=== PATIENT | male | born 1970 | race Caucasian/White ===

== ENCOUNTER 2021-01-14 18:51 | Inpatient (IN) | payer BC, SELFPAY ==
[2021-01-14 18:52] VITALS: BP 164/77; PULSE 97; RESP 24; TEMP 37.7; O2SAT 97; BMI 42.8
--- NOTE | 2021-01-14 19:15 | EX.ED.DYSGE1 ---
HPI History of Present Illness Chief Complaint: General Illness Informant: patient and spouse/S.O. Narrative Narrative: 50-year-old male presents the emergency room with fever and cough. Patient states that on evening he began to have rhinorrhea and a cough. He notes is progressed to have sweats chills headache sore throat diarrhea and today is feeling pressure in his chest. He is unvaccinated against Covid and influenza. He states that he went to work yesterday and spent most of the day at a [employer]. [facility] Medical History (Updated 01/14/21 @ 21:[address] Francisco Starks DO) Diabetes type 2, controlled Hypertension Home Medications glimepiride [Amaryl] 4 mg PO DAILY 01/14/21 [History Last Taken Unknown] lansoprazole [Prevacid] 30 mg PO DAILY 01/14/21 [History Last Taken Unknown] lisinopril [Prinivil] 20 mg PO DAILY 01/14/21 [History Last Taken Unknown] metformin [Glucophage] 500 mg PO BID 01/14/21 [History Last Taken Unknown] omega-3 fatty acids [[place] 3 Fish Oil Concentrate] 2,000 mg PO DAILY 01/14/21 [History Last Taken Unknown] simvastatin [Zocor] 40 mg PO DAILY 01/14/21 [History Last Taken Unknown] Allergy/AdvReac Type Severity Reaction Status Date / Time No Known Allergies Allergy Verified 01/14/21 18:55 Social History (Updated 01/14/21 @ 19:[address] Francisco Starks DO) Smoking Status: Never smoker substance use type: does not use ROS ROS ED Constitutional Constitutional ED: Reports chills and sweats; Denies weight loss Eyes Eyes: Denies change in vision or diplopia ENT ENT ED: Reports rhinorrhea and sore throat; Denies ear pain Cardiovascular Cardiovascular: Reports chest pain; Denies orthopnea, palpitations or racing heartbeat Respiratory/Chest Respiratory/Chest: Reports cough; Denies dyspnea or orthopnea Gastrointestinal Gastrointestinal: Reports diarrhea; Denies abdominal pain, nausea or vomiting Genitourinary Genitourinary ED: Denies dysuria, hematuria or urinary frequency Musculoskeletal Musculoskeletal: Reports myalgias; Denies arthralgias Integumentary Denies abscess or rash Neurologic Neurologic: Reports headache(s); Denies weakness Psychiatric Psychiatric: Denies anxiety, depression, suicidal ideation or suicidal thoughts Endocrine Endocrinology: Denies polydipsia, polyphagia or polyuria Allergic/Immunologic Allergic/Immunologic ED: Denies mouth swelling, tongue swelling or urticaria EXAM Physical Exam Const Vital Signs: 01/14/21 18:52 01/14/21 19:05 01/14/21 19:36 Temperature 99.9 F H 101.9 F H Temperature Source Temporal Oral Pulse Rate 97 Respiratory Rate 24 H Respiratory Effort Short of Breath Respiratory Pattern Tachypnea Blood Pressure 164/77 H Blood Pressure Mean 106 Pulse Ox 97 Oxygen Delivery Method Room Air 01/14/21 21:24 Temperature Temperature Source Pulse Rate 95 Respiratory Rate 24 H Respiratory Effort Respiratory Pattern Blood Pressure 129/56 H Blood Pressure Mean 80 Pulse Ox 89 Oxygen Delivery Method Room Air Positive well nourished and well developed General Appearance ED: well developed HEENT Reports normocephalic, head/scalp atraumatic, TM's clear and moist mucous membranes Negative for trauma Tympanic Membrane ED: Yes TM's clear Eyes PERRL and EOMs intact bilaterally Neck no lymphadenopathy, supple and no JVD Resp normal respiratory effort and clear to auscultation bilaterally Cardio regular rate and no murmurs Rate: tachycardic GI normal to inspection, nondistended, normoactive bowel sounds and non-tender Palpation: soft Back/Spine no CVA tenderness and normal ROM Extremity normal to inspection General Extremety ED: Negative for edema General Extremity: Negative for edema Neuro oriented x3 and CN's II-XII intact bilaterally Sensorium / Orientation: alert Motor Exam: strength 5/5 throughout Psych mental status grossly normal Mood & Affect: Negative for depressed or tearful Skin no rashes or lesions noted and no wounds MDM MDM MDM Narrative Medical decision making narrative: White count 4.7 with a platelet count of 177. Troponin level is 11. Chest x-ray reveals multifocal areas of infiltrate. Patient became hypoxic while here in the emergency department. He received albuterol and dexamethasone as well as Tylenol for his fever. CTA of the chest demonstrates multifocal areas of infiltrate but without pulmonary embolism. Patient received supplemental oxygen and will need to be admitted. I expressed my concern that this is the beginning of day 3 for him and he is already requiring oxygen and then he is at significant risk for severe Covid. Lab Data Attestation: I reviewed the patient's lab results. Labs: Laboratory Results - last 24 hr 01/14/21 01/14/21 01/14/21 19:26 19:26 19:26 WBC 4.7 RBC 5.16 Hgb 16.2 Hct 46.9 MCV 90.9 MCH 31.4 MCHC 34.5 RDW Std Deviation 42.2 RDW Coeff of Lucretia 12.7 Plt Count 177 MPV 9.6 Immature Gran % (Auto) 0.200 Neut % (Auto) 81.3 H Lymph % (Auto) 14.0 L Lanier % (Auto) 4.3 Eos % (Auto) 0.0 Baso % (Auto) 0.2 Absolute Neuts (auto) 3.8 Absolute Lymphs (auto) 0.65 L Nucleated RBC % 0 Sodium 131 L Potassium 4.2 Chloride 105 Carbon Dioxide 19.0 L Anion Gap 7 BUN 12 Creatinine 1.00 Estim Creat Clear Calc 92.26 Est GFR (MDRD) Af Amer 102 Est GFR (MDRD) Non-Af 84 BUN/Creatinine Ratio 12.0 Glucose 119 H Lactic Acid Cancelled Calcium 8.2 L Total Bilirubin 0.30 AST 74 H ALT 99 H Alkaline Phosphatase 57 Troponin I High Sens 11 Total Protein 7.8 Albumin 2.9 L Globulin 4.9 H Albumin/Globulin Ratio 0.6 L Radiography Diagnostic Testing: Clinical Impression(s) from Imaging Studies Chest X-Ray 01/14/21 19:40 IMPRESSION: Bilateral multifocal pneumonia, probably Covid. Electronically Signed: Miriam Schneider MD at 20:26 EST Tel , Service support , Chest CTA 01/14/21 20:05 Discharge Plan Dx/Rx/DC Orders Clinical Impression: COVID-19, Acute hypoxemic respiratory failure, Diabetes Disposition Disposition: [facility]
[2021-01-14 19:35] LABS: Absolute Lymphocyte Count 0.65 X10^3/uL (0.83-4.51); Absolute Neutrophil Count 3.8 X10^3/uL (2.0-7.7); Basophil# 0.01 X10^3/uL; Basophil% 0.2 % (0-1); Hematocrit 46.9 % (40-54); Hemoglobin 16.2 g/dL (13.0-16.5); Lymphocyte # 0.65 X10^3/ul (0.83-4.51); Mean Corp Hgb Conc 34.5 g/dL (32-36); Mean Corpuscular Hgb 31.4 pg (27.0-32.0); Mean Corpuscular Volume 90.9 fL (80-94); Mean Platelet Vol. 9.6 fl (6.2-12.0); Monocyte% 4.3 % (0-10); NRBC Flagged by Analyzer 0 % (0-5); Neutrophil # 3.78 X10^3/uL (2.7-7.7); Neutrophil % 81.3 % (47-70); Platelet Count 177 K/mm3 (150-450); RBC Distribution Width CV 12.7 % (11.6-14.6); RBC Distribution Width SD 42.2 fl (35.1-43.9); Red Blood Count 5.16 M/mm3 (4.6-6.2); White Blood Count 4.7 K/mm3 (4.4-11.0)
[2021-01-14 19:36] VITALS: TEMP 38.8
--- NOTE | 2021-01-14 19:40 | RAD_ITS ---
STUDY: X-RAY CHEST REASON FOR EXAM: Male, 50 years old. cough DYSPNEA, CHEST CONGESTION, COUGH, BODY ACHES, WEAKNESS SINCE SATURDAY NIGHT. TECHNIQUE: Frontal portable view of the chest COMPARISON: None. FINDINGS: There is extensive multifocal bilateral pneumonia. There is no pneumothorax, cardiomegaly or effusions. RAD/Chest 1 View (Portable) IMPRESSION: Bilateral multifocal pneumonia, probably Covid. Electronically Signed: Miriam Schneider MD at 20:26 EST Tel , Service support ,
[2021-01-14] MEDS: Acetaminophen 500 MG Tablet 1000 MG PO (19:59)
--- NOTE | 2021-01-14 20:05 | CT_ITS ---
STUDY: CTA CHEST REASON FOR EXAM: Male, 50 years old. Pulmonary embolism covid 19 RADIATION DOSAGE (If Supplied By Facility): CTDIvol = ( 29.89 ) mGy, DLP = ( 822.07 ) mGycm TECHNIQUE: The examination was performed with the intravenous administration of IV 100mL Isovue-370. Post-processing of the angiographic images was performed, with multiplanar reformation and 3D reconstruction. Individualized dose optimization techniques were used for this CT. COMPARISON: None. FINDINGS: CTA: PULMONARY ARTERIES: There is normal configuration and contrast opacification of pulmonary outflow tract, main pulmonary arteries, segmental and intersegmental pulmonary arteries bilaterally without evidence of intraluminal filling defects. AORTIC ARCH: The aortic arch and descending aorta have normal configuration. No evidence of dissection or aneurysmal dilatation. HEART: Cardiac contour is normal. No evidence pericardial effusion. CT CHEST: LUNGS: [Diffuse patchy areas of alveolar and interstitial infiltrate throughout all lobes. No consolidation, no effusion.. No mass. No consolidation. PLEURAL SPACES: Unremarkable, no effusion or pneumothorax.. MEDIASTINUM AND LYMPH NODES: Unremarkable. No significant adenopathy. BONES: Unremarkable ABDOMEN: Within normal limits. Other: None IMPRESSIONS: 1. No CTA evidence of pulmonary embolism. 2. No CTA evidence of aortic aneurysm or dissection 3. Normal CT appearance of the heart and pericardium. 4. Patchy areas of multifocal multi lobar interstitial and groundglass infiltrate. Pattern is consistent with multilobar atypical viral pneumonia/ Covid. No effusion. Electronically Signed: Mathieu Trinh MD at 21:42 EST Tel , Service support , CT/CTA Chest W/WO Contrast
[2021-01-14 20:18] LABS: ALB/GLOB Ratio 0.6 RATIO (0.9-2.4); AST(SGOT) 74 U/L (15-37); Alanine Aminotransfer ALT/SGPT 99 U/L (16-61); Albumin, Serum 2.9 g/dL (3.2-5.0); Alkaline Phosphatase 57 U/L (45-117); Anion Gap 7 (5-15); BUN 12 mg/dL (7-18); Calcium,Total 8.2 mg/dL (8.5-10.1); Chloride 105 mmol/L (98-107); EST Glomerular Filtration Rate 84 mL/min (>60); Est Glom Filt Rate - Afr Amer 102 mL/min (>60); Estimated Creatinine Clearance 92.26 ml/min; Globulin 4.9 g/dL (2.2-4.2); Glucose 119 mg/dL (74-106); Potassium 4.2 mmol/L (3.5-5.1); Protein, Total 7.8 g/dL (6.4-8.2); Sodium Level 131 mmol/L (136-145); Troponin-I HS 11 pg/mL (3.0-78.0)
[2021-01-14 21:24] VITALS: BP 129/56; PULSE 95; RESP 24; O2SAT 89
[2021-01-14] MEDS: INHALER, ASSIST DEVICES 1 EACH SPACER INHALATION (21:24)
[2021-01-14] MEDS: dexAMETHasone 4 MG Tablet 6 MG PO (21:24)
[2021-01-14 22:02] VITALS: TEMP 37.5; O2SAT 87; O2SAT 92
--- NOTE | 2021-01-14 22:37 | PCM.HP.STD ---
[facility] - General General Date of Admission: 01/14/21 Date of Service: 01/14/21 Chief Complaint: Malaise HPI Narrative BERTHA DOWLING, is a 50 M with a significant history of hypertension and diabetes mellitus who presents to the emergency department with a 2-day history of malaise. His symptoms started on . reported that on patient did not eat as much as he used to. Associated with his symptom is chills and diaphoresis. Further patient has body aches; shortness of breath and dry cough. He reports fatigue. He denies dysgeusia or anosmia. He is a COVID-19 unvaccinated. Patient required oxygen by nasal cannula at emergency department and he continue to be hypoxic on oxygen. [facility] Medical History (Updated 01/14/21 @ 23:[address] Soto Ramos MD) Diabetes type 2, controlled Hypertension Home Medications glimepiride [Amaryl] 4 mg PO DAILY 01/14/21 [History Last Taken Unknown] lansoprazole [Prevacid] 30 mg PO DAILY 01/14/21 [History Last Taken Unknown] lisinopril [Prinivil] 20 mg PO DAILY 01/14/21 [History Last Taken Unknown] metformin [Glucophage] 500 mg PO BID 01/14/21 [History Last Taken Unknown] omega-3 fatty acids [[place] 3 Fish Oil Concentrate] 2,000 mg PO DAILY 01/14/21 [History Last Taken Unknown] simvastatin [Zocor] 40 mg PO DAILY 01/14/21 [History Last Taken Unknown] Allergy/AdvReac Type Severity Reaction Status Date / Time No Known Allergies Allergy Verified 01/14/21 18:55 Family History Other Heart disease Surgical History History of appendectomy Social History Smoking Status: Never smoker substance use type: does not use ROS ROS Narrative Constitutional: Reports chills, fatigue and anorexia. Denies change in weight Eyes: Denies blurry vision, change in eye color, change in vision, discharge from eye(s), double vision, erythema, eye pain, loss of vision or other HEENT: Denies abnormal hearing, dysphagia, ear pain, epistaxis, headache(s), hearing loss, nasal congestion, or other Cardiovascular: Denies chest pain or palpitations. Respiratory/Chest: Reports shortness of breath and dry cough. Gastrointestinal: Denies abdominal pain, coffee ground emesis, constipation, diarrhea, dyspepsia, hematemesis, hematochezia, loose stools, melena, nausea, vomiting or other Genitourinary: Denies burning urination, difficulty urinating, dysuria, hematuria, nocturia, urinary frequency, urinary hesitancy, urinary incontinence, urinary urgency or other Musculoskeletal: Reports muscle aches denies arthralgias, back pain, joint pain, joint stiffness, joint swelling, neck pain or other Neurologic: Denies abnormal gait, abnormal speech, confusion, disequilibrium, dizziness, focal weakness, headache(s), numbness, paresthesias, seizure-like activity, seizures, syncope, tingling, tremor(s) or other Psychiatric: Denies anxiety, depression, homicidal ideation, suicidal ideation or other Endocrinology: Denies change in body appearance, cold intolerance, excessive sweating, heat intolerance, polydipsia, polyuria or other Hematologic/Lymphatic: Denies anemia, easy bleeding, easy bruising, lymphadenopathy or other Integumentary: Denies rashes Allergic/Immunologic: Denies rhinitis, hives, eczema, asthma or other Vital Signs Vital Signs Vital Signs: 01/14/21 18:52 01/14/21 19:05 01/14/21 19:36 Temperature 99.9 F H 101.9 F H Temperature Source Temporal Oral Pulse Rate 97 Respiratory Rate 24 H Respiratory Effort Short of Breath Respiratory Pattern Tachypnea Blood Pressure 164/77 H Blood Pressure Mean 106 Pulse Ox 97 Oxygen Delivery Method Room Air Oxygen Flow Rate (L/min) 01/14/21 21:24 01/14/21 22:02 Temperature 99.5 F H Temperature Source Oral Pulse Rate 95 Respiratory Rate 24 H Respiratory Effort Respiratory Pattern Blood Pressure 129/56 H Blood Pressure Mean 80 Pulse Ox 89 92 Oxygen Delivery Method Room Air Nasal Cannula Oxygen Flow Rate (L/min) 4 Weight Weight: 135.4 kg Body Mass Index (BMI) 42.8 Physical Exam Narrative Physical exam: General: Well-nourished, well-developed. Head: Normocephalic, atraumatic, no tenderness Eyes: PERRLA, EOMI ENT, no trauma, moist mucous membranes, no rhinorrhea Neck: Nontender, full range of motion, no spinal tenderness, deformities, step-off CVS: Regular rate and rhythm. S1-S2 present. No murmur, gallop or rub. Respiratory : Tachypnea, Rales. Chest wall nontender, no wheezing Abdomen: Soft, nontender, nondistended, normal bowel sounds, no masses : Deferred Back: Nontender, no CVA tenderness, no midline spinal tenderness, deformities, step-offs Extremities: Nontender full range of motion, no trauma Skin: Normal color, no trauma, abrasions Neuro: Alert, oriented, cranial nerves II through XII grossly intact. Psychiatry: Normal mood. Normal affect. Not depressed. Not anxious. Results Lab / Micro Data Result Diagrams: 01/14/21 19:26 01/14/21 19:26 Labs: Laboratory Results - last 24 hr 01/14/21 19:26: WBC 4.7, RBC 5.16, Hgb 16.2, Hct 46.9, MCV 90.9, MCH 31.4, MCHC 34.5, RDW Std Deviation 42.2, RDW Coeff of Lucretia 12.7, Plt Count 177, MPV 9.6, Immature Gran % (Auto) 0.200, Neut % (Auto) 81.3 H, Lymph % (Auto) 14.0 L, [place]rie % (Auto) 4.3, Eos % (Auto) 0.0, Baso % (Auto) 0.2, Absolute Neuts (auto) 3.8, Absolute Lymphs (auto) 0.65 L, Nucleated RBC % 0 01/14/21 19:26: Sodium 131 L, Potassium 4.2, Chloride 105, Carbon Dioxide 19.0 L, Anion Gap 7, BUN 12, Creatinine 1.00, Estim Creat Clear Calc 92.26, Est GFR (MDRD) Af Amer 102, Est GFR (MDRD) Non-Af 84, BUN/Creatinine Ratio 12.0, Glucose 119 H, Calcium 8.2 L, Total Bilirubin 0.30, AST 74 H, ALT 99 H, Alkaline Phosphatase 57, Troponin I High Sens 11, Total Protein 7.8, Albumin 2.9 L, Globulin 4.9 H, Albumin/Globulin Ratio 0.6 L 11/27/21 19:26: Lactic Acid Cancelled Micro: Microbiology 01/14/21 19:30 Mucosa - Nose Influenza Types A,B Direct FA (MISSAEL) - Final 01/14/21 19:30 Nasal Secretion SARS-CoV-2 Antigen (Rapid) - Final SARS-CoV-2 (COVID 19) Radiology Impression Chest X-Ray 01/14/21 19:40 IMPRESSION: Bilateral multifocal pneumonia, probably Covid. Electronically Signed: Miriam Schneider MD at 20:26 EST Tel , Service support , Chest CTA 01/14/21 20:05 Assessment & Plan Assessment/Plan (1) Acute hypoxemic respiratory failure: (2) COVID-19: (3) Pneumonia due to COVID-19 virus: PLAN: Acute hypoxemic respiratory failure secondary to SARS- COV 2 We will supplemental oxygen patient was 90 to 24% on 4 L. Patient was 87% on room air. Positive coronavirus test on presentation. Chest CTA and chest x-ray independently interpreted showed multifocal pneumonia. I agree radiologist interpretation. She Decadron at the emergency department and continued. Aquatic level is more than 30. AST and ALT are elevated likely secondary to Covid. Will order remdesivir. Review of labs showed normal white count with neutrophilia and lymphopenia. Trend CBC and CMP. Tylenol for fever Mucinex ordered Diabetes mellitus Patient with mild hyperglycemia on presentation Glimepiride continued. Anticipate that with Decadron blood glucose will be more elevated. Accu-Chek QA CHS with correction scale insulin ordered. Morbind Obesity BMI:41.4. Complicates care. Lifestyle modification recommended. Hypertension Blood pressure is not within goal Lisinopril continued. Trend blood pressure and adjust blood pressure medications. DVT prophylaxis Subcutaneous Lovenox ordered. Charges/Coding Visit Charges Inpatient E&M: 66067 Init Hosp L3
[2021-01-14 23:06] VITALS: BP 129/56; PULSE 95; RESP 24; TEMP 37.5; O2SAT 92
[2021-01-14 23:24] VITALS: BMI 41.3
[2021-01-14 23:29] VITALS: BP 147/62; PULSE 86; RESP 18; TEMP 37.7; O2SAT 94
--- NOTE | 2021-01-14 23:43 | PCS.PANDOC ---
PANDEMIC DOCUMENTATION INITIATED: Date: 10/03/2020 Time: 190
[2021-01-15] VITALS (14 sets, daily range): BP systolic 107–151; BP diastolic 49–78; PULSE 75–117; RESP 18–36; TEMP 36.7–38.7; O2SAT 93–98
--- NOTE | 2021-01-15 07:02 | PN.HOSP_ITS ---
Subjective Subjective Patient denies any acute events overnight per self and nursing report. Patient has maintained on 4 L nasal cannula since admission. He does report still feeling significantly fatigued and short of breath, more so when he is getting up and moving to the bathroom. Discussed CODE STATUS and patient is amenable to full code as well as treatments with remdesivir and if necessary air Vo, BiPAP and bar sitting up. Did at length discuss importance for vaccination against COVID-19 preferably with Pfizer or Moderna once out of quarantine and patient seemed amenable to this. Patient denies fevers, chills, nausea, emesis, abdominal pain, chest pain. Patient does admit to diarrhea. Objective Data Objective Data Vital Signs: Vital Signs Temp Pulse Resp BP Pulse Ox 98.7 F 75 18 146/72 H 93 01/15/21 03:16 01/15/21 03:16 01/15/21 03:16 01/15/21 03:16 01/15/21 03:16 Oxygen Flow Rate (L/min) 4 Oxygen Delivery Method Nasal Cannula Weight: 288 lb 9.361 oz Body Mass Index (BMI) 41.3 Intake & Output: Intake and Output for Last 24 Hours 01/13/21 01/14/21 01/15/21 23:59 23:59 23:59 Intake Total 372 / 372 Balance 372 / 372 Lab / Micro Data Result Diagrams: 01/15/21 07:38 01/15/21 07:38 Labs: Laboratory Results - last 24 hr 01/14/21 19:26: WBC 4.7, RBC 5.16, Hgb 16.2, Hct 46.9, MCV 90.9, MCH 31.4, MCHC 34.5, RDW Std Deviation 42.2, RDW Coeff of Lucretia 12.7, Plt Count 177, MPV 9.6, Immature Gran % (Auto) 0.200, Neut % (Auto) 81.3 H, Lymph % (Auto) 14.0 L, Door % (Auto) 4.3, Eos % (Auto) 0.0, Baso % (Auto) 0.2, Absolute Neuts (auto) 3.8, A bsolute Lymphs (auto) 0.65 L, Nucleated RBC % 0 01/14/21 19:26: Sodium 131 L, Potassium 4.2, Chloride 105, Carbon Dioxide 19.0 L , Anion Gap 7, BUN 12, Creatinine 1.00, Estim Creat Clear Calc 92.26, Est GFR (MDRD) Af Amer 102, Est GFR (MDRD) Non-Af 84, BUN/Creatinine Ratio 12.0, Glucose 119 H, Calcium 8.2 L, Total Bilirubin 0.30, AST 74 H, ALT 99 H, Alkaline Phosphatase 57, Troponin I High Sens 11, Total Protein 7.8, Albumin 2.9 L, Globulin 4.9 H, Albumin/Globulin Ratio 0.6 L 01/14/21 19:26: Lactic Acid Cancelled Micro: Microbiology 01/14/21 19:30 Mucosa - Nose Influenza Types A,B Direct FA (MISSAEL) - Final 01/14/21 19:30 Nasal Secretion SARS-CoV-2 Antigen (Rapid) - Final SARS-CoV-2 (COVID 19) Radiography Diagnostic Testing: Radiology Impression Chest X-Ray 01/14/21 19:40 IMPRESSION: Bilateral multifocal pneumonia, probably Covid. Electronically Signed: Miriam Schneider MD at 20:26 EST Tel , Service support , Chest CTA 01/14/21 20:05 Physical Exam Narrative Physical Examination: General: Awake, alert, oriented x 3 and cooperative, seated upright in the PCU bed, fatigued and ill-appearing, mildly increased respiratory rate. Skin: Normal color, normal turgor, no icterus, no cyanosis. HEENT: AT/NC, EOMI, PERRLA, mildly dry MM. Lungs: Significantly diffusely diminished, greater bases, mildly decreased effort, increased respiratory rate, no rales, ronchi or wheezing. Heart: Regular rate and rhythm; no gallop, rub audible. Abdomen: Soft, morbidly obese, NTTP, no obvious distention but habitus makes exam difficult, distant mildly hyperactive bowel sounds. Extremities: No cyanosis, clubbing, or edema. Neurological: Patient awake, alert, oriented as noted, cognitive function intact; pupils equally reactive to light and accommodation, cranial nerves II- XII grossly normal, moving all 4 extremities, no focal deficits, strength m oderately to severely globally decreased secondary to acute presentation. Psychiatric: Affect appears fatigued, ill-appearing, no acute evidence of depressive or anxiety feelings. Assessment & Plan Assessment/Plan (1) Pneumonia due to COVID-19 virus: (2) Acute hypoxemic respiratory failure: PLAN: The patient is a 50 y/o M w/ PMHx: Diabetes mellitus type II, Morbid Obesity, HTN, HLD, GERD who presents to the [facility] ED on 01/14/21 with history of 2-day history of increasing fatigue, malaise with symptoms starting on Thanksgiving with decreased oral intake, onset of chills, body aches, dyspnea, dry cough prompting eventual ED presentation with unvaccinated COVID status. #1. Acute Hypoxia secondary to Acute Bilateral Pneumonia secondary to Acute Viral Syndrome, COVID-19 with unvaccinated COVID status: Admitted to PCU, maintain on COVID precautions, will maintain on oxygen with wean as tolerated to room air, PRN albuterol, HOB, IS parameters w/ pending sputum cultures, respiratory viral panel and urine antigens, will obtain D-dimer, procalcitonin, CRP, CPK, Ferritin, LDH and BNP, continue supportive care including q 2 hour turning including prone given no prone bed availability and judicious hydration, closely monitor for worsening status for ARDS and multiorgan failure, will continue IV decadron x 10 doses, given presentation will also initiate IV remdesivir but defer to discretion of Infectious disease. If respiratory status worsens and patient requires airvo or BIPAP transition will initiate barcitinib regimen additionally with ID involvement. #2. Elevated LFTs: Secondary to likely #1, will continue to treat as noted above and trend CMP. #3. Hypertension: Continue home regimen including lisinopril with adjustments as needed given elevated BPs, PRN hydralazine. #4. Hyperlipidemia: Continue home statin regimen. #5. Morbid Obesity: Weight loss and lifestyle changes encouraged. #6. GERD: We will continue patient on PPI. #7. DVT prophylaxis: SCDs, Lovenox. #8. CODE status: Given significant presentation with hypoxia with Covid pneumonia and unvaccinated status, discussed CODE status at length including difference between FULL code, DNR-CCA and DNR-CC status. Following discussions about the differences in these status, requested Full Code status. Amenable to airvo and BIPAP. Amenable to barcitinib. Advanced Care Planning Face to Face Time: 16 minutes. Charges/Coding Visit Charges Inpatient E&M: 72754 Subs Hosp L2 Procedures Hospitalists Procedures: 16515 Advncd Care Plan 30 Min
[2021-01-15 07:50] LABS: Absolute Lymphocyte Count 0.62 X10^3/uL (0.83-4.51); Absolute Neutrophil Count 4.5 X10^3/uL (2.0-7.7); Basophil# 0.01 X10^3/uL; Basophil% 0.2 % (0-1); Hematocrit 48.3 % (40-54); Hemoglobin 15.9 g/dL (13.0-16.5); Lymphocyte # 0.62 X10^3/ul (0.83-4.51); Lymphocyte % 11.5 % (19-41); Mean Corp Hgb Conc 32.9 g/dL (32-36); Mean Corpuscular Hgb 30.6 pg (27.0-32.0); Mean Corpuscular Volume 92.9 fL (80-94); Mean Platelet Vol. 9.5 fl (6.2-12.0); Monocyte# 0.19 X10^3/uL; Monocyte% 3.5 % (0-10); NRBC Flagged by Analyzer 0 % (0-5); Neutrophil # 4.54 X10^3/uL (2.7-7.7); Neutrophil % 84.2 % (47-70); Platelet Count 175 K/mm3 (150-450); RBC Distribution Width CV 12.7 % (11.6-14.6); RBC Distribution Width SD 43.8 fl (35.1-43.9); White Blood Count 5.4 K/mm3 (4.4-11.0)
[2021-01-15 08:12] LABS: BNP,B-Type NATRIURETIC PEPTIDE 43.6 pg/mL (0-100)
[2021-01-15 08:21] LABS: ALB/GLOB Ratio 0.6 RATIO (0.9-2.4); AST(SGOT) 56 U/L (15-37); Alanine Aminotransfer ALT/SGPT 93 U/L (16-61); Albumin, Serum 2.9 g/dL (3.2-5.0); Alkaline Phosphatase 56 U/L (45-117); Anion Gap 7 (5-15); BUN 10 mg/dL (7-18); BUN/Creat Ratio 9.6 RATIO (10-20); Calcium,Total 8.2 mg/dL (8.5-10.1); Chloride 104 mmol/L (98-107); Creatinine, Serum 1.04 mg/dL (0.70-1.30); EST Glomerular Filtration Rate 80 mL/min (>60); Est Glom Filt Rate - Afr Amer 97 mL/min (>60); Estimated Creatinine Clearance 88.72 ml/min; Globulin 4.6 g/dL (2.2-4.2); Glucose 176 mg/dL (74-106); Potassium 4.4 mmol/L (3.5-5.1); Protein, Total 7.5 g/dL (6.4-8.2); Sodium Level 135 mmol/L (136-145)
[2021-01-15 08:24] LABS: Procalcitonin 0.23 ng/mL (0.00-0.09)
[2021-01-15 08:30] LABS: Ferritin 1079 ng/mL (26-388); LDH 333 U/L (87-241)
[2021-01-15] MEDS: Enoxaparin 40 MG/0.4 ML Syringe SC ×2 (09:59→21:35)
[2021-01-15] MEDS: Omega-3 Acid Ethyl Esters 1 GM Capsule 2 GM PO (09:59)
[2021-01-15] MEDS: Insulin Lispro 100 UNIT/ML INSULN.PEN SC ×2 (09:59→21:34)
[2021-01-15] MEDS: Lisinopril 20 MG Tablet PO (10:00)
[2021-01-15] MEDS: guaiFENesin 1,200 MG Tablet 1200 MG PO ×2 (10:00→21:35)
[2021-01-15] MEDS: Pantoprazole Sodium 40 MG Tablet PO (10:00)
[2021-01-15] MEDS: INHALER, ASSIST DEVICES 1 EACH SPACER INHALATION (10:02)
--- NOTE | 2021-01-15 10:10 | NURSING ---
on continuous pulse ox monitoring at desk
[2021-01-15] MEDS: Acetaminophen 325 MG Tablet 650 MG PO (12:25)
[2021-01-15 12:31] LABS: Bedside Glucose 149 mg/dL (70-110)
--- NOTE | 2021-01-15 14:12 | EKG12_ITS ---
Test Reason : TACHYCARDIA Blood Pressure : / mmHG Vent. Rate : 100 BPM Atrial Rate : 100 BPM P-R Int : 136 ms QRS Dur : 078 ms QT Int : 298 ms P-R-T Axes : 011 034 029 degrees QTc Int : 384 ms Normal sinus rhythm Normal ECG No previous ECGs available Confirmed by BOBBY MIKE, GABINO ([id number]), photograph editor MALI HERNANDEZ ([id number]) on 01/17/2021 9:24:37 AM Referred By: TOO Confirmed By:GABINO ROSALES MD
[2021-01-15] MEDS: Ibuprofen 600 MG Tablet PO (16:52)
[2021-01-15 17:11] LABS: Bedside Glucose 123 mg/dL (70-110)
[2021-01-15] MEDS: 0.9% Saline Lock 10 ML Syringe IV (21:18)
[2021-01-15] MEDS: Atorvastatin Calcium 20 MG Tablet PO (21:35)
[2021-01-15 21:46] LABS: Bedside Glucose 205 mg/dL (70-110)
[2021-01-16] VITALS (16 sets, daily range): BP systolic 109–159; BP diastolic 62–89; PULSE 79–100; RESP 18–28; TEMP 37.3–39.7; O2SAT 92–98
[2021-01-16] MEDS: Ibuprofen 600 MG Tablet PO ×2 (03:10→15:32)
--- NOTE | 2021-01-16 06:35 | PN.HOSP_ITS ---
Subjective Subjective Patient overnight with significant episode of shortness of breath following ambulation as a room with notable hypoxia and administration of aerosol following which she had what appeared on monitor to be SVT which resolved prior to any EKG being obtained. Patient at that time had increased up to 3 L nasal cannula but improved following rest. He denies any episodes of chest discomfort. He does appear significantly fatigued and states that he has had difficulty with incentive spirometry and is able to do less. Patient denies chills, nausea, emesis, abdominal pain, chest pain. Objective Data Objective Data Vital Signs: Vital Signs Temp Pulse Resp BP Pulse Ox 101.5 F H 85 20 H 144/83 H 93 01/16/21 03:09 01/16/21 03:09 01/16/21 03:09 01/16/21 03:09 01/16/21 03:58 Oxygen Flow Rate (L/min) 3 Oxygen Delivery Method Nasal Cannula Weight: 288 lb 9.361 oz Body Mass Index (BMI) 41.3 Intake & Output: Intake and Output for Last 24 Hours 01/14/21 01/15/21 01/16/21 23:59 23:59 23:59 Intake Total 1322 / 1322 300 / 300 Balance 1322 / 1322 300 / 300 Lab / Micro Data Result Diagrams: 01/16/21 06:30 01/16/21 09:57 Labs: Laboratory Results - last 24 hr 01/15/21 07:38: WBC 5.4, RBC 5.20, Hgb 15.9, Hct 48.3, MCV 92.9, MCH 30.6, MCHC 32.9, RDW Std Deviation 43.8, RDW Coeff of Lucretia 12.7, Plt Count 175, MPV 9.5, Immature Gran % (Auto) 0.600, Neut % (Auto) 84.2 H, Lymph % (Auto) 11.5 L, [place] % (Auto) 3.5, Eos % (Auto) 0.0, Baso % (Auto) 0.2, Absolute Neuts (auto) 4.5, Absolute Lymphs (auto) 0.62 L, Nucleated RBC % 0 01/15/21 07:38: Sodium 135 L, Potassium 4.4, Chloride 104, Carbon Dioxide 24.0, Anion Gap 7, BUN 10, Creatinine 1.04, Estim Creat Clear Calc 88.72, Est GFR (MDRD) Af Amer 97, Est GFR (MDRD) Non-Af 80, BUN/Creatinine Ratio 9.6 L, Glucose 176 H, Calcium 8.2 L, Total Bilirubin 0.30, AST 56 H, ALT 93 H, Alkaline Phosphatase 56, Total Protein 7.5, Albumin 2.9 L, Globulin 4.6 H, Albumin/Globulin Ratio 0.6 L 01/15/21 07:38: D-Dimer Quant (PE/DVT) 0.50 H 01/15/21 07:38: Ferritin 1079 H, Lactate Dehydrogenase 333 H, C-React Prot Ext Range 80.40 H 01/15/21 07:38: B-Natriuretic Peptide 43.6 01/15/21 07:38: Procalcitonin 0.23 H 01/15/21 12:13: POC Glucose 149 H 01/15/21 16:50: POC Glucose 123 H 01/15/21 21:32: POC Glucose 205 H Micro: Microbiology 01/15/21 15:55 Interface Orders Streptococcus pneumoniae Antigen (M - Final 01/15/21 15:55 Urine, Clean Catch Legionella Antigen - Final 01/14/21 19:30 Mucosa - Nose Influenza Types A,B Direct FA (MISSAEL) - Final 01/14/21 19:30 Nasal Secretion SARS-CoV-2 Antigen (Rapid) - Final SARS-CoV-2 (COVID 19) Physical Exam Narrative Physical Examination: General: Awake, alert, oriented x 3 and cooperative, seated upright in the PCU bed, more fatigued than day prior, increased work of breathing above day prior. Skin: Normal color, normal turgor, no icterus, no cyanosis. HEENT: AT/NC, EOMI, PERRLA, mildly dry MM. Lungs: Significantly diffusely diminished, greater bases, mildly decreased effort, increased respiratory rate and some accessory muscle usage, worsened appearance than day prior, no rales, ronchi or wheezing. Heart: Regular rate and rhythm; no gallop, rub audible. Abdomen: Soft, morbidly obese, NTTP, no obvious distention but habitus makes exam difficult, distant mildly hyperactive bowel sounds. Extremities: No cyanosis, clubbing, or edema. Neurological: Patient awake, alert, oriented as noted, cognitive function intact; pupils equally reactive to light and accommodation, cranial nerves II- XII grossly normal, moving all 4 extremities, no focal deficits, strength moderately to severely globally decreased secondary to acute presentation. Psychiatric: Affect appears fatigued, worsened respiratory status appearance with increased effort and accessory muscle usage, no acute evidence of depressiv e or anxiety feelings. Assessment & Plan Assessment/Plan (1) Pneumonia due to COVID-19 virus: (2) Acute hypoxemic respiratory failure: PLAN: The patient is a 50 y/o M w/ PMHx: Diabetes mellitus type II, Morbid Obesity, HTN, HLD, GERD who presents to the [facility] ED on 01/14/21 with history of 2-day history of increasing fatigue, malaise with symptoms starting on Thanksgiving with decreased oral intake, onset of chills, body aches, dyspnea, dry cough prompting eventual ED presentation with unvaccinated COVID status. #1. Acute Hypoxic Respiratory Failure secondary to Acute Bilateral Pneumonia secondary to Acute Viral Syndrome, COVID-19 with unvaccinated COVID status: Admitted to PCU, maintained on COVID precautions until 01/31/21, maintain on oxygen with wean as tolerated to room air, given possible SVT following albuterol treatment will discontinue, HOB, IS parameters w/ pending sputum cultures, negative urine antigens, respiratory viral panel still requested, inflammatory Covid panel requested and obtained, continue supportive care including q 2 hour turning including prone given no prone bed availability and judicious hydration, closely monitor for worsening status for ARDS and multiorgan failure, patient initiated and continued on IV decadron x 10 doses, given presentation patient initiated and continued on IV remdesivir but defer to discretion of Infectious disease. If respiratory status worsens and patient requires airvo or BIPAP transition will initiate barcitinib regimen additionally with ID involvement. #2. Elevated LFTs: Admission AST/ALT 56/93, secondary to likely #1, will continue to treat as noted above, 01/16/2021 AST/ALT 59/77, continue to trend. #3. Potential cardiac arrhythmia, SVT: Patient with appearance on monitor SVT following aerosol treatments, discontinue these treatments, continue to closely monitor, no events since. #5. Hypertension: Continue home regimen including lisinopril with adjustments as needed given elevated BPs, PRN hydralazine. #6. Hyperlipidemia: Continue home statin regimen. #7. Morbid Obesity: Weight loss and lifestyle changes encouraged. #8. GERD: We will continue patient on PPI. #9. DVT prophylaxis: SCDs, Lovenox. #10. CODE status: Full Code status, amenable to airvo and BIPAP. Amenable to barcitinib. Charges/Coding Visit Charges Inpatient E&M: 62662 Subs Hosp L2
[2021-01-16 06:36] LABS: Bedside Glucose 170 mg/dL (70-110)
[2021-01-16 06:55] LABS: Absolute Lymphocyte Count 0.96 X10^3/uL (0.83-4.51); Absolute Neutrophil Count 4.2 X10^3/uL (2.0-7.7); Basophil# 0.01 X10^3/uL; Basophil% 0.2 % (0-1); Hematocrit 46.4 % (40-54); Hemoglobin 15.9 g/dL (13.0-16.5); Lymphocyte # 0.96 X10^3/ul (0.83-4.51); Lymphocyte % 17.8 % (19-41); Mean Corp Hgb Conc 34.3 g/dL (32-36); Mean Corpuscular Hgb 31.2 pg (27.0-32.0); Mean Platelet Vol. 9.9 fl (6.2-12.0); Monocyte# 0.21 X10^3/uL; Monocyte% 3.9 % (0-10); NRBC Flagged by Analyzer 0 % (0-5); Neutrophil # 4.18 X10^3/uL (2.7-7.7); Neutrophil % 77.7 % (47-70); POSITIVE MORPHOLOGY YES; Platelet Count 191 K/mm3 (150-450); RBC Distribution Width CV 12.9 % (11.6-14.6); RBC Distribution Width SD 43.2 fl (35.1-43.9); White Blood Count 5.4 K/mm3 (4.4-11.0)
[2021-01-16 07:04] LABS: Differential Indicated SCAN CRITERIA MET
[2021-01-16 08:24] LABS: Reactive Lymphocyte RARE
[2021-01-16] MEDS: Lisinopril 20 MG Tablet PO (09:44)
[2021-01-16] MEDS: Pantoprazole Sodium 40 MG Tablet PO (09:44)
[2021-01-16] MEDS: guaiFENesin 1,200 MG Tablet 1200 MG PO ×2 (09:44→22:35)
[2021-01-16] MEDS: Enoxaparin 40 MG/0.4 ML Syringe SC ×2 (09:44→22:35)
[2021-01-16] MEDS: Omega-3 Acid Ethyl Esters 1 GM Capsule 2 GM PO (09:44)
[2021-01-16 10:48] LABS: ALB/GLOB Ratio 0.6 RATIO (0.9-2.4); AST(SGOT) 59 U/L (15-37); Alanine Aminotransfer ALT/SGPT 77 U/L (16-61); Albumin, Serum 2.7 g/dL (3.2-5.0); Alkaline Phosphatase 53 U/L (45-117); Anion Gap 7 (5-15); BUN 18 mg/dL (7-18); BUN/Creat Ratio 17.5 RATIO (10-20); Calcium,Total 8.1 mg/dL (8.5-10.1); Chloride 102 mmol/L (98-107); Creatinine, Serum 1.03 mg/dL (0.70-1.30); EST Glomerular Filtration Rate 81 mL/min (>60); Est Glom Filt Rate - Afr Amer 98 mL/min (>60); Estimated Creatinine Clearance 89.58 ml/min; Globulin 4.7 g/dL (2.2-4.2); Glucose 178 mg/dL (74-106); Potassium 4.1 mmol/L (3.5-5.1); Protein, Total 7.4 g/dL (6.4-8.2); Sodium Level 133 mmol/L (136-145)
--- NOTE | 2021-01-16 13:08 | CASEMGMT ---
Assessment- SW completed assessment with patient. Living situation- Patient lives with his in a 1 story home with a couple of entry steps PCP: Griselda Specialists: None Pharmacy: Normally [facility] in [place], but that is only when he is working. He would prefer [facility] Pharmacy at discharge. DME: None ADL's/IADL's: Patient is normally independent in all activities. He still works Past SNF/rehab: None Past HH: None LW: None POA: None Plan: Patient at this time plans on returning home. ISAAC and RN CM will follow and assist with d/c planning as needed. Marta Torre [employer] MEL
[2021-01-16] MEDS: Acetaminophen 325 MG Tablet 650 MG PO (14:55)
[2021-01-16] MEDS: Ondansetron 4 MG/2 ML Vial IV (14:56)
[2021-01-16 15:55] LABS: Bedside Glucose 152 mg/dL (70-110)
[2021-01-16] MEDS: Insulin Lispro 100 UNIT/ML INSULN.PEN SC (16:40)
[2021-01-16 17:00] LABS: Bedside Glucose 167 mg/dL (70-110)
[2021-01-16] MEDS: Atorvastatin Calcium 20 MG Tablet PO (22:35)
[2021-01-16 23:05] LABS: Bedside Glucose 139 mg/dL (70-110)
[2021-01-17] VITALS (13 sets, daily range): BP systolic 116–141; BP diastolic 75–88; PULSE 80–88; RESP 17–24; TEMP 37.4–38.6; O2SAT 90–96
[2021-01-17] MEDS: Acetaminophen 325 MG Tablet 650 MG PO ×2 (06:20→22:11)
[2021-01-17] MEDS: Insulin Lispro 100 UNIT/ML INSULN.PEN SC ×2 (06:24→11:35)
--- NOTE | 2021-01-17 06:32 | PN.HOSP_ITS ---
Subjective Subjective Patient overnight with no acute events however did decrease up to 5 L nasal cannula but denied any recurrent issues with any tachycardia following aerosol discontinuation. He does still report being significantly fatigued with any movement or activity. Patient denies fevers, chills, nausea, emesis, abdominal pain, chest pain. Objective Data Objective Data Vital Signs: Vital Signs Temp Pulse Resp BP Pulse Ox 101.5 F H 88 17 140/78 H 92 01/17/21 05:55 01/17/21 05:55 01/17/21 05:55 01/17/21 05:55 01/17/21 05:55 Oxygen Flow Rate (L/min) 5 Oxygen Delivery Method Nasal Cannula Weight: 288 lb 9.361 oz Body Mass Index (BMI) 41.3 Intake & Output: Intake and Output for Last 24 Hours 01/15/21 01/16/21 01/17/21 23:59 23:59 23:59 Intake Total 1322 / 1322 780 / 780 250 / 250 Output Total 2 / 502 750 / 750 Balance 1322 / 1322 778 / 278 -500 / -500 Lab / Micro Data Result Diagrams: 01/17/21 07:18 01/17/21 07:18 Labs: Laboratory Results - last 24 hr 01/16/21 06:29: POC Glucose 170 H 01/16/21 06:30: WBC 5.4, RBC 5.10, Hgb 15.9, Hct 46.4, MCV 91.0, MCH 31.2, MCHC 34.3, RDW Std Deviation 43.2, RDW Coeff of Lucretia 12.9, Plt Count 191, MPV 9.9, Immature Gran % (Auto) 0.400, Neut % (Auto) 77.7 H, Lymph % (Auto) 17.8 L, [place] % (Auto) 3.9, Eos % (Auto) 0.0, Baso % (Auto) 0.2, Absolute Neuts (auto) 4.2, Absolute Lymphs (auto) 0.96, Nucleated RBC % 0, Reactive Lymphocytes RARE 01/16/21 06:30: Sodium Cancelled, Potassium Cancelled, Chloride Cancelled, Carbon Dioxide Cancelled, Anion Gap Cancelled, BUN Cancelled, Creatinine Cancelled, Estim Creat Clear Calc Cancelled, Est GFR (MDRD) Af Amer Cancelled, Est GFR (MDRD) Non-Af Cancelled, BUN/Creatinine Ratio Cancelled, Glucose Cancelled, Calcium Cancelled, Total Bilirubin Cancelled, AST Cancelled, ALT Cancelled, Alkaline Phosphatase Cancelled, Total Protein Cancelled, Albumin Cancelled, Globulin Cancelled, Albumin/Globulin Ratio Cancelled 01/16/21 09:57: Sodium 133 L, Potassium 4.1, Chloride 102, Carbon Dioxide 24.0, Anion Gap 7, BUN 18, Creatinine 1.03, Estim Creat Clear Calc 89.58, Est GFR (MDRD) Af Amer 98, Est GFR (MDRD) Non-Af 81, BUN/Creatinine Ratio 17.5, Glucose 178 H, Calcium 8.1 L, Total Bilirubin 0.30, AST 59 H, ALT 77 H, Alkaline Phosphatase 53, Total Protein 7.4, Albumin 2.7 L, Globulin 4.7 H, Albumin/Globulin Ratio 0.6 L 01/16/21 11:27: POC Glucose 152 H 01/16/21 16:39: POC Glucose 167 H 01/16/21 22:38: POC Glucose 139 H Micro: Microbiology 01/15/21 15:30 Mucosa - Nasopharyngeal Respiratory Panel (PCR) - Final 01/15/21 23:20 Sputum, Expectorated/Coughed Gram Stain - Final 01/15/21 15:55 Interface Orders Streptococcus pneumoniae Antigen (M - Final 01/15/21 15:55 Urine, Clean Catch Legionella Antigen - Final 01/14/21 19:30 Mucosa - Nose Influenza Types A,B Direct FA (MISSAEL) - Final 01/14/21 19:30 Nasal Secretion SARS-CoV-2 Antigen (Rapid) - Final SARS-CoV-2 (COVID 19) Physical Exam Narrative Physical Examination: General: Awake, alert, oriented x 3 and cooperative, seated upright in the PCU bed, remains fatigued and evidence of ongoing dyspnea with increased work of breathing. Skin: Normal color, normal turgor, no icterus, no cyanosis. HEENT: AT/NC, EOMI, PERRLA, mildly dry MM. Lungs: Remains diffusely diminished, greater bases, increased effort, still ongoing increased respiratory rate and some accessory muscle usage, no rales, ronchi or wheezing. Heart: Regular rate and rhythm; no gallop, rub audible. Abdomen: Soft, morbidly obese, NTTP, no obvious distention but habitus makes exam difficult, normalized BS. Extremities: No cyanosis, clubbing, or edema. Neurological: Patient awake, alert, oriented as noted, cognitive function intact; pupils equally reactive to light and accommodation, cranial nerves II- XII grossly normal, moving all 4 extremities, no focal deficits, strength moderately to severely globally decreased secondary to acute presentation. Psychiatric: Affect appears fatigued, ongoing respiratory effort increased, no acute evidence of depressive or anxiety feelings. Assessment & Plan Assessment/Plan (1) Pneumonia due to COVID-19 virus: (2) Acute hypoxemic respiratory failure: PLAN: The patient is a 50 y/o M w/ PMHx: Diabetes mellitus type II, Morbid Obesity, HTN, HLD, GERD who presents to the [facility] ED on 01/14/21 with history of 2-day history of increasing fatigue, malaise with symptoms starting on Thanksgiving with decreased oral intake, onset of chills, body aches, dyspnea, dry cough prompting eventual ED presentation with unvaccinated COVID status. #1. Acute Hypoxic Respiratory Failure secondary to Acute Bilateral Pneumonia se condary to Acute Viral Syndrome, COVID-19 with unvaccinated COVID status: Admitted to PCU, maintained on COVID precautions until 01/31/21, maintain on oxygen with wean as tolerated to room air, given possible SVT following albuterol treatment will discontinue, HOB, IS parameters w/ pending sputum cu ltures, negative urine antigens, respiratory viral panel still requested, inflammatory Covid panel requested and obtained, continue supportive care including q 2 hour turning including prone given no prone bed availability and judicious hydration, closely monitor for worsening status for ARDS and mu ltiorgan failure, patient initiated and continued on IV decadron x 10 doses, given presentation patient initiated and continued on IV remdesivir but defer to discretion of Infectious disease. If respiratory status worsens and patient requires airvo or BIPAP transition will initiate barcitinib regimen additionally with ID involvement. #2. Elevated LFTs: Admission AST/ALT 56/93, secondary to likely #1, will continue to treat as noted above, 01/17/2021 AST/ALT 62/70, continue to trend. #3. Potential cardiac arrhythmia, SVT: Patient with appearance on monitor SVT following aerosol treatments, discontinued these treatments, continue to closely monitor, no events since. #5. Hypertension: Continue home regimen including lisinopril with adjustments as needed given elevated BPs, PRN hydralazine. #6. Hyperlipidemia: Continue home statin regimen. #7. Morbid Obesity: Weight loss and lifestyle changes encouraged. #8. GERD: We will continue patient on PPI. #9. DVT prophylaxis: SCDs, Lovenox. #10. CODE status: Full Code status, amenable to airvo and BIPAP. Amenable to barcitinib. Charges/Coding Visit Charges Inpatient E&M: 66894 Subs Hosp L2
[2021-01-17 06:51] LABS: Bedside Glucose 165 mg/dL (70-110)
[2021-01-17 07:34] LABS: Absolute Lymphocyte Count 0.86 X10^3/uL (0.83-4.51); Absolute Neutrophil Count 3.6 X10^3/uL (2.0-7.7); Basophil# 0.01 X10^3/uL; Basophil% 0.2 % (0-1); Hemoglobin 15.6 g/dL (13.0-16.5); Lymphocyte # 0.86 X10^3/ul (0.83-4.51); Lymphocyte % 17.8 % (19-41); Mean Corp Hgb Conc 33.2 g/dL (32-36); Mean Corpuscular Hgb 30.4 pg (27.0-32.0); Mean Corpuscular Volume 91.4 fL (80-94); Mean Platelet Vol. 9.7 fl (6.2-12.0); Monocyte# 0.35 X10^3/uL; Monocyte% 7.2 % (0-10); NRBC Flagged by Analyzer 0 % (0-5); Neutrophil % 74.4 % (47-70); Platelet Count 214 K/mm3 (150-450); RBC Distribution Width CV 12.9 % (11.6-14.6); RBC Distribution Width SD 43.5 fl (35.1-43.9); Red Blood Count 5.14 M/mm3 (4.6-6.2); White Blood Count 4.8 K/mm3 (4.4-11.0)
[2021-01-17 08:01] LABS: ALB/GLOB Ratio 0.6 RATIO (0.9-2.4); AST(SGOT) 62 U/L (15-37); Alanine Aminotransfer ALT/SGPT 70 U/L (16-61); Albumin, Serum 2.6 g/dL (3.2-5.0); Alkaline Phosphatase 51 U/L (45-117); Anion Gap 10 (5-15); BUN 16 mg/dL (7-18); BUN/Creat Ratio 21.7 RATIO (10-20); Calcium,Total 8.2 mg/dL (8.5-10.1); Chloride 102 mmol/L (98-107); Creatinine, Serum 0.74 mg/dL (0.70-1.30); EST Glomerular Filtration Rate 119 mL/min (>60); Est Glom Filt Rate - Afr Amer 144 mL/min (>60); Estimated Creatinine Clearance 124.68 ml/min; Globulin 4.6 g/dL (2.2-4.2); Glucose 150 mg/dL (74-106); Protein, Total 7.2 g/dL (6.4-8.2); Sodium Level 132 mmol/L (136-145)
[2021-01-17] MEDS: Omega-3 Acid Ethyl Esters 1 GM Capsule 2 GM PO (10:25)
[2021-01-17] MEDS: Pantoprazole Sodium 40 MG Tablet PO (10:25)
[2021-01-17] MEDS: Ibuprofen 600 MG Tablet PO (10:25)
[2021-01-17] MEDS: Lisinopril 20 MG Tablet PO (10:25)
[2021-01-17] MEDS: Enoxaparin 40 MG/0.4 ML Syringe SC ×2 (10:26→22:10)
[2021-01-17] MEDS: guaiFENesin 1,200 MG Tablet 1200 MG PO ×2 (10:26→22:11)
[2021-01-17 11:45] LABS: Bedside Glucose 174 mg/dL (70-110)
[2021-01-17 16:21] LABS: Bedside Glucose 142 mg/dL (70-110)
[2021-01-17] MEDS: Atorvastatin Calcium 20 MG Tablet PO (22:11)
[2021-01-17 22:35] LABS: Bedside Glucose 142 mg/dL (70-110)
[2021-01-18] VITALS (11 sets, daily range): BP systolic 123–142; BP diastolic 56–92; PULSE 77–97; RESP 16–24; TEMP 36.2–38.5; O2SAT 87–94
[2021-01-18] MEDS: Ibuprofen 600 MG Tablet PO ×3 (00:09→22:18)
[2021-01-18] MEDS: Acetaminophen 325 MG Tablet 650 MG PO ×3 (05:14→22:19)
[2021-01-18 05:40] LABS: Bedside Glucose 122 mg/dL (70-110)
--- NOTE | 2021-01-18 07:05 | PN.HOSP_ITS ---
Subjective Subjective Patient overnight with significant oxygen or increase requirements and some difficulty with proning. Patient more fatigued and performing less positional changes as well as less incentive spirometry. Education regarding the importance of these items discussed and strongly encouraged considered attempts for proning. Discussed with patient that if he does transition to a need for air Vo would request infectious disease consultation for consideration Barcitinib. Patient denies fevers, chills, nausea, emesis, abdominal pain, chest pain. Objective Data Objective Data Vital Signs: Vital Signs Temp Pulse Resp BP Pulse Ox 98.6 F 77 19 H 142/92 H 92 01/18/21 03:29 01/18/21 03:29 01/18/21 03:29 01/18/21 03:29 01/18/21 03:29 Oxygen Flow Rate (L/min) 10 Oxygen Delivery Method Nasal Cannula Weight: 288 lb 9.361 oz Body Mass Index (BMI) 41.3 Intake & Output: Intake and Output for Last 24 Hours 01/16/21 01/17/21 01/18/21 23:59 23:59 23:59 Intake Total 780 / 780 1030 / 1030 650 / 650 Output Total 2 / 502 2100 / 2100 400 / 400 Balance 778 / 278 -1070 / -1070 250 / 250 Lab / Micro Data Result Diagrams: 01/18/21 07:00 01/18/21 07:00 Labs: Laboratory Results - last 24 hr 01/17/21 07:18: WBC 4.8, RBC 5.14, Hgb 15.6, Hct 47.0, MCV 91.4, MCH 30.4, MCHC 33.2, RDW Std Deviation 43.5, RDW Coeff of Lucretia 12.9, Plt Count 214, MPV 9.7, Immature Gran % (Auto) 0.400, Neut % (Auto) 74.4 H, Lymph % (Auto) 17.8 L, [place] % (Auto) 7.2, Eos % (Auto) 0.0, Baso % (Auto) 0.2, Absolute Neuts (auto) 3.6, Absolute Lymphs (auto) 0.86, Nucleated RBC % 0 01/17/21 07:18: Sodium 132 L, Potassium 4.0, Chloride 102, Carbon Dioxide 20.0 L , Anion Gap 10, BUN 16, Creatinine 0.74, Estim Creat Clear Calc 124.68, Est GFR (MDRD) Af Amer 144, Est GFR (MDRD) Non-Af 119, BUN/Creatinine Ratio 21.7 H, Glucose 150 H, Calcium 8.2 L, Total Bilirubin 0.40, AST 62 H, ALT 70 H, Alkaline Phosphatase 51, Total Protein 7.2, Albumin 2.6 L, Globulin 4.6 H, Albumin/Globulin Ratio 0.6 L 01/17/21 11:34: POC Glucose 174 H 01/17/21 16:05: POC Glucose 142 H 01/17/21 22:07: POC Glucose 142 H 01/18/21 05:17: POC Glucose 122 H Micro: Microbiology 01/14/21 19:30 Blood Culture (Wb) - Anticubital Right Blood Culture - Preliminary No growth in 48 hours. 01/14/21 19:26 Blood Culture (Wb) - Anticubital Left Blood Culture - Preliminary No growth in 48 hours. 01/15/21 23:20 Sputum, Expectorated/Coughed Gram Stain - Final 01/15/21 23:20 Sputum, Expectorated/Coughed Respiratory Culture - Preliminary Beta hemolytic organism 01/15/21 15:30 Mucosa - Nasopharyngeal Respiratory Panel (PCR) - Final 01/15/21 15:55 Interface Orders Streptococcus pneumoniae Antigen (M - Final 01/15/21 15:55 Urine, Clean Catch Legionella Antigen - Final 01/14/21 19:30 Mucosa - Nose Influenza Types A,B Direct FA (MISSAEL) - Final 01/14/21 19:30 Nasal Secretion SARS-CoV-2 Antigen (Rapid) - Final SARS-CoV-2 (COVID 19) Physical Exam Narrative Physical Examination: General: Awake, alert, oriented x 3 and cooperative, seated upright in the PCU bedside chair, ongoing increased fatigue, increased respiratory rate and accessory muscle usage, currently on higher supplementation at 10 L. Skin: Normal color, normal turgor, no icterus, no cyanosis. HEENT: AT/NC, EOMI, PERRLA, mildly dry MM. Lungs: Remains diffusely diminished, greater bases, increased effort, still ongoing increased respiratory rate and some accessory muscle usage, no rales, ronchi or wheezing. Heart: Regular rate and rhythm; no gallop, rub audible. Abdomen: Soft, morbidly obese, NTTP, no obvious distention but habitus makes exam difficult, normalized BS. Extremities: No cyanosis, clubbing, or edema. Neurological: Patient awake, alert, oriented as noted, cognitive function intact; pupils equally reactive to light and accommodation, cranial nerves II- XII grossly normal, moving all 4 extremities, no focal deficits, strength w orsening, moderately to severely globally decreased secondary to acute presentation. Psychiatric: Affect appears fatigued, ongoing respiratory effort increased, no acute evidence of depressive or anxiety feelings. Assessment & Plan Assessment/Plan (1) Pneumonia due to COVID-19 virus: (2) Acute hypoxemic respiratory failure: PLAN: The patient is a 50 y/o M w/ PMHx: Diabetes mellitus type II, Morbid Obesity, HTN, HLD, GERD who presents to the [facility] ED on 01/14/21 with history of 2-day history of increasing fatigue, malaise with symptoms starting on Thanksgiving with decreased oral intake, onset of chills, body aches, dyspnea, dry cough prompting eventual ED presentation with unvaccinated COVID status. #1. Acute Hypoxic Respiratory Failure secondary to Acute Bilateral Pneumonia secondary to Acute Viral Syndrome, COVID-19 with unvaccinated COVID status: Admitted to PCU, maintained on COVID precautions until 01/31/21, maintained on oxygen with wean as tolerated to room air, given possible SVT following albuterol treatment discontinued, HOB, IS parameters w/ pending sputum cultures, negative urine antigens, respiratory viral panel still requested, inflammatory Covid panel obtained, continued supportive care including q 2 hour turning including prone given no prone bed availability and judicious hydration, closely monitor for worsening status for ARDS and multiorgan failure, patient initiated and continued on IV decadron x 10 doses, given presentation patient initiated and continued on IV remdesivir but defer to discretion of Infectious disease. If respiratory status worsens and patient requires airvo or BIPAP transition will initiate barcitinib regimen additionally with ID involvement. Do suspect potential need for air Vo initiation 01/18/2021 evening. #2. Elevated LFTs: Admission AST/ALT 56/93, secondary to likely #1, will continue to treat as noted above, 01/18/2021 AST/ALT 69/73, continue to trend. #3. Potential cardiac arrhythmia, SVT: Patient with appearance on monitor SVT following aerosol treatments, discontinued these treatments, continue to closely monitor, no events since. #5. Hypertension: Continue home regimen including lisinopril with adjustments as needed given elevated BPs, PRN hydralazine. #6. Hyperlipidemia: Continue home statin regimen. #7. Morbid Obesity: Weight loss and lifestyle changes encouraged. #8. GERD: We will continue patient on PPI. #9. DVT prophylaxis: SCDs, Lovenox. #10. CODE status: Full Code status, amenable to airvo and BIPAP. Amenable to barcitinib. Charges/Coding Visit Charges Inpatient E&M: 22602 Subs Hosp L3
[2021-01-18 07:27] LABS: Absolute Lymphocyte Count 1.05 X10^3/uL (0.83-4.51); Absolute Neutrophil Count 3.9 X10^3/uL (2.0-7.7); Basophil# 0.01 X10^3/uL; Basophil% 0.2 % (0-1); Hematocrit 45.6 % (40-54); Hemoglobin 15.6 g/dL (13.0-16.5); Lymphocyte # 1.05 X10^3/ul (0.83-4.51); Lymphocyte % 19.3 % (19-41); Mean Corp Hgb Conc 34.2 g/dL (32-36); Mean Corpuscular Hgb 31.3 pg (27.0-32.0); Mean Corpuscular Volume 91.4 fL (80-94); Mean Platelet Vol. 9.7 fl (6.2-12.0); Monocyte# 0.43 X10^3/uL; Monocyte% 7.9 % (0-10); NRBC Flagged by Analyzer 0 % (0-5); Neutrophil % 71.9 % (47-70); Platelet Count 234 K/mm3 (150-450); RBC Distribution Width CV 12.9 % (11.6-14.6); RBC Distribution Width SD 43.1 fl (35.1-43.9); Red Blood Count 4.99 M/mm3 (4.6-6.2); White Blood Count 5.4 K/mm3 (4.4-11.0)
[2021-01-18 07:54] LABS: ALB/GLOB Ratio 0.6 RATIO (0.9-2.4); AST(SGOT) 69 U/L (15-37); Alanine Aminotransfer ALT/SGPT 73 U/L (16-61); Albumin, Serum 2.6 g/dL (3.2-5.0); Alkaline Phosphatase 54 U/L (45-117); Anion Gap 8 (5-15); BUN 21 mg/dL (7-18); Calcium,Total 8.1 mg/dL (8.5-10.1); Chloride 100 mmol/L (98-107); Creatinine, Serum 1.05 mg/dL (0.70-1.30); EST Glomerular Filtration Rate 80 mL/min (>60); Est Glom Filt Rate - Afr Amer 96 mL/min (>60); Estimated Creatinine Clearance 87.87 ml/min; Globulin 4.6 g/dL (2.2-4.2); Glucose 131 mg/dL (74-106); Protein, Total 7.2 g/dL (6.4-8.2); Sodium Level 133 mmol/L (136-145)
[2021-01-18] MEDS: Omega-3 Acid Ethyl Esters 1 GM Capsule 2 GM PO (09:40)
[2021-01-18] MEDS: guaiFENesin 1,200 MG Tablet 1200 MG PO ×2 (09:40→22:19)
[2021-01-18] MEDS: Lisinopril 20 MG Tablet PO (09:40)
[2021-01-18] MEDS: Enoxaparin 40 MG/0.4 ML Syringe SC ×2 (09:41→22:18)
[2021-01-18] MEDS: Pantoprazole Sodium 40 MG Tablet PO (09:41)
[2021-01-18] MEDS: Insulin Lispro 100 UNIT/ML INSULN.PEN SC ×3 (11:24→22:29)
[2021-01-18 11:30] LABS: Bedside Glucose 235 mg/dL (70-110)
[2021-01-18 16:20] LABS: Bedside Glucose 172 mg/dL (70-110)
[2021-01-18] MEDS: Atorvastatin Calcium 20 MG Tablet PO (22:19)
[2021-01-18 23:01] LABS: Bedside Glucose 189 mg/dL (70-110)
[2021-01-19] VITALS (13 sets, daily range): BP systolic 119–155; BP diastolic 63–94; PULSE 77–88; RESP 18–32; TEMP 36.8–37.2; O2SAT 92–98
[2021-01-19] MEDS: Insulin Lispro 100 UNIT/ML INSULN.PEN SC ×4 (06:00→22:41)
[2021-01-19 06:21] LABS: Bedside Glucose 163 mg/dL (70-110)
--- NOTE | 2021-01-19 06:31 | PN.HOSP_ITS ---
Subjective Subjective Patient overnight with significantly worsened respiratory status with significant ongoing increased respiratory rate and up to 15 L elevation with planned air Vo transition exam. Patient notes feeling significantly fatigued and weak. Discussed plan of care which included airvo initiation, infectious disease consultation with baricitinib initiation. Discussed that if patient necessitated BiPAP transition would plan transition to the ICU and lead performance support analyst consultation which she is amenable. Patient denies nausea, emesis, abdominal pain, chest pain. Objective Data Objective Data Vital Signs: Vital Signs Temp Pulse Resp BP Pulse Ox 99 F 85 22 H 146/79 H 93 01/19/21 06:08 01/19/21 06:08 01/19/21 06:08 01/19/21 06:08 01/19/21 06:08 Oxygen Flow Rate (L/min) 15 Oxygen Delivery Method Nasal Cannula Weight: 288 lb 9.361 oz Body Mass Index (BMI) 41.3 Intake & Output: Intake and Output for Last 24 Hours 01/17/21 01/18/21 01/19/21 23:59 23:59 23:59 Intake Total 1030 / 1030 1370 / 1370 250 / 250 Output Total 2100 / 2100 675 / 675 400 / 400 Balance -1070 / -1070 695 / 695 -150 / -150 Lab / Micro Data Result Diagrams: 01/19/21 07:10 01/19/21 07:10 Labs: Laboratory Results - last 24 hr 01/18/21 07:00: WBC 5.4, RBC 4.99, Hgb 15.6, Hct 45.6, MCV 91.4, MCH 31.3, MCHC 34.2, RDW Std Deviation 43.1, RDW Coeff of [place] 12.9, Plt Count 234, MPV 9.7, Immature Gran % (Auto) 0.700, Neut % (Auto) 71.9 H, Lymph % (Auto) 19.3, [place] % (Auto) 7.9, Eos % (Auto) 0.0, Baso % (Auto) 0.2, Absolute Neuts (auto) 3.9, Absolute Lymphs (auto) 1.05, Nucleated RBC % 0 01/18/21 07:00: Sodium 133 L, Potassium 4.0, Chloride 100, Carbon Dioxide 25.0, Anion Gap 8, BUN 21 H, Creatinine 1.05, Estim Creat Clear Calc 87.87, Est GFR ( MDRD) Af Amer 96, Est GFR (MDRD) Non-Af 80, BUN/Creatinine Ratio 20.0, Glucose 131 H, Calcium 8.1 L, Total Bilirubin 0.50, AST 69 H, ALT 73 H, Alkaline Phosphatase 54, Total Protein 7.2, Albumin 2.6 L, Globulin 4.6 H, Albumin/Globulin Ratio 0.6 L 01/18/21 11:23: POC Glucose 235 H 01/18/21 16:04: POC Glucose 172 H 01/18/21 22:28: POC Glucose 189 H 01/19/21 05:59: POC Glucose 163 H Micro: Microbiology 01/15/21 23:20 Sputum, Expectorated/Coughed Gram Stain - Final 01/15/21 23:20 Sputum, Expectorated/Coughed Respiratory Culture - Preliminary Staphylococcus aureus 01/14/21 19:30 Blood Culture (Wb) - Anticubital Right Blood Culture - Preliminary No growth in 48 hours. 01/14/21 19:26 Blood Culture (Wb) - Anticubital Left Blood Culture - Preliminary No growth in 48 hours. 01/15/21 15:30 Mucosa - Nasopharyngeal Respiratory Panel (PCR) - Final 01/15/21 15:55 Interface Orders Streptococcus pneumoniae Antigen (M - Final 01/15/21 15:55 Urine, Clean Catch Legionella Antigen - Final 01/14/21 19:30 Mucosa - Nose Influenza Types A,B Direct FA (MISSAEL) - Final 01/14/21 19:30 Nasal Secretion SARS-CoV-2 Antigen (Rapid) - Final SARS-CoV-2 (COVID 19) Physical Exam Narrative Physical Examination: General: Awake, alert, oriented x 3 and cooperative, laying in the PCU bed, more ill-appearing, fatigued, increased work of breathing and accessory muscle usage increase and stay prior, currently maxed on nasal cannula with air Vo transition currently being arranged. Skin: Normal color, normal turgor, no icterus, no cyanosis. HEENT: AT/NC, EOMI, PERRLA, dry MM. Lungs: Diffusely diminished, greater bases, worsening status with increased respiratory rate and accessory muscle usage, evidence of respiratory distress, no obvious rales, rhonchi or wheezing. Heart: Regular rate and rhythm; no gallop, rub audible. Abdomen: Soft, morbidly obese, NTTP, no obvious distention but habitus makes exam difficult, normalized BS. Extremities: No cyanosis, clubbing, or edema. Neurological: Patient awake, alert, oriented as noted, cognitive function intact; pupils equally reactive to light and accommodation, cranial nerves II- XII grossly normal, moving all 4 extremities, no focal deficits, strength worsening, severely globally decreased secondary to acute presentation. Psychiatric: Affect appears more fatigued, ill-appearing, respiratory distress evident, no acute evidence of depressive or anxiety feelings. Assessment & Plan Assessment/Plan (1) Pneumonia due to COVID-19 virus: (2) Acute hypoxemic respiratory failure: PLAN: The patient is a 50 y/o M w/ PMHx: Diabetes mellitus type II, Morbid Obesity, HTN, HLD, GERD who presents to the [facility] ED on 01/14/21 with history of 2-day history of increasing fatigue, malaise with symptoms starting on Thanksgiving with decreased oral intake, onset of chills, body aches, dyspnea, dry cough prompting eventual ED presentation with unvaccinated COVID status. #1. Acute Hypoxic Respiratory Failure secondary to Acute Bilateral Pneumonia secondary to Acute Viral Syndrome, COVID-19 with unvaccinated COVID status: Admitted to PCU, maintained on COVID precautions until 01/31/21, maintained on oxygen with wean as tolerated to room air, given possible SVT following albuterol treatment discontinued, HOB, IS parameters w/ pending sputum cultures, negative urine antigens, respiratory viral panel still requested, inflammatory Covid panel obtained, continued supportive care including q 2 hour turning including prone given no prone bed availability and judicious hydration, closely monitor for worsening status for ARDS and multiorgan failure, patient initiated and continued on IV decadron x 10 doses, given presentation patient initiated and continued on IV remdesivir but defer to discretion of Infectious disease. 01/19/2021 evaluation with significantly worsened appearance, will transition to air Vo now and request ID consultation for initiation of baricitinib. Patient is high risk for necessity transition likely to the ICU with BiPAP and was discussed with lead performance support analyst with expected likely consultation required in the next 24 to 48 hours. #2. Elevated LFTs: Admission AST/ALT 56/93, secondary to likely #1, will continue to treat as noted above, 01/19/2021 AST/ALT 87/89, mildly increased, continue to trend. #3. Potential cardiac arrhythmia, SVT: Patient with appearance on monitor SVT following aerosol treatments, discontinued these treatments, continue to closely monitor, no events since. #5. Hypertension: Continue home regimen including lisinopril with adjustments as needed given elevated BPs, PRN hydralazine. #6. Hyperlipidemia: Continue home statin regimen. #7. Morbid Obesity: Weight loss and lifestyle changes encouraged. #8. GERD: We will continue patient on PPI. #9. DVT prophylaxis: SCDs, Lovenox. #10. CODE status: Full Code status. Patient as noted above being transitioned to air Vo, amenable still to BiPAP and intubation. Baricitinib being initiated to which patient already gave agreement. Charges/Coding Visit Charges Inpatient E&M: 30526 [facility] Hosp L3
[2021-01-19 07:36] LABS: Absolute Lymphocyte Count 0.93 X10^3/uL (0.83-4.51); Absolute Neutrophil Count 6.2 X10^3/uL (2.0-7.7); Basophil# 0.02 X10^3/uL; Basophil% 0.3 % (0-1); Hematocrit 45.5 % (40-54); Hemoglobin 15.6 g/dL (13.0-16.5); Lymphocyte # 0.93 X10^3/ul (0.83-4.51); Lymphocyte % 12.2 % (19-41); Mean Corp Hgb Conc 34.3 g/dL (32-36); Mean Corpuscular Hgb 30.6 pg (27.0-32.0); Mean Corpuscular Volume 89.4 fL (80-94); Mean Platelet Vol. 9.3 fl (6.2-12.0); Monocyte# 0.48 X10^3/uL; Monocyte% 6.3 % (0-10); NRBC Flagged by Analyzer 0 % (0-5); Neutrophil # 6.18 X10^3/uL (2.7-7.7); Neutrophil % 80.7 % (47-70); Platelet Count 312 K/mm3 (150-450); RBC Distribution Width CV 12.7 % (11.6-14.6); Red Blood Count 5.09 M/mm3 (4.6-6.2); White Blood Count 7.7 K/mm3 (4.4-11.0)
[2021-01-19 08:05] LABS: ALB/GLOB Ratio 0.5 RATIO (0.9-2.4); AST(SGOT) 87 U/L (15-37); Alanine Aminotransfer ALT/SGPT 89 U/L (16-61); Albumin, Serum 2.5 g/dL (3.2-5.0); Alkaline Phosphatase 69 U/L (45-117); Anion Gap 7 (5-15); BUN 17 mg/dL (7-18); BUN/Creat Ratio 24.4 RATIO (10-20); Calcium,Total 8.2 mg/dL (8.5-10.1); Chloride 102 mmol/L (98-107); EST Glomerular Filtration Rate 128 mL/min (>60); Est Glom Filt Rate - Afr Amer 155 mL/min (>60); Estimated Creatinine Clearance 131.81 ml/min; Globulin 4.8 g/dL (2.2-4.2); Glucose 147 mg/dL (74-106); Protein, Total 7.3 g/dL (6.4-8.2); Sodium Level 132 mmol/L (136-145)
[2021-01-19] MEDS: Lisinopril 20 MG Tablet PO (08:11)
[2021-01-19] MEDS: Pantoprazole Sodium 40 MG Tablet PO (08:11)
[2021-01-19] MEDS: Enoxaparin 40 MG/0.4 ML Syringe SC ×2 (08:11→22:18)
[2021-01-19] MEDS: guaiFENesin 1,200 MG Tablet 1200 MG PO ×2 (08:11→22:17)
[2021-01-19] MEDS: Ibuprofen 600 MG Tablet PO (08:12)
[2021-01-19] MEDS: Omega-3 Acid Ethyl Esters 1 GM Capsule 2 GM PO (08:12)
--- NOTE | 2021-01-19 11:03 | CON.PCM.ID_ITS ---
HPI Consult Data Date of Consult: 01/19/21 HPI Narrative HPI Narrative: BERTHA DOWLING, is a 50 M who presents increasing shortness of breath since morning. Patient was diagnosed with Covid 19 on presentation in this hospital on January 14. Patient states that he developed cough and chest congestion on . Patient does have a history of diabetes mellitus and underlying obesity. Chest x-ray from admission on 14 January shows bilateral infiltrates. Patient currently on high flow nasal cannula. Patient is unvaccinated against COVID-19. Patient is also positive for COVID-19 at home. [facility] Medical History (Updated 01/14/21 @ 23:[address] Soto Ramos MD) Diabetes type 2, controlled Hypertension Home Medications glimepiride [Amaryl] 4 mg PO DAILY 01/14/21 [History Last Taken Unknown] lansoprazole [Prevacid] 30 mg PO DAILY 01/14/21 [History Last Taken Unknown] lisinopril [Prinivil] 20 mg PO DAILY 01/14/21 [History Last Taken Unknown] metformin [Glucophage] 500 mg PO BID 01/14/21 [History Last Taken Unknown] omega-3 fatty acids [[place] 3 Fish Oil Concentrate] 2,000 mg PO DAILY 01/14/21 [History Last Taken Unknown] simvastatin [Zocor] 40 mg PO DAILY 01/14/21 [History Last Taken Unknown] Allergy/AdvReac Type Severity Reaction Status Date / Time No Known Allergies Allergy Verified 01/14/21 18:55 Family History Other Heart disease Surgical History History of appendectomy Social History Smoking Status: Never smoker substance use type: does not use Lab / Micro Data Result Diagrams: 01/19/21 07:10 01/19/21 07:10 Labs: Laboratory Results - last 24 hr 01/18/21 11:23: POC Glucose 235 H 01/18/21 16:04: POC Glucose 172 H 01/18/21 22:28: POC Glucose 189 H 01/19/21 05:59: POC Glucose 163 H 01/19/21 07:10: WBC 7.7, RBC 5.09, Hgb 15.6, Hct 45.5, MCV 89.4, MCH 30.6, MCHC 34.3, RDW Std Deviation 42.0, RDW Coeff of Lucretia 12.7, Plt Count 312, MPV 9.3, I mmature Gran % (Auto) 0.500, Neut % (Auto) 80.7 H, Lymph % (Auto) 12.2 L, [place] % (Auto) 6.3, Eos % (Auto) 0.0, Baso % (Auto) 0.3, Absolute Neuts (auto) 6.2, Absolute Lymphs (auto) 0.93, Nucleated RBC % 0 01/19/21 07:10: Sodium 132 L, Potassium 4.0, Chloride 102, Carbon Dioxide 23.0, Anion Gap 7, BUN 17, Creatinine 0.70, Estim Creat Clear Calc 131.81, Est GFR (MDRD) Af Amer 155, Est GFR (MDRD) Non-Af 128, BUN/Creatinine Ratio 24.4 H, Glucose 147 H, Calcium 8.2 L, Total Bilirubin 0.60, AST 87 H, ALT 89 H, Alkaline Phosphatase 69, Total Protein 7.3, Albumin 2.5 L, Globulin 4.8 H, Albumin/Globulin Ratio 0.5 L Micro: Microbiology 01/15/21 23:20 Sputum, Expectorated/Coughed Gram Stain - Final 01/15/21 23:20 Sputum, Expectorated/Coughed Respiratory Culture - Final Staphylococcus aureus Procedure Criteria Elective Risks - COVID COVID Risk Discussion: COVID-19 pneumonia with significant hypoxemia. Will initiate dexamethasone 6 mg IV daily with the 1st dose STAT; we will also initiate barcitnib 4 mg daily. Patient is agreeable to the use of barcitinib. Continue DVT prophylaxis.
[2021-01-19] MEDS: dexAMETHasone 10 MG/ML Vial 6 MG IV (12:01)
[2021-01-19] MEDS: 0.9% Saline Lock 10 ML Syringe IV (12:02)
[2021-01-19 12:10] LABS: Bedside Glucose 154 mg/dL (70-110)
[2021-01-19] MEDS: Acetaminophen 325 MG Tablet 650 MG PO ×2 (16:04→22:18)
[2021-01-19 16:40] LABS: Bedside Glucose 203 mg/dL (70-110)
[2021-01-19] MEDS: MELATONIN 3 MG TABLET PO (22:17)
[2021-01-19] MEDS: Atorvastatin Calcium 20 MG Tablet PO (22:18)
[2021-01-19 22:55] LABS: Bedside Glucose 226 mg/dL (70-110)
[2021-01-20] VITALS (21 sets, daily range): BP systolic 115–135; BP diastolic 49–80; PULSE 70–85; RESP 12–30; TEMP 36.6–37.2; O2SAT 91–96
--- NOTE | 2021-01-20 06:28 | PN.HOSP_ITS ---
Subjective Subjective Patient overnight with worsening respiratory status with an transition to BiPAP, currently tolerating transition back to air Vo this morning. Patient appears more fatigued and weak. Did discuss case with pulmonary b2b sales consultant Dr. Guzman this morning in case patient does worsen and require continuous BiPAP with ICU transition. Patient denies fevers, chills, nausea, emesis, abdominal pain, chest pain. Objective Data Objective Data Vital Signs: Vital Signs Temp Pulse Resp BP Pulse Ox 98.8 F 85 28 H 155/94 H 91 01/19/21 22:00 01/20/21 04:53 01/20/21 04:53 01/19/21 22:00 01/20/21 04:53 Oxygen Flow Rate (L/min) 50 Oxygen Delivery Method Airvo Weight: 288 lb 9.361 oz Body Mass Index (BMI) 41.3 Intake & Output: Intake and Output for Last 24 Hours 01/18/21 01/19/21 01/20/21 23:59 23:59 23:59 Intake Total 1370 / 1370 970 / 970 Output Total 675 / 675 725 / 725 Balance 695 / 695 245 / 245 Lab / Micro Data Result Diagrams: 01/20/21 07:00 01/20/21 07:00 Labs: Laboratory Results - last 24 hr 01/19/21 07:10: WBC 7.7, RBC 5.09, Hgb 15.6, Hct 45.5, MCV 89.4, MCH 30.6, MCHC 34.3, RDW Std Deviation 42.0, RDW Coeff of Lucretia 12.7, Plt Count 312, MPV 9.3, Immature Gran % (Auto) 0.500, Neut % (Auto) 80.7 H, Lymph % (Auto) 12.2 L, [place] % (Auto) 6.3, Eos % (Auto) 0.0, Baso % (Auto) 0.3, Absolute Neuts (auto) 6.2, Absolute Lymphs (auto) 0.93, Nucleated RBC % 0 01/19/21 07:10: Sodium 132 L, Potassium 4.0, Chloride 102, Carbon Dioxide 23.0, Anion Gap 7, BUN 17, Creatinine 0.70, Estim Creat Clear Calc 131.81, Est GFR (MDRD) Af Amer 155, Est GFR (MDRD) Non-Af 128, BUN/Creatinine Ratio 24.4 H, Glucose 147 H, Calcium 8.2 L, Total Bilirubin 0.60, AST 87 H, ALT 89 H, Alkaline Phosphatase 69, Total Protein 7.3, Albumin 2.5 L, Globulin 4.8 H, Albumin/Globulin Ratio 0.5 L 01/19/21 12:00: POC Glucose 154 H 01/19/21 16:04: POC Glucose 203 H 01/19/21 21:54: POC Glucose 226 H Micro: Microbiology 01/15/21 23:20 Sputum, Expectorated/Coughed Gram Stain - Final 01/15/21 23:20 Sputum, Expectorated/Coughed Respiratory Culture - Final Staphylococcus aureus 01/14/21 19:30 Blood Culture (Wb) - Anticubital Right Blood Culture - Preliminary No growth in 48 hours. 01/14/21 19:26 Blood Culture (Wb) - Anticubital Left Blood Culture - Preliminary No growth in 48 hours. 01/15/21 15:30 Mucosa - Nasopharyngeal Respiratory Panel (PCR) - Final 01/15/21 15:55 Interface Orders Streptococcus pneumoniae Antigen (M - Final 01/15/21 15:55 Urine, Clean Catch Legionella Antigen - Final 01/14/21 19:30 Mucosa - Nose Influenza Types A,B Direct FA (MISSAEL) - Final 01/14/21 19:30 Nasal Secretion SARS-CoV-2 Antigen (Rapid) - Final SARS-CoV-2 (COVID 19) Physical Exam Narrative Physical Examination: General: Awake, alert, oriented x 3 and cooperative, seated upright in the PCU bed, fatigued and ill-appearing, currently transitioned back to air Vo, work of breathing is mildly lessened and very prior but has recently just come off of BiPAP. Skin: Normal color, normal turgor, no icterus, no cyanosis. HEENT: AT/NC, EOMI, PERRLA, dry MM, air Vo back on. Lungs: Diffusely diminished, greater bases, recent transition off BiPAP to air Vo, currently respiratory rate and accessory muscle usage is lessened, no obvious rales, rhonchi or wheezing. Heart: Regular rate and rhythm; no gallop, rub audible. Abdomen: Soft, morbidly obese, NTTP, no obvious distention but habitus makes exam difficult, normalized BS. Extremities: No cyanosis, clubbing, or edema. Neurological: Patient awake, alert, oriented as noted, cognitive function intact; pupils equally reactive to light and accommodation, cranial nerves II- XII grossly normal, moving all 4 extremities, no focal deficits, strength worsening, severely globally decreased secondary to acute presentation. Psychiatric: Affect appears more fatigued, ill-appearing, no acute evidence of depressive or anxiety feelings. Assessment & Plan Assessment/Plan (1) Pneumonia due to COVID-19 virus: (2) Acute hypoxemic respiratory failure: PLAN: The patient is a 50 y/o M w/ PMHx: Diabetes mellitus type II, Morbid Obesity, HTN, HLD, GERD who presents to the [facility] ED on 01/14/21 with history of 2-day history of increasing fatigue, malaise with symptoms starting on Thanksgiving with decreased oral intake, onset of chills, body aches, dyspnea, dry cough prompting eventual ED presentation with unvaccinated COVID status. #1. Acute Hypoxic Respiratory Failure secondary to Acute Bilateral Pneumonia secondary to Acute Viral Syndrome, COVID-19 with unvaccinated COVID status: Admitted to PCU, maintained on COVID precautions until 01/31/21, maintained on oxygen with wean as tolerated to room air, given possible SVT following albuterol treatment discontinued, HOB, IS parameters w/ pending sputum cultures, negative urine antigens, respiratory viral panel still requested, inflammatory Covid panel obtained, continued supportive care including q 2 hour turning including prone given no prone bed availability and judicious hydration, closely monitor for worsening status for ARDS and multiorgan failure, patient initiated and continued on IV decadron x 10 doses, given presentation patient initiated and continued on IV remdesivir but defer to discretion of Infectious disease. 01/19/2021 evaluation with significantly worsened appearance, transitioned to air Vo w/ infectious disease consultation, following with baricitinib ongoing. 01/20/2021 given overnight BiPAP needs pulmonary/b2b sales consultant consulted and patient continues to decline further with ICU transition necessity. #2. Elevated LFTs: Admission AST/ALT 56/93, secondary to likely #1, will continue to treat as noted above, 01/19/2021 AST/ALT 87/89--> 01/20/2021 AST/ALT 91/101, continues to mildly increased. We will continue to trend CMP. #3. Potential cardiac arrhythmia, SVT: Patient with appearance on monitor SVT f ollowing aerosol treatments, discontinued these treatments, continue to closely monitor, no events since. #5. Hypertension: Continue home regimen including lisinopril, transient elevated BPs, improved now 01/20/21, PRN hydralazine. #6. Hyperlipidemia: Continue home statin regimen. #7. Morbid Obesity: Weight loss and lifestyle changes encouraged. #8. GERD: We will continue patient on PPI. #9. DVT prophylaxis: SCDs, Lovenox. #10. CODE status: Full Code status. Amenable to airvo and BIPAP as well as intubation. Charges/Coding Visit Charges Inpatient E&M: 07496 Subs Hosp L2
[2021-01-20] MEDS: Acetaminophen 325 MG Tablet 650 MG PO ×2 (06:47→13:06)
[2021-01-20 07:06] LABS: Bedside Glucose 138 mg/dL (70-110)
--- NOTE | 2021-01-20 07:18 | EX.PCM.CONCC ---
Assessment & Plan Assessment/Plan (1) Pneumonia due to COVID-19 virus: (2) Acute hypoxemic respiratory failure: PLAN: RECOMMENDATIONS: 1. Continue heated high flow oxygen and wean FiO2 for saturations greater than 90%. 2. Continue Decadron and baricitinib to complete treatment courses. 3. Continue Lovenox twice daily as ordered. 4. Awake prone positioning was encouraged. 5. Continue empiric BiPAP therapy nightly. 6. Start antimicrobials to address MSSA isolated from sputum. 7. Encourage incentive spirometer use and mobilize patient as tolerated. IMPRESSIONS: 1. Acute hypoxemic respiratory failure secondary to COVID-19 pneumonia The patient presented to the hospital with progressive respiratory symptoms in the setting of COVID-19 pneumonia. He was initially treated with remdesivir, which he completed. In addition, the patient has been maintained on Decadron and baricitinib, following evaluation by infectious diseases. His respiratory status remains quite tenuous. The patient will be continued on heated high flow oxygen as tolerated to maintain saturations at or above 90%. Awake prone positioning was encouraged. IV diuretic therapy can be utilized as needed to maintain euvolemic state. In addition to the aforementioned, the patient's sputum culture is currently growing MSSA. Therefore, I will initiate him on appropriate antimicrobials as well. Continue Lovenox twice daily as ordered. 2. Morbid obesity/hypertension/hyperlipidemia/GERD Complicates care, management, recovery and prognosis. Continue home medications as indicated. This note was generated with [employer] dictation software. It may contain incorrect words, spelling, and punctuation that were not noted in checking the note before signing. HPI Consult Data Date of Consult: 01/20/21 HPI Narrative Reason for Consultation: Acute hypoxemic respiratory failure secondary to COVID-19 pneumonia HPI Narrative: The patient is a 50-year-old male, with a history as outlined below, who presented to the emergency department on January 14 with shortness of breath, fatigue, malaise, body aches and cough. The patient is unvaccinated against coronavirus. He does report that his has been ill with Covid as well. However, she is vaccinated. On presentation to the emergency department, the patient was noted to be febrile and tachypneic. D-dimer was only noted to be 0.50. Chemistry profile was notable for a sodium of 131, bicarbonate of 19 and creatinine of 1.0. AST and ALT were mildly elevated. CRP was elevated to 80.4. CTA chest showed no evidence for PE. However, diffuse bilateral groundglass changes were noted. The patient was initially treated with remdesivir and Decadron. Following evaluation by infectious diseases, the patient was also started on baricitinib. His oxygenation status remains quite tenuous. He is currently on heated high flow with an FiO2 requirement of 75%. The patient is currently documented to be overall net +2.3 L for the hospitalization. He is currently growing MSSA on sputum culture. [facility] Medical History (Updated 01/14/21 @ 23:[address] Soto Ramos MD) Diabetes type 2, controlled Hypertension Home Medications glimepiride [Amaryl] 4 mg PO DAILY 01/14/21 [History Last Taken Unknown] lansoprazole [Prevacid] 30 mg PO DAILY 01/14/21 [History Last Taken Unknown] lisinopril [Prinivil] 20 mg PO DAILY 01/14/21 [History Last Taken Unknown] metformin [Glucophage] 500 mg PO BID 01/14/21 [History Last Taken Unknown] omega-3 fatty acids [[place] 3 Fish Oil Concentrate] 2,000 mg PO DAILY 01/14/21 [History Last Taken Unknown] simvastatin [Zocor] 40 mg PO DAILY 01/14/21 [History Last Taken Unknown] Allergy/AdvReac Type Severity Reaction Status Date / Time No Known Allergies Allergy Verified 01/14/21 18:55 Family History Other Heart disease Surgical History History of appendectomy Social History Smoking Status: Never smoker substance use type: does not use ROS Constitutional Constitutional: Reports body ache(s), chills, fatigue, fever(s) and malaise Eyes Eyes: Denies blurry vision or change in vision ENT HEENT: Reports headache(s); Denies dysphagia or epistaxis Cardiovascular Cardiovascular: Reports dyspnea; Denies chest pain or dizziness Respiratory/Chest Respiratory/Chest: Reports cough and dyspnea Gastrointestinal Gastrointestinal: Denies abdominal pain, diarrhea, nausea or vomiting Genitourinary Genitourinary: Denies difficulty urinating Musculoskeletal Musculoskeletal: Denies arthralgias, back pain or joint pain Integumentary Integumentary: Denies lesions, rash or skin ulcer Neurologic Neurologic: Denies abnormal gait or abnormal speech Psychiatric Psychiatric: Denies anxiety or depression Endocrine Endocrinology: Reports fatigue Hematologic/Lymphatic Hematologic/Lymphatic: Denies easy bleeding or easy bruising Physical Exam Const alert Constitutional Narrative: Sitting in bedside recliner. General Appearance: cooperative and ill appearing Nutritional Appearance: morbidly obese HEENT normocephalic, head/scalp atraumatic and moist oral mucous membranes Eyes PERRL, EOMs intact bilaterally and conjunctivae normal Neck supple General: trachea midline Chest inspection of chest normal Resp Effort and Inspection: able to speak in complete sentences and tachypneic Auscultation: diminished lung sounds Cardio regular rate and regular rhythm GI normal to inspection, nondistended, normoactive bowel sounds Extremity no clubbing, cyanosis or edema Skin no rashes or lesions noted Neuro CN's II-XII intact bilaterally, moves all extremities and no focal motor deficits Psych cooperative and affect normal Lab / Micro Data Result Diagrams: 01/20/21 07:00 01/20/21 07:00 Labs: Laboratory Results - last 24 hr 01/19/21 07:10: WBC 7.7, RBC 5.09, Hgb 15.6, Hct 45.5, MCV 89.4, MCH 30.6, MCHC 34.3, RDW Std Deviation 42.0, RDW Coeff of Lucretia 12.7, Plt Count 312, MPV 9.3, Immature Gran % (Auto) 0.500, Neut % (Auto) 80.7 H, Lymph % (Auto) 12.2 L, [place] % (Auto) 6.3, Eos % (Auto) 0.0, Baso % (Auto) 0.3, Absolute Neuts (auto) 6.2, Absolute Lymphs (auto) 0.93, Nucleated RBC % 0 01/19/21 07:10: Sodium 132 L, Potassium 4.0, Chloride 102, Carbon Dioxide 23.0, Anion Gap 7, BUN 17, Creatinine 0.70, Estim Creat Clear Calc 131.81, Est GFR (MDRD) Af Amer 155, Est GFR (MDRD) Non-Af 128, BUN/Creatinine Ratio 24.4 H, Glucose 147 H, Calcium 8.2 L, Total Bilirubin 0.60, AST 87 H, ALT 89 H, Alkaline Phosphatase 69, Total Protein 7.3, Albumin 2.5 L, Globulin 4.8 H, Albumin/Globulin Ratio 0.5 L 01/19/21 12:00: POC Glucose 154 H 01/19/21 16:04: POC Glucose 203 H 01/19/21 21:54: POC Glucose 226 H 01/20/21 06:42: POC Glucose 138 H Micro: Microbiology 01/15/21 23:20 Sputum, Expectorated/Coughed Gram Stain - Final 01/15/21 23:20 Sputum, Expectorated/Coughed Respiratory Culture - Final Staphylococcus aureus Charges/Coding Visit Charges Inpatient E&M: 70462 Init Hosp L3
[2021-01-20 07:28] LABS: Absolute Lymphocyte Count 1.04 X10^3/uL (0.83-4.51); Absolute Neutrophil Count 7.1 X10^3/uL (2.0-7.7); Basophil# 0.02 X10^3/uL; Basophil% 0.2 % (0-1); Hemoglobin 15.4 g/dL (13.0-16.5); Lymphocyte # 1.04 X10^3/ul (0.83-4.51); Lymphocyte % 11.8 % (19-41); Mean Corp Hgb Conc 34.2 g/dL (32-36); Mean Corpuscular Hgb 30.9 pg (27.0-32.0); Mean Corpuscular Volume 90.2 fL (80-94); Mean Platelet Vol. 9.4 fl (6.2-12.0); Monocyte# 0.55 X10^3/uL; Monocyte% 6.2 % (0-10); NRBC Flagged by Analyzer 0 % (0-5); Neutrophil # 7.05 X10^3/uL (2.7-7.7); Neutrophil % 80.1 % (47-70); Platelet Count 413 K/mm3 (150-450); RBC Distribution Width CV 12.5 % (11.6-14.6); RBC Distribution Width SD 41.4 fl (35.1-43.9); Red Blood Count 4.99 M/mm3 (4.6-6.2); White Blood Count 8.8 K/mm3 (4.4-11.0)
[2021-01-20 08:12] LABS: ALB/GLOB Ratio 0.5 RATIO (0.9-2.4); AST(SGOT) 91 U/L (15-37); Alanine Aminotransfer ALT/SGPT 101 U/L (16-61); Albumin, Serum 2.4 g/dL (3.2-5.0); Alkaline Phosphatase 74 U/L (45-117); Anion Gap 7 (5-15); BUN 14 mg/dL (7-18); BUN/Creat Ratio 16.6 RATIO (10-20); Calcium,Total 8.4 mg/dL (8.5-10.1); Chloride 102 mmol/L (98-107); Creatinine, Serum 0.84 mg/dL (0.70-1.30); EST Glomerular Filtration Rate 102 mL/min (>60); Est Glom Filt Rate - Afr Amer 124 mL/min (>60); Estimated Creatinine Clearance 109.84 ml/min; Glucose 140 mg/dL (74-106); Potassium 4.4 mmol/L (3.5-5.1); Protein, Total 7.4 g/dL (6.4-8.2); Sodium Level 135 mmol/L (136-145)
[2021-01-20] MEDS: Omega-3 Acid Ethyl Esters 1 GM Capsule 2 GM PO (09:22)
[2021-01-20] MEDS: Lisinopril 20 MG Tablet PO (09:23)
[2021-01-20] MEDS: Enoxaparin 40 MG/0.4 ML Syringe SC ×2 (09:23→22:03)
[2021-01-20] MEDS: 0.9% Saline Lock 10 ML Syringe IV ×3 (09:23→16:51)
[2021-01-20] MEDS: dexAMETHasone 10 MG/ML Vial 6 MG IV (09:23)
[2021-01-20] MEDS: Pantoprazole Sodium 40 MG Tablet PO (09:23)
[2021-01-20] MEDS: guaiFENesin 1,200 MG Tablet 1200 MG PO ×2 (09:23→22:03)
[2021-01-20] MEDS: Insulin Lispro 100 UNIT/ML INSULN.PEN SC ×3 (11:08→22:08)
[2021-01-20 11:21] LABS: Bedside Glucose 187 mg/dL (70-110)
[2021-01-20] MEDS: Furosemide 40 MG/4 ML Vial IV (14:54)
[2021-01-20] MEDS: levoFLOXacin IV 750 MG/150 ML BAG 100 MG IV (14:54)
[2021-01-20 16:56] LABS: Bedside Glucose 238 mg/dL (70-110)
[2021-01-20] MEDS: Ibuprofen 600 MG Tablet PO (18:47)
[2021-01-20] MEDS: Atorvastatin Calcium 20 MG Tablet PO (22:03)
[2021-01-20 22:20] LABS: Bedside Glucose 169 mg/dL (70-110)
[2021-01-21] VITALS (15 sets, daily range): BP systolic 104–137; BP diastolic 58–75; PULSE 67–92; RESP 12–31; TEMP 36.6–37.1; O2SAT 92–98
[2021-01-21] MEDS: Acetaminophen 325 MG Tablet 650 MG PO ×3 (06:45→21:39)
[2021-01-21 07:00] LABS: Bedside Glucose 137 mg/dL (70-110)
[2021-01-21 07:20] LABS: Absolute Lymphocyte Count 1.37 X10^3/uL (0.83-4.51); Absolute Neutrophil Count 10.9 X10^3/uL (2.0-7.7); Basophil# 0.04 X10^3/uL; Basophil% 0.3 % (0-1); Hematocrit 45.7 % (40-54); Hemoglobin 15.4 g/dL (13.0-16.5); Lymphocyte # 1.37 X10^3/ul (0.83-4.51); Lymphocyte % 10.3 % (19-41); Mean Corp Hgb Conc 33.7 g/dL (32-36); Mean Corpuscular Hgb 30.4 pg (27.0-32.0); Mean Corpuscular Volume 90.3 fL (80-94); Mean Platelet Vol. 9.4 fl (6.2-12.0); Monocyte# 0.69 X10^3/uL; Monocyte% 5.2 % (0-10); NRBC Flagged by Analyzer 0 % (0-5); Neutrophil # 10.93 X10^3/uL (2.7-7.7); Neutrophil % 82.4 % (47-70); Platelet Count 510 K/mm3 (150-450); RBC Distribution Width CV 12.3 % (11.6-14.6); Red Blood Count 5.06 M/mm3 (4.6-6.2); White Blood Count 13.3 K/mm3 (4.4-11.0)
--- NOTE | 2021-01-21 07:23 | PCM.PN.INT ---
Assessment & Plan Assessment/Plan (1) Pneumonia due to COVID-19 virus: (2) Acute hypoxemic respiratory failure: PLAN: RECOMMENDATIONS: 1. Continue to wean FiO2 for saturations greater than 90%. 2. Continue Decadron and baricitinib to complete treatment courses. 3. Continue Lovenox twice daily as ordered. 4. Awake prone positioning was encouraged. 5. Continue empiric BiPAP therapy nightly. 6. Continue antimicrobials to address MSSA isolated from sputum. 7. Encourage incentive spirometer use and mobilize patient as tolerated. IMPRESSIONS: 1. Acute hypoxemic respiratory failure secondary to COVID-19 pneumonia The patient presented to the hospital with progressive respiratory symptoms in the setting of COVID-19 pneumonia. He was initially treated with remdesivir, which he completed. In addition, the patient has been maintained on Decadron and baricitinib, following evaluation by infectious diseases. His respiratory status remains quite tenuous. The patient will be continued on heated high flow oxygen as tolerated to maintain saturations at or above 90%. Awake prone positioning was encouraged. IV diuretic therapy can be utilized as needed to maintain euvolemic state. In addition to the aforementioned, the patient's sputum culture is growing MSSA. Therefore, he was placed on appropriate antimicrobials as well. Continue Lovenox twice daily as ordered. 2. Morbid obesity/hypertension/hyperlipidemia/GERD Complicates care, management, recovery and prognosis. Continue home medications as indicated. This note was generated with [employer] dictation software. It may contain incorrect words, spelling, and punctuation that were not noted in checking the note before signing. Subjective Subjective The patient was seen and examined at the bedside this morning. Events from the last 24 hours have been reviewed. The patient is currently afebrile, hemodynamically stable and maintaining appropriate oxygen saturations on oxygen. The patient is currently documented to be overall net +800 mL for the hospitalization. He remains on antimicrobials, twice daily Lovenox, Decadron and baricitinib. Objective Data Objective Data The patient's most recent lab work, culture data and imaging studies have all been personally reviewed. Sputum culture dated January 15 was positive for MSSA. Rapid coronavirus antigen testing was positive on January 14. Vital Signs: Vital Signs Temp Pulse Resp BP Pulse Ox 98.8 F 77 28 H 126/62 H 98 01/21/21 04:10 01/21/21 05:02 01/21/21 05:02 01/21/21 04:10 01/21/21 05:02 Oxygen Flow Rate (L/min) 60 Oxygen Delivery Method Bi-pap Weight: 130.9 kg Body Mass Index (BMI) 41.3 Intake & Output: Intake and Output for Last 24 Hours 01/19/21 01/20/21 01/21/21 23:59 23:59 23:59 Intake Total 970 / 970 850 / 850 350 / 350 Output Total 725 / 725 1500 / 2100 800 / 800 Balance 245 / 245 -650 / -1250 -450 / -450 Lab / Micro Data Attestation: I reviewed the patient's lab results. Result Diagrams: 01/21/21 06:52 01/20/21 07:00 Labs: Laboratory Results - last 24 hr 01/20/21 07:00: WBC 8.8, RBC 4.99, Hgb 15.4, Hct 45.0, MCV 90.2, MCH 30.9, MCHC 34.2, RDW Std Deviation 41.4, RDW Coeff of Lucretia 12.5, Plt Count 413, MPV 9.4, Immature Gran % (Auto) 1.700 H, Neut % (Auto) 80.1 H, Lymph % (Auto) 11.8 L, [place] % (Auto) 6.2, Eos % (Auto) 0.0, Baso % (Auto) 0.2, Absolute Neuts (auto) 7.1, Absolute Lymphs (auto) 1.04, Nucleated RBC % 0 01/20/21 07:00: Sodium 135 L, Potassium 4.4, Chloride 102, Carbon Dioxide 26.0, Anion Gap 7, BUN 14, Creatinine 0.84, Estim Creat Clear Calc 109.84, Est GFR (MDRD) Af Amer 124, Est GFR (MDRD) Non-Af 102, BUN/Creatinine Ratio 16.6, Glucose 140 H, Calcium 8.4 L, Total Bilirubin 0.60, AST 91 H, ALT 101 H, Alkaline Phosphatase 74, Total Protein 7.4, Albumin 2.4 L, Globulin 5.0 H, Albumin/Globulin Ratio 0.5 L 01/20/21 11:06: POC Glucose 187 H 01/20/21 16:42: POC Glucose 238 H 01/20/21 22:07: POC Glucose 169 H 01/21/21 06:52: WBC 13.3 H, RBC 5.06, Hgb 15.4, Hct 45.7, MCV 90.3, MCH 30.4, MCHC 33.7, RDW Std Deviation 41.0, RDW Coeff of Lucretia 12.3, Plt Count 510 H, MPV 9.4, Immature Gran % (Auto) 1.800 H, Neut % (Auto) 82.4 H, Lymph % (Auto) 10.3 L, [place] % (Auto) 5.2, Eos % (Auto) 0.0, Baso % (Auto) 0.3, Absolute Neuts (auto) 10.9 H, Absolute Lymphs (auto) 1.37, Nucleated RBC % 0 01/21/21 06:54: POC Glucose 137 H Micro: Microbiology 01/14/21 19:26 Blood Culture (Wb) - Anticubital Left Blood Culture - Final No growth in 5 days. 01/14/21 19:30 Blood Culture (Wb) - Anticubital Right Blood Culture - Final No growth in 5 days. 01/15/21 23:20 Sputum, Expectorated/Coughed Gram Stain - Final 01/15/21 23:20 Sputum, Expectorated/Coughed Respiratory Culture - Final Staphylococcus aureus 01/15/21 15:30 Mucosa - Nasopharyngeal Respiratory Panel (PCR) - Final 01/15/21 15:55 Interface Orders Streptococcus pneumoniae Antigen (M - Final 01/15/21 15:55 Urine, Clean Catch Legionella Antigen - Final 01/14/21 19:30 Mucosa - Nose Influenza Types A,B Direct FA (MISSAEL) - Final 01/14/21 19:30 Nasal Secretion SARS-CoV-2 Antigen (Rapid) - Final SARS-CoV-2 (COVID 19) Physical Exam Const alert General Appearance: cooperative and ill appearing Nutritional Appearance: morbidly obese HEENT normocephalic, head/scalp atraumatic and moist oral mucous membranes Eyes PERRL, EOMs intact bilaterally and conjunctivae normal Neck supple General: trachea midline Chest inspection of chest normal Resp Effort and Inspection: able to speak in complete sentences and tachypneic Auscultation: diminished lung sounds Cardio regular rate and regular rhythm GI normal to inspection, nondistended, normoactive bowel sounds Extremity no clubbing, cyanosis or edema Skin no rashes or lesions noted Neuro CN's II-XII intact bilaterally, moves all extremities and no focal motor deficits Psych cooperative and affect normal Charges/Coding Visit Charges Inpatient E&M: 93674 Subs Hosp L3
[2021-01-21] MEDS: levoFLOXacin IV 750 MG/150 ML BAG 100 MG IV (09:44)
[2021-01-21] MEDS: dexAMETHasone 10 MG/ML Vial 6 MG IV (09:44)
[2021-01-21] MEDS: guaiFENesin 1,200 MG Tablet 1200 MG PO ×2 (09:45→21:38)
[2021-01-21] MEDS: Omega-3 Acid Ethyl Esters 1 GM Capsule 2 GM PO (09:45)
[2021-01-21] MEDS: Pantoprazole Sodium 40 MG Tablet PO (09:45)
[2021-01-21] MEDS: Lisinopril 20 MG Tablet PO (09:45)
[2021-01-21] MEDS: Enoxaparin 40 MG/0.4 ML Syringe SC ×2 (09:46→21:38)
[2021-01-21] MEDS: Insulin Lispro 100 UNIT/ML INSULN.PEN SC ×3 (11:47→21:38)
[2021-01-21 12:10] LABS: Bedside Glucose 192 mg/dL (70-110)
[2021-01-21] MEDS: Ibuprofen 600 MG Tablet PO (16:43)
[2021-01-21 17:06] LABS: Bedside Glucose 239 mg/dL (70-110)
--- NOTE | 2021-01-21 17:34 | PN.HOSP_ITS ---
Subjective Subjective Coughing fits and his oxygen will drop. RG. Objective Data Objective Data Vital Signs: Vital Signs Temp Pulse Resp BP Pulse Ox 36.9 C 81 20 H 123/75 H 96 01/21/21 15:45 01/21/21 15:45 01/21/21 15:45 01/21/21 15:45 01/21/21 16:20 Oxygen Flow Rate (L/min) 60 Oxygen Delivery Method Airvo Weight: 130.9 kg Body Mass Index (BMI) 41.3 Intake & Output: Intake and Output for Last 24 Hours 01/19/21 01/20/21 01/21/21 23:59 23:59 23:59 Intake Total 970 / 970 850 / 850 500 / 500 Output Total 725 / 725 1500 / 2100 800 / 800 Balance 245 / 245 -650 / -1250 -300 / -300 Lab / Micro Data Result Diagrams: 01/21/21 06:52 01/20/21 07:00 Labs: Laboratory Results - last 24 hr 01/20/21 22:07: POC Glucose 169 H 01/21/21 06:52: WBC 13.3 H, RBC 5.06, Hgb 15.4, Hct 45.7, MCV 90.3, MCH 30.4, MCHC 33.7, RDW Std Deviation 41.0, RDW Coeff of [place] 12.3, Plt Count 510 H, MPV 9.4, Immature Gran % (Auto) 1.800 H, Neut % (Auto) 82.4 H, Lymph % (Auto) 10.3 L , [place] % (Auto) 5.2, Eos % (Auto) 0.0, Baso % (Auto) 0.3, Absolute Neuts (auto) 10.9 H, Absolute Lymphs (auto) 1.37, Nucleated RBC % 0 01/21/21 06:54: POC Glucose 137 H 01/21/21 11:41: POC Glucose 192 H 01/21/21 16:36: POC Glucose 239 H Micro: Microbiology 01/14/21 19:26 Blood Culture (Wb) - Anticubital Left Blood Culture - Final No growth in 5 days. 01/14/21 19:30 Blood Culture (Wb) - Anticubital Right Blood Culture - Final No growth in 5 days. 01/15/21 23:20 Sputum, Expectorated/Coughed Gram Stain - Final 01/15/21 23:20 Sputum, Expectorated/Coughed Respiratory Culture - Final Staphylococcus aureus 01/15/21 15:30 Mucosa - Nasopharyngeal Respiratory Panel (PCR) - Final 01/15/21 15:55 Interface Orders Streptococcus pneumoniae Antigen (M - Final 01/15/21 15:55 Urine, Clean Catch Legionella Antigen - Final 01/14/21 19:30 Mucosa - Nose Influenza Types A,B Direct FA (MISSAEL) - Final 01/14/21 19:30 Nasal Secretion SARS-CoV-2 Antigen (Rapid) - Final SARS-CoV-2 (COVID 19) Physical Exam Const alert and no apparent distress HEENT Head and Scalp: normocephalic Resp normal respiratory effort and no retractions Resp Narrative: coarse breath sounds bilaterally. Cardio regular rate, regular rhythm, S1 normal heart sound and S2 normal heart sound GI normal to inspection, nondistended, normoactive bowel sounds, soft to palpation, non-tender and non-distended Extremity normal to inspection Assessment & Plan Assessment/Plan (1) Pneumonia due to COVID-19 virus: (2) Acute hypoxemic respiratory failure: (3) Diabetes: QUALIFIERS: Diabetes mellitus type: type 2 Diabetes mellitus assisted insulin use: without buttermaker use Diabetes mellitus complication status: without complication Qualified Code(s): E11.9 - Type 2 diabetes mellitus without complications (4) Staphylococcal pneumonia: PLAN: 1. acute hypoxic respiratory failure * 2/2 COVID 19 and MSSA pneumonia * currently on Airvo * wean oxygen as tolerated * encouraged IS * add robitussin AC 2. acute COVID 19 pneumonia * unvaccinated * on dexa, baricitinib * onset 01/12, quarantine through 02/02 3. DM2 * uncontrolled * on SSI * add glargine * check a1c 4. VTE prophylaxis: LMWH Charges/Coding Visit Charges Inpatient E&M: 14877 Subs Hosp L2
[2021-01-21] MEDS: Atorvastatin Calcium 20 MG Tablet PO (21:38)
[2021-01-21 22:01] LABS: Bedside Glucose 268 mg/dL (70-110)
[2021-01-22] VITALS (15 sets, daily range): BP systolic 114–154; BP diastolic 66–73; PULSE 70–93; RESP 12–26; TEMP 36.5–37.1; O2SAT 91–96
[2021-01-22 06:46] LABS: Absolute Lymphocyte Count 1.33 X10^3/uL (0.83-4.51); Absolute Neutrophil Count 11.9 X10^3/uL (2.0-7.7); Basophil# 0.03 X10^3/uL; Basophil% 0.2 % (0-1); Eosinophil# 0.02 X10^3/uL; Eosinophils% 0.1 % (0-5); Hematocrit 44.8 % (40-54); Hemoglobin 15.2 g/dL (13.0-16.5); Lymphocyte # 1.33 X10^3/ul (0.83-4.51); Lymphocyte % 9.3 % (19-41); Mean Corp Hgb Conc 33.9 g/dL (32-36); Mean Corpuscular Hgb 30.6 pg (27.0-32.0); Mean Corpuscular Volume 90.1 fL (80-94); Mean Platelet Vol. 9.3 fl (6.2-12.0); Monocyte# 0.61 X10^3/uL; Monocyte% 4.3 % (0-10); NRBC Flagged by Analyzer 0 % (0-5); Neutrophil # 11.91 X10^3/uL (2.7-7.7); Neutrophil % 83.7 % (47-70); Platelet Count 535 K/mm3 (150-450); RBC Distribution Width CV 12.3 % (11.6-14.6); RBC Distribution Width SD 40.7 fl (35.1-43.9); Red Blood Count 4.97 M/mm3 (4.6-6.2); White Blood Count 14.2 K/mm3 (4.4-11.0)
[2021-01-22 06:51] LABS: Bedside Glucose 105 mg/dL (70-110)
[2021-01-22 07:22] LABS: ALB/GLOB Ratio 0.6 RATIO (0.9-2.4); AST(SGOT) 67 U/L (15-37); Alanine Aminotransfer ALT/SGPT 123 U/L (16-61); Albumin, Serum 2.6 g/dL (3.2-5.0); Alkaline Phosphatase 72 U/L (45-117); Anion Gap 8 (5-15); BUN 18 mg/dL (7-18); BUN/Creat Ratio 23.4 RATIO (10-20); Calcium,Total 8.5 mg/dL (8.5-10.1); Chloride 100 mmol/L (98-107); Creatinine, Serum 0.77 mg/dL (0.70-1.30); EST Glomerular Filtration Rate 114 mL/min (>60); Est Glom Filt Rate - Afr Amer 138 mL/min (>60); Estimated Creatinine Clearance 119.82 ml/min; Globulin 4.6 g/dL (2.2-4.2); Glucose 101 mg/dL (74-106); Potassium 4.3 mmol/L (3.5-5.1); Protein, Total 7.2 g/dL (6.4-8.2); Sodium Level 132 mmol/L (136-145)
[2021-01-22 07:29] LABS: Hemoglobin A1c 6.5 % (3.8-5.6)
--- NOTE | 2021-01-22 08:29 | PCM.PN.INT ---
Assessment & Plan Assessment/Plan (1) Pneumonia due to COVID-19 virus: (2) Acute hypoxemic respiratory failure: PLAN: RECOMMENDATIONS: 1. Continue to wean FiO2 for saturations greater than 90%. 2. Continue Decadron and baricitinib to complete treatment courses. 3. Continue Lovenox twice daily as ordered. 4. Awake prone positioning was encouraged. 5. Continue empiric BiPAP therapy nightly. 6. Continue antimicrobials to address MSSA isolated from sputum. 7. Encourage incentive spirometer use and mobilize patient as tolerated. IMPRESSIONS: 1. Acute hypoxemic respiratory failure secondary to COVID-19 pneumonia The patient presented to the hospital with progressive respiratory symptoms in the setting of COVID-19 pneumonia. He was initially treated with remdesivir, which he completed. In addition, the patient has been maintained on Decadron and baricitinib, following evaluation by infectious diseases. His respiratory status remains quite tenuous. The patient will be continued on heated high flow oxygen as tolerated to maintain saturations at or above 90%. Awake prone positioning was encouraged. IV diuretic therapy can be utilized as needed to maintain euvolemic state. In addition to the aforementioned, the patient's sputum culture is growing MSSA. Therefore, he was placed on appropriate antimicrobials as well. Continue Lovenox twice daily as ordered. 2. Morbid obesity/hypertension/hyperlipidemia/GERD Complicates care, management, recovery and prognosis. Continue home medications as indicated. This note was generated with [employer] dictation software. It may contain incorrect words, spelling, and punctuation that were not noted in checking the note before signing. Subjective Subjective The patient was seen and examined at the bedside this morning. Events from the last 24 hours have been reviewed. The patient is currently afebrile, hemodynamically stable and maintaining appropriate oxygen saturations on Airvo heated high flow. The patient is currently documented to be overall net +500 mL for the hospitalization. He remains on antimicrobials, twice daily Lovenox, Decadron and baricitinib. The patient believes that his cough has worsened overnight. He does report chest discomfort with coughing. Objective Data Objective Data The patient's most recent lab work, culture data and imaging studies have all been personally reviewed. Sputum culture dated January 15 was positive for MSSA. Rapid coronavirus antigen testing was positive on January 14. Vital Signs: Vital Signs Temp Pulse Resp BP Pulse Ox 98.8 F 84 20 H 124/67 H 94 01/22/21 05:15 01/22/21 07:35 01/22/21 05:15 01/22/21 05:15 01/22/21 05:15 Oxygen Flow Rate (L/min) 60 Oxygen Delivery Method Airvo Weight: 130.9 kg Body Mass Index (BMI) 41.3 Intake & Output: Intake and Output for Last 24 Hours 01/20/21 01/21/21 01/22/21 23:59 23:59 23:59 Intake Total 850 / 850 700 / 700 300 / 300 Output Total 1500 / 2100 1200 / 1200 550 / 550 Balance -650 / -1250 -500 / -500 -250 / -250 Lab / Micro Data Attestation: I reviewed the patient's lab results. Result Diagrams: 01/22/21 05:57 01/22/21 05:57 Labs: Laboratory Results - last 24 hr 01/21/21 11:41: POC Glucose 192 H 01/21/21 16:36: POC Glucose 239 H 01/21/21 21:30: POC Glucose 268 H 01/22/21 05:57: WBC 14.2 H, RBC 4.97, Hgb 15.2, Hct 44.8, MCV 90.1, MCH 30.6, MCHC 33.9, RDW Std Deviation 40.7, RDW Coeff of Lucretia 12.3, Plt Count 535 H, MPV 9.3, Immature Gran % (Auto) 2.400 H, Neut % (Auto) 83.7 H, Lymph % (Auto) 9.3 L, [place] % (Auto) 4.3, Eos % (Auto) 0.1, Baso % (Auto) 0.2, Absolute Neuts (auto) 11.9 H, Absolute Lymphs (auto) 1.33, Nucleated RBC % 0 01/22/21 05:57: Sodium 132 L, Potassium 4.3, Chloride 100, Carbon Dioxide 24.0, Anion Gap 8, BUN 18, Creatinine 0.77, Estim Creat Clear Calc 119.82, Est GFR (MDRD) Af Amer 138, Est GFR (MDRD) Non-Af 114, BUN/Creatinine Ratio 23.4 H, Glucose 101, Calcium 8.5, Total Bilirubin 0.60, AST 67 H, ALT 123 H, Alkaline Phosphatase 72, Total Protein 7.2, Albumin 2.6 L, Globulin 4.6 H, Albumin/Globulin Ratio 0.6 L 01/22/21 05:57: Hemoglobin A1c 6.5 H 01/22/21 06:33: POC Glucose 105 Micro: Microbiology 01/14/21 19:26 Blood Culture (Wb) - Anticubital Left Blood Culture - Final No growth in 5 days. 01/14/21 19:30 Blood Culture (Wb) - Anticubital Right Blood Culture - Final No growth in 5 days. 01/15/21 23:20 Sputum, Expectorated/Coughed Gram Stain - Final 01/15/21 23:20 Sputum, Expectorated/Coughed Respiratory Culture - Final Staphylococcus aureus 01/15/21 15:30 Mucosa - Nasopharyngeal Respiratory Panel (PCR) - Final 01/15/21 15:55 Interface Orders Streptococcus pneumoniae Antigen (M - Final 01/15/21 15:55 Urine, Clean Catch Legionella Antigen - Final 01/14/21 19:30 Mucosa - Nose Influenza Types A,B Direct FA (MISSAEL) - Final 01/14/21 19:30 Nasal Secretion SARS-CoV-2 Antigen (Rapid) - Final SARS-CoV-2 (COVID 19) Physical Exam Const alert Constitutional Narrative: Sitting in bedside recliner with Airvo in place. General Appearance: cooperative and ill appearing Nutritional Appearance: morbidly obese HEENT normocephalic, head/scalp atraumatic and moist oral mucous membranes Eyes PERRL, EOMs intact bilaterally and conjunctivae normal Neck supple General: trachea midline Chest inspection of chest normal Resp Effort and Inspection: able to speak in complete sentences and actively coughing Auscultation: diminished lung sounds Cardio regular rate and regular rhythm GI normal to inspection, nondistended, normoactive bowel sounds Extremity no clubbing, cyanosis or edema Skin no rashes or lesions noted Neuro CN's II-XII intact bilaterally, moves all extremities and no focal motor deficits Psych cooperative and affect normal Charges/Coding Visit Charges Inpatient E&M: 69423 Subs Hosp L3
[2021-01-22] MEDS: dexAMETHasone 10 MG/ML Vial 6 MG IV (09:41)
[2021-01-22] MEDS: levoFLOXacin IV 750 MG/150 ML BAG 100 MG IV (09:41)
[2021-01-22] MEDS: Omega-3 Acid Ethyl Esters 1 GM Capsule 2 GM PO (09:42)
[2021-01-22] MEDS: Pantoprazole Sodium 40 MG Tablet PO (09:42)
[2021-01-22] MEDS: Acetaminophen 325 MG Tablet 650 MG PO ×2 (09:42→16:59)
[2021-01-22] MEDS: 0.9% Saline Lock 10 ML Syringe IV (09:42)
[2021-01-22] MEDS: guaiFENesin 1,200 MG Tablet 1200 MG PO ×2 (09:43→20:55)
[2021-01-22] MEDS: Lisinopril 20 MG Tablet PO (09:43)
[2021-01-22] MEDS: Enoxaparin 40 MG/0.4 ML Syringe SC ×2 (09:44→20:54)
[2021-01-22] MEDS: Furosemide 40 MG/4 ML Vial IV (09:44)
[2021-01-22] MEDS: guaiFENesin/Codeine 5 ML UDC 10 ML PO (09:53)
[2021-01-22] MEDS: Ibuprofen 600 MG Tablet PO ×2 (11:43→20:53)
[2021-01-22] MEDS: Insulin Lispro 100 UNIT/ML INSULN.PEN SC ×3 (11:43→20:55)
[2021-01-22 12:01] LABS: Bedside Glucose 261 mg/dL (70-110)
--- NOTE | 2021-01-22 13:41 | PN.HOSP_ITS ---
Subjective Subjective Feel fine at present. Objective Data Objective Data Vital Signs: Vital Signs Temp Pulse Resp BP Pulse Ox 36.8 C 93 18 154/73 H 96 01/22/21 09:39 01/22/21 13:22 01/22/21 09:39 01/22/21 09:39 01/22/21 11:47 Oxygen Flow Rate (L/min) 60 Oxygen Delivery Method Airvo Weight: 130.9 kg Body Mass Index (BMI) 41.3 Intake & Output: Intake and Output for Last 24 Hours 01/20/21 01/21/21 01/22/21 23:59 23:59 23:59 Intake Total 850 / 850 700 / 700 450 / 450 Output Total 1500 / 2100 1200 / 1200 1350 / 1350 Balance -650 / -1250 -500 / -500 -900 / -900 Lab / Micro Data Result Diagrams: 01/22/21 05:57 01/22/21 05:57 Labs: Laboratory Results - last 24 hr 01/21/21 16:36: POC Glucose 239 H 01/21/21 21:30: POC Glucose 268 H 01/22/21 05:57: WBC 14.2 H, RBC 4.97, Hgb 15.2, Hct 44.8, MCV 90.1, MCH 30.6, MCHC 33.9, RDW Std Deviation 40.7, RDW Coeff of Lucretia 12.3, Plt Count 535 H, MPV 9.3, Immature Gran % (Auto) 2.400 H, Neut % (Auto) 83.7 H, Lymph % (Auto) 9.3 L, [place] % (Auto) 4.3, Eos % (Auto) 0.1, Baso % (Auto) 0.2, Absolute Neuts (auto) 11.9 H, Absolute Lymphs (auto) 1.33, Nucleated RBC % 0 01/22/21 05:57: Sodium 132 L, Potassium 4.3, Chloride 100, Carbon Dioxide 24.0, Anion Gap 8, BUN 18, Creatinine 0.77, Estim Creat Clear Calc 119.82, Est GFR (MDRD) Af Amer 138, Est GFR (MDRD) Non-Af 114, BUN/Creatinine Ratio 23.4 H, Glucose 101, Calcium 8.5, Total Bilirubin 0.60, AST 67 H, ALT 123 H, Alkaline Phosphatase 72, Total Protein 7.2, Albumin 2.6 L, Globulin 4.6 H, Albumin/Globulin Ratio 0.6 L 01/22/21 05:57: Hemoglobin A1c 6.5 H 01/22/21 06:33: POC Glucose 105 01/22/21 11:41: POC Glucose 261 H Micro: Microbiology 01/14/21 19:26 Blood Culture (Wb) - Anticubital Left Blood Culture - Final No growth in 5 days. 01/14/21 19:30 Blood Culture (Wb) - Anticubital Right Blood Culture - Final No growth in 5 days. 01/15/21 23:20 Sputum, Expectorated/Coughed Gram Stain - Final 01/15/21 23:20 Sputum, Expectorated/Coughed Respiratory Culture - Final Staphylococcus aureus 01/15/21 15:30 Mucosa - Nasopharyngeal Respiratory Panel (PCR) - Final 01/15/21 15:55 Interface Orders Streptococcus pneumoniae Antigen (M - Final 01/15/21 15:55 Urine, Clean Catch Legionella Antigen - Final 01/14/21 19:30 Mucosa - Nose Influenza Types A,B Direct FA (MISSAEL) - Final 01/14/21 19:30 Nasal Secretion SARS-CoV-2 Antigen (Rapid) - Final SARS-CoV-2 (COVID 19) Physical Exam Const Constitutional Narrative: up in chair on Airvo. No eye contact. Flat affect. Resp normal respiratory effort, no retractions, no use of accessory muscles and clear to auscultation bilaterally Cardio regular rate, regular rhythm, S1 normal heart sound and S2 normal heart sound GI normal to inspection, nondistended, normoactive bowel sounds, soft to palpation, non-tender and non-distended Extremity normal to inspection and full ROM Assessment & Plan Assessment/Plan (1) Pneumonia due to COVID-19 virus: (2) Acute hypoxemic respiratory failure: (3) Diabetes: QUALIFIERS: Diabetes mellitus type: type 2 Diabetes mellitus jail insulin use: without equipment operator intermodal yard use Diabetes mellitus complication status: without complication Qualified Code(s): E11.9 - Type 2 diabetes mellitus withou t complications (4) Staphylococcal pneumonia: PLAN: 1. acute hypoxic respiratory failure * 2/2 COVID 19 and MSSA pneumonia * currently on Airvo * wean oxygen as tolerated * encouraged IS * add robitussin AC 2. acute COVID 19 pneumonia * unvaccinated * on dexa, baricitinib * onset 01/12, quarantine through 02/02 3. MSSA pneumonia * on levofloxacin * continue abx through 01/26 4. DM2 * uncontrolled * exacerbated by steroids * on SSI * increase glargine to 20 (up from 10) * a1c 6.5 5. Depression * appears very withdrawn today * unable to determine if solely situational v chronic * reassess. 6. VTE prophylaxis: LMWH Charges/Coding Visit Charges Inpatient E&M: 78155 Subs Hosp L2
[2021-01-22 17:35] LABS: Bedside Glucose 278 mg/dL (70-110)
[2021-01-22] MEDS: Atorvastatin Calcium 20 MG Tablet PO (20:54)
[2021-01-22 21:11] LABS: Bedside Glucose 298 mg/dL (70-110)
[2021-01-23] VITALS (17 sets, daily range): BP systolic 118–147; BP diastolic 69–76; PULSE 64–91; RESP 12–22; TEMP 36.6–36.7; O2SAT 91–96
[2021-01-23] MEDS: Acetaminophen 325 MG Tablet 650 MG PO ×2 (05:57→21:36)
[2021-01-23 07:00] LABS: Bedside Glucose 97 mg/dL (70-110)
[2021-01-23 07:11] LABS: Absolute Lymphocyte Count 1.24 X10^3/uL (0.83-4.51); Absolute Neutrophil Count 9.3 X10^3/uL (2.0-7.7); Basophil# 0.04 X10^3/uL; Basophil% 0.3 % (0-1); Eosinophil# 0.14 X10^3/uL; Eosinophils% 1.2 % (0-5); Hematocrit 44.7 % (40-54); Hemoglobin 14.7 g/dL (13.0-16.5); Lymphocyte # 1.24 X10^3/ul (0.83-4.51); Lymphocyte % 10.5 % (19-41); Mean Corp Hgb Conc 32.9 g/dL (32-36); Mean Corpuscular Hgb 29.9 pg (27.0-32.0); Monocyte# 0.47 X10^3/uL; NRBC Flagged by Analyzer 0 % (0-5); Neutrophil # 9.33 X10^3/uL (2.7-7.7); Neutrophil % 79.1 % (47-70); Platelet Count 610 K/mm3 (150-450); RBC Distribution Width CV 12.1 % (11.6-14.6); RBC Distribution Width SD 40.6 fl (35.1-43.9); Red Blood Count 4.91 M/mm3 (4.6-6.2); White Blood Count 11.8 K/mm3 (4.4-11.0)
[2021-01-23 07:41] LABS: ALB/GLOB Ratio 0.5 RATIO (0.9-2.4); AST(SGOT) 44 U/L (15-37); Alanine Aminotransfer ALT/SGPT 114 U/L (16-61); Albumin, Serum 2.5 g/dL (3.2-5.0); Alkaline Phosphatase 73 U/L (45-117); Anion Gap 9 (5-15); BUN 19 mg/dL (7-18); BUN/Creat Ratio 21.5 RATIO (10-20); Calcium,Total 8.4 mg/dL (8.5-10.1); Chloride 101 mmol/L (98-107); Creatinine, Serum 0.88 mg/dL (0.70-1.30); EST Glomerular Filtration Rate 97 mL/min (>60); Est Glom Filt Rate - Afr Amer 118 mL/min (>60); Estimated Creatinine Clearance 104.85 ml/min; Globulin 4.7 g/dL (2.2-4.2); Glucose 102 mg/dL (74-106); Potassium 4.1 mmol/L (3.5-5.1); Protein, Total 7.2 g/dL (6.4-8.2); Sodium Level 135 mmol/L (136-145)
[2021-01-23] MEDS: Enoxaparin 40 MG/0.4 ML Syringe SC ×2 (09:18→21:36)
[2021-01-23] MEDS: guaiFENesin 1,200 MG Tablet 1200 MG PO ×2 (09:18→21:36)
[2021-01-23] MEDS: Omega-3 Acid Ethyl Esters 1 GM Capsule 2 GM PO (09:18)
[2021-01-23] MEDS: Pantoprazole Sodium 40 MG Tablet PO (09:19)
[2021-01-23] MEDS: levoFLOXacin IV 750 MG/150 ML BAG 100 MG IV (09:19)
[2021-01-23] MEDS: dexAMETHasone 10 MG/ML Vial 6 MG IV (09:19)
[2021-01-23] MEDS: Lisinopril 20 MG Tablet PO (09:19)
[2021-01-23] MEDS: Insulin Lispro 100 UNIT/ML INSULN.PEN SC ×3 (11:21→21:43)
[2021-01-23] MEDS: Ibuprofen 600 MG Tablet PO (11:21)
[2021-01-23 11:32] LABS: Bedside Glucose 237 mg/dL (70-110)
--- NOTE | 2021-01-23 14:47 | PCM.PN.ID ---
Physical Exam Narrative Feeling a little better, some yellow sputum Const alert General Appearance: cooperative Resp Auscultation: diminished lung sounds Cardio regular rate and regular rhythm GI normal to inspection, nondistended, normoactive bowel sounds Skin no rashes or lesions noted ID ID: Route of nutrition/ use of supplements: [] Nutritional Intake: [] IV Site: [] [place] Catheter: [] Assessment & Plan Assessment/Plan (1) Pneumonia due to COVID-19 virus: PLAN: Isolate for 20 days. On baricitinib, dex. Sputum with mssa. Will narrow levaquin to cefazolin. Will follow (2) Staphylococcal pneumonia: (3) Acute hypoxemic respiratory failure:
--- NOTE | 2021-01-23 15:03 | PN.CC_ITS ---
Assessment & Plan Assessment/Plan (1) Pneumonia due to COVID-19 virus: (2) Acute hypoxemic respiratory failure: PLAN: RECOMMENDATIONS: 1. Continue to wean FiO2 for saturations greater than 90%. 2. Continue Decadron (01/29/2021) and baricitinib (02/01/2021) to complete treatment courses. 3. Continue Lovenox twice daily as ordered. 4. Awake prone positioning was encouraged. 5. Continue empiric BiPAP therapy nightly. 6. Continue antimicrobials to address MSSA isolated from sputum per infectious disease. 7. Encourage incentive spirometer use and mobilize patient as tolerated. IMPRESSIONS: 1. Acute hypoxemic respiratory failure secondary to COVID-19 pneumonia The patient presented to the hospital with progressive respiratory symptoms in the setting of COVID-19 pneumonia. He was initially treated with remdesivir, which he completed. In addition, the patient has been maintained on Decadron and baricitinib, following evaluation by infectious diseases. Respiratory status appears to be improving somewhat. We will continue to use diuretic therapy to maintain a euvolemic state. Stressed to the patient the im portance of using Acapella and prone positioning, but patient appears to be precontemplative. Continue BiPAP with sleep to limit nocturnal atelectasis 2. Morbid obesity/hypertension/hyperlipidemia/GERD/nonvaccinated status Complicates care, management, recovery and prognosis. Continue home medications as indicated. Subjective Subjective Patient did okay overnight. No acute issues were reported. Patient is reporting a productive cough, but no hemoptysis is been reported. Patient lucero ble to use prone positioning per the patient. Patient has been able to use BiPAP for the 6 hours of sleep. Objective Data Objective Data Vital Signs: Vital Signs Temp Pulse Resp BP Pulse Ox 36.6 C 90 21 H 147/72 H 91 01/23/21 09:30 01/23/21 11:00 01/23/21 10:00 01/23/21 09:30 01/23/21 10:00 Oxygen Flow Rate (L/min) 60 Oxygen Delivery Method Airvo Weight: 130.9 kg Body Mass Index (BMI) 41.3 Intake & Output: Intake and Output for Last 24 Hours 01/21/21 01/22/21 01/23/21 23:59 23:59 23:59 Intake Total 700 / 700 450 / 450 270 / 270 Output Total 1200 / 1200 1350 / 1750 650 / 650 Balance -500 / -500 -900 / -1300 -380 / -380 Lab / Micro Data Result Diagrams: 01/23/21 05:20 01/23/21 05:20 Labs: Laboratory Results - last 24 hr 01/22/21 16:57: POC Glucose 278 H 01/22/21 20:52: POC Glucose 298 H 01/23/21 05:20: WBC 11.8 H, RBC 4.91, Hgb 14.7, Hct 44.7, MCV 91.0, MCH 29.9, MCHC 32.9, RDW Std Deviation 40.6, RDW Coeff of Lucretia 12.1, Plt Count 610 H, MPV 9.0, Immature Gran % (Auto) 4.900 H, Neut % (Auto) 79.1 H, Lymph % (Auto) 10.5 L , Schleicher % (Auto) 4.0, Eos % (Auto) 1.2, Baso % (Auto) 0.3, Absolute Neuts (auto) 9.3 H, Absolute Lymphs (auto) 1.24, Nucleated RBC % 0 01/23/21 05:20: Sodium 135 L, Potassium 4.1, Chloride 101, Carbon Dioxide 25.0, Anion Gap 9, BUN 19 H, Creatinine 0.88, Estim Creat Clear Calc 104.85, Est GFR (MDRD) Af Amer 118, Est GFR (MDRD) Non-Af 97, BUN/Creatinine Ratio 21.5 H, Glucose 102, Calcium 8.4 L, Total Bilirubin 0.60, AST 44 H, ALT 114 H, Alkaline Phosphatase 73, Total Protein 7.2, Albumin 2.5 L, Globulin 4.7 H, Albumin/Globulin Ratio 0.5 L 01/23/21 06:43: POC Glucose 97 01/23/21 11:20: POC Glucose 237 H Micro: Microbiology 01/14/21 19:26 Blood Culture (Wb) - Anticubital Left Blood Culture - Final No growth in 5 days. 01/14/21 19:30 Blood Culture (Wb) - Anticubital Right Blood Culture - Final No growth in 5 days. 01/15/21 23:20 Sputum, Expectorated/Coughed Gram Stain - Final 01/15/21 23:20 Sputum, Expectorated/Coughed Respiratory Culture - Final Staphylococcus aureus 01/15/21 15:30 Mucosa - Nasopharyngeal Respiratory Panel (PCR) - Final 01/15/21 15:55 Interface Orders Streptococcus pneumoniae Antigen (M - Final 01/15/21 15:55 Urine, Clean Catch Legionella Antigen - Final 01/14/21 19:30 Mucosa - Nose Influenza Types A,B Direct FA (MISSAEL) - Final 01/14/21 19:30 Nasal Secretion SARS-CoV-2 Antigen (Rapid) - Final SARS-CoV-2 (COVID 19) Physical Exam Const alert and oriented x3 Constitutional Narrative: Sitting in bedside recliner with Airvo in place. Mild conversational dyspnea General Appearance: cooperative Nutritional Appearance: morbidly obese HEENT normocephalic, head/scalp atraumatic and moist oral mucous membranes Eyes PERRL, EOMs intact bilaterally and conjunctivae normal Neck supple General: trachea midline Chest inspection of chest normal Chest: symmetrical chest wall rise; Negative for crepitus Resp Effort and Inspection: able to speak in complete sentences and actively coughing Auscultation: diminished lung sounds Cardio regular rate and regular rhythm GI normal to inspection, nondistended, normoactive bowel sounds Extremity no clubbing, cyanosis or edema Skin no rashes or lesions noted Neuro CN's II-XII intact bilaterally, moves all extremities and no focal motor deficits Psych cooperative and affect normal Charges/Coding Visit Charges Inpatient E&M: 85490 Subs Hosp L3
[2021-01-23] MEDS: Cefazolin 2 GM in 0.9% Normal Saline 100 ML IV ×2 (15:41→21:33)
--- NOTE | 2021-01-23 15:50 | PN.HOSP_ITS ---
Subjective Subjective Tolerating airvo. Upset about hearing things are ok and expressed concern that we are not telling him anything about his condition. Objective Data Objective Data Vital Signs: Vital Signs Temp Pulse Resp BP Pulse Ox 36.6 C 88 18 133/69 H 96 01/23/21 15:30 01/23/21 15:30 01/23/21 15:30 01/23/21 15:30 01/23/21 15:30 Oxygen Flow Rate (L/min) 60 Oxygen Delivery Method Airvo Weight: 130.9 kg Body Mass Index (BMI) 41.3 Intake & Output: Intake and Output for Last 24 Hours 01/21/21 01/22/21 01/23/21 23:59 23:59 23:59 Intake Total 700 / 700 450 / 450 270 / 270 Output Total 1200 / 1200 1350 / 1750 650 / 650 Balance -500 / -500 -900 / -1300 -380 / -380 Lab / Micro Data Result Diagrams: 01/23/21 05:20 01/23/21 05:20 Labs: Laboratory Results - last 24 hr 01/22/21 16:57: POC Glucose 278 H 01/22/21 20:52: POC Glucose 298 H 01/23/21 05:20: WBC 11.8 H, RBC 4.91, Hgb 14.7, Hct 44.7, MCV 91.0, MCH 29.9, MCHC 32.9, RDW Std Deviation 40.6, RDW Coeff of Lucretia 12.1, Plt Count 610 H, MPV 9.0, Immature Gran % (Auto) 4.900 H, Neut % (Auto) 79.1 H, Lymph % (Auto) 10.5 L , [place] % (Auto) 4.0, Eos % (Auto) 1.2, Baso % (Auto) 0.3, Absolute Neuts (auto) 9.3 H, Absolute Lymphs (auto) 1.24, Nucleated RBC % 0 01/23/21 05:20: Sodium 135 L, Potassium 4.1, Chloride 101, Carbon Dioxide 25.0, Anion Gap 9, BUN 19 H, Creatinine 0.88, Estim Creat Clear Calc 104.85, Est GFR (MDRD) Af Amer 118, Est GFR (MDRD) Non-Af 97, BUN/Creatinine Ratio 21.5 H, Glucose 102, Calcium 8.4 L, Total Bilirubin 0.60, AST 44 H, ALT 114 H, Alkaline Phosphatase 73, Total Protein 7.2, Albumin 2.5 L, Globulin 4.7 H, Albumin/Globulin Ratio 0.5 L 01/23/21 06:43: POC Glucose 97 01/23/21 11:20: POC Glucose 237 H Micro: Microbiology 01/14/21 19:26 Blood Culture (Wb) - Anticubital Left Blood Culture - Final No growth in 5 days. 01/14/21 19:30 Blood Culture (Wb) - Anticubital Right Blood Culture - Final No growth in 5 days. 01/15/21 23:20 Sputum, Expectorated/Coughed Gram Stain - Final 01/15/21 23:20 Sputum, Expectorated/Coughed Respiratory Culture - Final Staphylococcus aureus 01/15/21 15:30 Mucosa - Nasopharyngeal Respiratory Panel (PCR) - Final 01/15/21 15:55 Interface Orders Streptococcus pneumoniae Antigen (M - Final 01/15/21 15:55 Urine, Clean Catch Legionella Antigen - Final 01/14/21 19:30 Mucosa - Nose Influenza Types A,B Direct FA (MISSAEL) - Final 01/14/21 19:30 Nasal Secretion SARS-CoV-2 Antigen (Rapid) - Final SARS-CoV-2 (COVID 19) Physical Exam Const alert and no apparent distress HEENT head/scalp atraumatic Head and Scalp: normocephalic Resp normal respiratory effort and no retractions Resp Narrative: coarse breath sounds Cardio regular rate, regular rhythm, S1 normal heart sound and S2 normal heart sound GI normal to inspection, nondistended, normoactive bowel sounds, soft to palpation, non-tender and non-distended Extremity Extremity Narrative: edema Skin no rashes or lesions noted Neuro Neuro Narrative: up in chair Sensorium / Orientation: awake and alert Assessment & Plan Assessment/Plan (1) Pneumonia due to COVID-19 virus: (2) Acute hypoxemic respiratory failure: (3) Diabetes: QUALIFIERS: Diabetes mellitus type: type 2 Diabetes mellitus remote computer terminal operator insulin use: without remote computer terminal operator use Diabetes mellitus complication status: without complication Qualified Code(s): E11.9 - Type 2 diabetes mellitus without complications (4) Staphylococcal pneumonia: PLAN: 1. acute hypoxic respiratory failure * 2/2 COVID 19 and MSSA pneumonia * currently on Airvo * wean oxygen as tolerated * encouraged IS * add robitussin AC 2. acute COVID 19 pneumonia * unvaccinated * on dexa, baricitinib * onset 01/12, quarantine through 02/02 3. MSSA pneumonia * on cefazolin * continue abx through 01/26 4. DM2 * uncontrolled * exacerbated by steroids * on SSI * increase glargine to 30 (up from 20) * a1c 6.5 5. Depression * unable to determine if solely situational v chronic 6. VTE prophylaxis: LMWH Greater than 35 minutes of which greater than for present time was discussing with the patient about the MSSA pneumonia as well as COVID-19 pneumonia. Explained to him that bacterial pneumonia tends to be very responsive to ant ibiotics but his main issue is the inflammatory changes associated with his COVID-19 infection. Explained that the inflammation with his Covid is help mitigated by the steroids as well as viral production is mitigated by the remdesivir but once that has been in place it takes time for that to improve to a point where he could be discharged. Explained to him that it is still going to be several days for him to be improved enough to be able to go home though I did tell him I feel overall that he is stable over the past few days and take that as a positive. He seemed content with the answer and he was made aware that he can ask questions whenever he feels the need. I reassured him that were not keeping anything from him. Charges/Coding Visit Charges Inpatient E&M: 30577 [facility] Hosp L3
[2021-01-23] MEDS: Furosemide 40 MG/4 ML Vial IV (16:52)
[2021-01-23] MEDS: 0.9% Saline Lock 10 ML Syringe IV ×2 (16:55→21:33)
[2021-01-23 17:06] LABS: Bedside Glucose 255 mg/dL (70-110)
[2021-01-23] MEDS: Atorvastatin Calcium 20 MG Tablet PO (21:36)
[2021-01-23 22:00] LABS: Bedside Glucose 256 mg/dL (70-110)
[2021-01-24] VITALS (15 sets, daily range): BP systolic 112–128; BP diastolic 60–77; PULSE 69–95; RESP 12–22; TEMP 36.5–37.1; O2SAT 93–96
[2021-01-24] MEDS: Cefazolin 2 GM in 0.9% Normal Saline 100 ML IV ×2 (06:39→14:10)
[2021-01-24 07:05] LABS: Bedside Glucose 102 mg/dL (70-110)
[2021-01-24 07:32] LABS: Hematocrit 47.6 % (40-54); Hemoglobin 15.8 g/dL (13.0-16.5); Mean Corp Hgb Conc 33.2 g/dL (32-36); Mean Corpuscular Hgb 30.4 pg (27.0-32.0); Mean Corpuscular Volume 91.5 fL (80-94); Mean Platelet Vol. 8.9 fl (6.2-12.0); POSITIVE COUNT YES; POSITIVE MORPHOLOGY YES; Platelet Count 721 K/mm3 (150-450); RBC Distribution Width CV 12.1 % (11.6-14.6); RBC Distribution Width SD 40.8 fl (35.1-43.9); White Blood Count 15.2 K/mm3 (4.4-11.0)
[2021-01-24 07:34] LABS: Differential Indicated MANUAL DIFF
[2021-01-24 07:36] LABS: ALB/GLOB Ratio 0.5 RATIO (0.9-2.4); AST(SGOT) 60 U/L (15-37); Alanine Aminotransfer ALT/SGPT 158 U/L (16-61); Albumin, Serum 2.7 g/dL (3.2-5.0); Alkaline Phosphatase 81 U/L (45-117); Anion Gap 7 (5-15); BUN 19 mg/dL (7-18); BUN/Creat Ratio 19.6 RATIO (10-20); Chloride 101 mmol/L (98-107); Creatinine, Serum 0.97 mg/dL (0.70-1.30); EST Glomerular Filtration Rate 87 mL/min (>60); Est Glom Filt Rate - Afr Amer 106 mL/min (>60); Estimated Creatinine Clearance 95.12 ml/min; Globulin 5.3 g/dL (2.2-4.2); Glucose 93 mg/dL (74-106); Potassium 4.2 mmol/L (3.5-5.1); Sodium Level 134 mmol/L (136-145)
[2021-01-24] MEDS: Omega-3 Acid Ethyl Esters 1 GM Capsule 2 GM PO (08:29)
[2021-01-24] MEDS: Lisinopril 20 MG Tablet PO (08:29)
[2021-01-24] MEDS: Pantoprazole Sodium 40 MG Tablet PO (08:30)
[2021-01-24] MEDS: guaiFENesin 1,200 MG Tablet 1200 MG PO ×2 (08:30→21:24)
[2021-01-24] MEDS: dexAMETHasone 10 MG/ML Vial 6 MG IV (08:30)
[2021-01-24] MEDS: Furosemide 40 MG/4 ML Vial IV ×2 (08:30→17:09)
[2021-01-24] MEDS: Enoxaparin 40 MG/0.4 ML Syringe SC ×2 (08:30→21:26)
[2021-01-24] MEDS: Ibuprofen 600 MG Tablet PO ×2 (08:34→21:24)
[2021-01-24 09:37] LABS: Eosinophil 1 % (0-5); Lymphocyte 8 % (19-41); Monocyte 6 % (0-10); Myelocyte 2 % (0-0); Neutrophil-Segmented 83 % (47-70); Total Cells Counted 100 (MANUAL DIFF)
[2021-01-24 09:38] LABS: Absolute Lymphocyte Count 1.22 X10^3/uL (0.83-4.51); Absolute Neutrophil Count 12.6 X10^3/uL (2.0-7.7); Lymphocyte # 1.22 X10^3/ul (0.83-4.51); Platelet Estimate MKD INC (ADEQ); Red Cell Morphology NORM C+C NORMAL (NORM C&C)
--- NOTE | 2021-01-24 10:05 | PN.CC_ITS ---
Assessment & Plan Assessment/Plan (1) Pneumonia due to COVID-19 virus: (2) Acute hypoxemic respiratory failure: PLAN: RECOMMENDATIONS: 1. Continue to wean FiO2 for saturations greater than 90%. Possible attempt at low flow nasal cannula later today 2. Continue Decadron (01/29/2021) and baricitinib (02/01/2021) to complete treatment courses. 3. Continue Lovenox twice daily as ordered. 4. Awake prone positioning was encouraged. 5. Continue empiric BiPAP therapy nightly. 6. Continue antimicrobials to address MSSA isolated from sputum per infectious disease. 7. Encourage incentive spirometer use and mobilize patient as tolerated. IMPRESSIONS: 1. Acute hypoxemic respiratory failure secondary to COVID-19 pneumonia The patient presented to the hospital with progressive respiratory symptoms in the setting of COVID-19 pneumonia. He was initially treated with remdesivir, which he completed. In addition, the patient has been maintained on Decadron and baricitinib, following evaluation by infectious diseases. R espiratory status appears to be improving somewhat. We will continue to use diuretic therapy to maintain a euvolemic state. Patient appears to be tolerating this well. Stressed to the patient the importance of using Acapella and prone positioning, but patient appears to be precontemplative. Continue BiPAP with sleep to limit nocturnal atelectasis. Potentially attempt high flow nasal cannula if able to wean less than 50% on Airvo 2. Morbid obesity/hypertension/hyperlipidemia/GERD/nonvaccinated status Complicates care, management, recovery and prognosis. Continue home medications as indicated. Subjective Subjective Patient did well overnight. Patient did report using BiPAP while sleeping, but this was not documented that I can tell. Patient reports the best sleep I have had since being here. Patient is having a productive cough. Objective Data Objective Data Vital Signs: Vital Signs Temp Pulse Resp BP Pulse Ox 36.9 C 84 20 H 121/76 H 95 01/24/21 08:35 01/24/21 08:35 01/24/21 08:35 01/24/21 08:35 01/24/21 08:35 Oxygen Flow Rate (L/min) 55 Oxygen Delivery Method Airvo Weight: 130.9 kg Body Mass Index (BMI) 41.3 Intake & Output: Intake and Output for Last 24 Hours 01/22/21 01/23/21 01/24/21 23:59 23:59 23:59 Intake Total 450 / 450 610 / 610 127.5 / 127.5 Output Total 1350 / 1750 1100 / 2200 1450 / 1450 Balance -900 / -1300 -490 / -1590 -1322.5 / -1322.5 Lab / Micro Data Result Diagrams: 01/24/21 06:46 01/24/21 06:46 Labs: Laboratory Results - last 24 hr 01/23/21 11:20: POC Glucose 237 H 01/23/21 16:48: POC Glucose 255 H 01/23/21 21:42: POC Glucose 256 H 01/24/21 06:37: POC Glucose 102 01/24/21 06:46: Sodium 134 L, Potassium 4.2, Chloride 101, Carbon Dioxide 26.0, Anion Gap 7, BUN 19 H, Creatinine 0.97, Estim Creat Clear Calc 95.12, Est GFR (MDRD) Af Amer 106, Est GFR (MDRD) Non-Af 87, BUN/Creatinine Ratio 19.6, Glucose 93, Calcium 9.0, Total Bilirubin 0.60, AST 60 H, ALT 158 H, Alkaline Phosphatase 81, Total Protein 8.0, Albumin 2.7 L, Globulin 5.3 H, Albumin/Globulin Ratio 0.5 L 01/24/21 06:46: WBC 15.2 H, RBC 5.20, Hgb 15.8, Hct 47.6, MCV 91.5, MCH 30.4, MCHC 33.2, RDW Std Deviation 40.8, RDW Coeff of Lucretia 12.1, Plt Count 721 H, MPV 8.9, Neut % (Auto) Not Reportable, Absolute Neuts (auto) 12.6 H, Absolute Lymphs (auto) 1.22, Total Counted 100, Neutrophils % (Manual) 83 H, Lymphocytes % (Manual) 8 L, Monocytes % (Manual) 6, Eosinophils % (Manual) 1, Myelocytes % 2 H , Diff Path Review May , Platelet Estimate MKD INC, RBC Morphology NORM C+C Micro: Microbiology 01/14/21 19:26 Blood Culture (Wb) - Anticubital Left Blood Culture - Final No growth in 5 days. 01/14/21 19:30 Blood Culture (Wb) - Anticubital Right Blood Culture - Final No growth in 5 days. 01/15/21 23:20 Sputum, Expectorated/Coughed Gram Stain - Final 01/15/21 23:20 Sputum, Expectorated/Coughed Respiratory Culture - Final Staphylococcus aureus 01/15/21 15:30 Mucosa - Nasopharyngeal Respiratory Panel (PCR) - Final 01/15/21 15:55 Interface Orders Streptococcus pneumoniae Antigen (M - Final 01/15/21 15:55 Urine, Clean Catch Legionella Antigen - Final 01/14/21 19:30 Mucosa - Nose Influenza Types A,B Direct FA (MISSAEL) - Final 01/14/21 19:30 Nasal Secretion SARS-CoV-2 Antigen (Rapid) - Final SARS-CoV-2 (COVID 19) Physical Exam Const alert and oriented x3 Constitutional Narrative: Sitting in bedside recliner with Airvo in place. Mild conversational dyspnea General Appearance: cooperative Nutritional Appearance: morbidly obese HEENT normocephalic, head/scalp atraumatic and moist oral mucous membranes Eyes PERRL, EOMs intact bilaterally and conjunctivae normal Neck supple General: trachea midline Chest inspection of chest normal Chest: symmetrical chest wall rise; Negative for crepitus Resp Effort and Inspection: able to speak in complete sentences and actively coughing Auscultation: diminished lung sounds Cardio regular rate and regular rhythm GI normal to inspection, nondistended, normoactive bowel sounds Extremity no clubbing, cyanosis or edema Skin no rashes or lesions noted Neuro CN's II-XII intact bilaterally, moves all extremities and no focal motor deficits Psych cooperative and affect normal Charges/Coding Visit Charges Inpatient E&M: 07239 Subs Hosp L3
[2021-01-24] MEDS: Insulin Lispro 100 UNIT/ML INSULN.PEN SC ×3 (11:49→21:27)
[2021-01-24] MEDS: Acetaminophen 325 MG Tablet 650 MG PO (11:54)
[2021-01-24 12:00] LABS: Bedside Glucose 293 mg/dL (70-110)
[2021-01-24 12:48] LABS: Pathologist Review Reviewed
--- NOTE | 2021-01-24 15:31 | PN.HOSP_ITS ---
Subjective Subjective Breathing better. Objective Data Objective Data Vital Signs: Vital Signs Temp Pulse Resp BP Pulse Ox 36.8 C 95 19 H 117/60 95 01/24/21 14:20 01/24/21 14:20 01/24/21 14:20 01/24/21 14:20 01/24/21 14:20 Oxygen Flow Rate (L/min) 55 Oxygen Delivery Method Airvo Weight: 130.9 kg Body Mass Index (BMI) 41.3 Intake & Output: Intake and Output for Last 24 Hours 01/22/21 01/23/21 01/24/21 23:59 23:59 23:59 Intake Total 450 / 450 610 / 610 947.25 / 947.25 Output Total 1350 / 1750 1100 / 2200 1700 / 1700 Balance -900 / -1300 -490 / -1590 -752.75 / -752.75 Lab / Micro Data Result Diagrams: 01/24/21 06:46 01/24/21 06:46 Labs: Laboratory Results - last 24 hr 01/23/21 16:48: POC Glucose 255 H 01/23/21 21:42: POC Glucose 256 H 01/24/21 06:37: POC Glucose 102 01/24/21 06:46: Sodium 134 L, Potassium 4.2, Chloride 101, Carbon Dioxide 26.0, Anion Gap 7, BUN 19 H, Creatinine 0.97, Estim Creat Clear Calc 95.12, Est GFR (MDRD) Af Amer 106, Est GFR (MDRD) Non-Af 87, BUN/Creatinine Ratio 19.6, Glucose 93, Calcium 9.0, Total Bilirubin 0.60, AST 60 H, ALT 158 H, Alkaline Phosphatase 81, Total Protein 8.0, Albumin 2.7 L, Globulin 5.3 H, Albumin/Globulin Ratio 0.5 L 01/24/21 06:46: WBC 15.2 H, RBC 5.20, Hgb 15.8, Hct 47.6, MCV 91.5, MCH 30.4, MCHC 33.2, RDW Std Deviation 40.8, RDW Coeff of Lucretia 12.1, Plt Count 721 H, MPV 8.9, Neut % (Auto) Not Reportable, Absolute Neuts (auto) 12.6 H, Absolute Lymphs (auto) 1.22, Total Counted 100, Neutrophils % (Manual) 83 H, Lymphocytes % (Manual) 8 L, Monocytes % (Manual) 6, Eosinophils % (Manual) 1, Myelocytes % 2 H , Diff Path Review Reviewed, Platelet Estimate MKD INC, RBC Morphology NORM C+C 01/24/21 11:48: POC Glucose 293 H Micro: Microbiology 01/14/21 19:26 Blood Culture (Wb) - Anticubital Left Blood Culture - Final No growth in 5 days. 01/14/21 19:30 Blood Culture (Wb) - Anticubital Right Blood Culture - Final No growth in 5 days. 01/15/21 23:20 Sputum, Expectorated/Coughed Gram Stain - Final 01/15/21 23:20 Sputum, Expectorated/Coughed Respiratory Culture - Final Staphylococcus aureus 01/15/21 15:30 Mucosa - Nasopharyngeal Respiratory Panel (PCR) - Final 01/15/21 15:55 Interface Orders Streptococcus pneumoniae Antigen (M - Final 01/15/21 15:55 Urine, Clean Catch Legionella Antigen - Final 01/14/21 19:30 Mucosa - Nose Influenza Types A,B Direct FA (MISSAEL) - Final 01/14/21 19:30 Nasal Secretion SARS-CoV-2 Antigen (Rapid) - Final SARS-CoV-2 (COVID 19) Physical Exam Const alert and no apparent distress HEENT head/scalp atraumatic, moist oral mucous membranes and oropharynx normal Head and Scalp: normocephalic Resp normal respiratory effort, no retractions, no use of accessory muscles and clear to auscultation bilaterally Cardio regular rate, regular rhythm, S1 normal heart sound and S2 normal heart sound GI normal to inspection, nondistended, normoactive bowel sounds, soft to palpation, non-tender and non-distended Assessment & Plan Assessment/Plan (1) Pneumonia due to COVID-19 virus: (2) Acute hypoxemic respiratory failure: (3) Diabetes: QUALIFIERS: Diabetes mellitus type: type 2 Diabetes mellitus termite helper insulin use: without fpc use Diabetes mellitus complication status: without complication Qualified Code(s): E11.9 - Type 2 diabetes mellitus without complications (4) Staphylococcal pneumonia: PLAN: 1. acute hypoxic respiratory failure * 2/2 COVID 19 and MSSA pneumonia * currently on Airvo * wean oxygen as tolerated * encouraged IS * add robitussin AC 2. acute COVID 19 pneumonia * unvaccinated * on dexa, baricitinib * onset 01/12, quarantine through 02/02 3. MSSA pneumonia * on cefazolin * continue abx through 01/26 4. DM2 * uncontrolled * exacerbated by steroids * on SSI * increase glargine to 30 (up from 20) * a1c 6.5 5. Depression * unable to determine if solely situational v chronic 6. VTE prophylaxis: LMWH Charges/Coding Visit Charges Inpatient E&M: 88321 Subs Hosp L2
[2021-01-24 17:15] LABS: Bedside Glucose 275 mg/dL (70-110)
[2021-01-24] MEDS: Atorvastatin Calcium 20 MG Tablet PO (21:24)
[2021-01-24] MEDS: 0.9% Saline Lock 10 ML Syringe IV (21:26)
[2021-01-24 21:40] LABS: Bedside Glucose 227 mg/dL (70-110)
[2021-01-25] VITALS (12 sets, daily range): BP systolic 119–134; BP diastolic 67–94; PULSE 74–99; RESP 12–19; TEMP 36.9; O2SAT 95–98
[2021-01-25] MEDS: 0.9% Saline Lock 10 ML Syringe IV ×4 (06:35→20:52)
[2021-01-25 06:45] LABS: Bedside Glucose 89 mg/dL (70-110)
[2021-01-25 06:57] LABS: Absolute Lymphocyte Count 1.83 X10^3/uL (0.83-4.51); Absolute Neutrophil Count 11.7 X10^3/uL (2.0-7.7); Basophil# 0.06 X10^3/uL; Basophil% 0.4 % (0-1); Eosinophil# 0.37 X10^3/uL; Eosinophils% 2.3 % (0-5); Hematocrit 45.1 % (40-54); Hemoglobin 15.5 g/dL (13.0-16.5); Lymphocyte # 1.83 X10^3/ul (0.83-4.51); Lymphocyte % 11.6 % (19-41); Mean Corp Hgb Conc 34.4 g/dL (32-36); Mean Corpuscular Hgb 30.7 pg (27.0-32.0); Mean Corpuscular Volume 89.3 fL (80-94); Mean Platelet Vol. 8.8 fl (6.2-12.0); Monocyte# 1.07 X10^3/uL; Monocyte% 6.8 % (0-10); NRBC Flagged by Analyzer 0 % (0-5); Neutrophil # 11.73 X10^3/uL (2.7-7.7); Neutrophil % 74.3 % (47-70); POSITIVE COUNT YES; RBC Distribution Width CV 12.1 % (11.6-14.6); RBC Distribution Width SD 39.8 fl (35.1-43.9); Red Blood Count 5.05 M/mm3 (4.6-6.2); White Blood Count 15.8 K/mm3 (4.4-11.0)
[2021-01-25 07:07] LABS: Platelet Count 766 K/mm3 (150-450)
[2021-01-25 07:39] LABS: ALB/GLOB Ratio 0.5 RATIO (0.9-2.4); AST(SGOT) 68 U/L (15-37); Alanine Aminotransfer ALT/SGPT 199 U/L (16-61); Albumin, Serum 2.6 g/dL (3.2-5.0); Alkaline Phosphatase 135 U/L (45-117); Anion Gap 9 (5-15); BUN 27 mg/dL (7-18); Chloride 101 mmol/L (98-107); Creatinine, Serum 0.84 mg/dL (0.70-1.30); EST Glomerular Filtration Rate 102 mL/min (>60); Est Glom Filt Rate - Afr Amer 124 mL/min (>60); Estimated Creatinine Clearance 109.84 ml/min; Globulin 5.1 g/dL (2.2-4.2); Glucose 94 mg/dL (74-106); Potassium 4.3 mmol/L (3.5-5.1); Protein, Total 7.7 g/dL (6.4-8.2); Sodium Level 134 mmol/L (136-145)
[2021-01-25] MEDS: Acetaminophen 325 MG Tablet 650 MG PO ×2 (08:16→20:52)
[2021-01-25] MEDS: Lisinopril 20 MG Tablet PO (08:16)
[2021-01-25] MEDS: Omega-3 Acid Ethyl Esters 1 GM Capsule 2 GM PO (08:17)
[2021-01-25] MEDS: Enoxaparin 40 MG/0.4 ML Syringe SC ×2 (08:17→20:53)
[2021-01-25] MEDS: Pantoprazole Sodium 40 MG Tablet PO (08:17)
[2021-01-25] MEDS: guaiFENesin 1,200 MG Tablet 1200 MG PO ×2 (08:17→20:52)
[2021-01-25] MEDS: dexAMETHasone 10 MG/ML Vial 6 MG IV (08:17)
[2021-01-25] MEDS: Furosemide 40 MG/4 ML Vial IV ×2 (08:17→16:23)
[2021-01-25 08:26] LABS: Differential Comment SCANNED; Platelet Estimate MKD INC (ADEQ)
--- NOTE | 2021-01-25 09:41 | PN.CC_ITS ---
Assessment & Plan Assessment/Plan (1) Pneumonia due to COVID-19 virus: (2) Acute hypoxemic respiratory failure: PLAN: RECOMMENDATIONS: 1. Continue to wean FiO2 for saturations greater than 90%. 2. Continue Decadron (01/29/2021) and baricitinib (02/01/2021) to complete treatment courses. 3. Continue Lovenox twice daily as ordered. 4. Awake prone positioning was encouraged. Acapella to be initiated 5. Continue empiric BiPAP therapy nightly. Potential low flow nasal cannula later today 6. Continue antimicrobials to address MSSA isolated from sputum per infectious disease. 7. Encourage incentive spirometer use and mobilize patient as tolerated. IMPRESSIONS: 1. Acute hypoxemic respiratory failure secondary to COVID-19 pneumonia The patient presented to the hospital with progressive respiratory symptoms in the setting of COVID-19 pneumonia. He was initially treated with remdesivir, which he completed. In addition, the patient has been maintained on Decadron and baricitinib, following evaluation by infectious diseases. Respiratory status appears to be improving somewhat. We will continue to use diuretic therapy to maintain a euvolemic state. Patient appears to be tolerating this well. Stressed to the patient the importance of using Acapella and prone positioning, but patient appears to be precontemplative. Continue BiPAP with sleep to limit nocturnal atelectasis. Patient is slowly improving. Doubt allergic reaction to antibiotics given inconsistency. Clinical suspicion for an element of retained secretions following removal of BiPAP leading to difficulty between 6 and 830. Patient will be given an Acapella. 2. Morbid obesity/hypertension/hyperlipidemia/GERD/nonvaccinated status Complicates care, management, recovery and prognosis. Continue home med ications as indicated. Subjective Subjective Patient did well overnight. Patient states he wakes up at 6:00 in the morning and gets his antibiotic and then things go to hell for 2-1/2 hours. Patient states that he typically starts to have respiratory issues as soon as his antibiotics are started. Patient does not have issues with other dosing and is not reporting any rash, facial swelling or wheezing. Patient states this has happened multiple days in a row. Patient has been requiring less and less Airvo support. Objective Data Objective Data Vital Signs: Vital Signs Temp Pulse Resp BP Pulse Ox 36.9 C 78 18 134/94 H 97 01/25/21 08:25 01/25/21 08:25 01/25/21 08:25 01/25/21 08:25 01/25/21 08:25 Oxygen Flow Rate (L/min) 55 Oxygen Delivery Method Airvo Weight: 130.9 kg Body Mass Index (BMI) 41.3 Intake & Output: Intake and Output for Last 24 Hours 01/23/21 01/24/21 01/25/21 23:59 23:59 23:59 Intake Total 610 / 610 1673.50 / 1673.50 160 / 160 Output Total 1100 / 2200 2825 / 2825 300 / 300 Balance -490 / -1590 -1151.50 / -1151.50 -140 / -140 Lab / Micro Data Result Diagrams: 01/25/21 06:30 01/25/21 06:30 Labs: Laboratory Results - last 24 hr 01/24/21 06:46: Diff Path Review Reviewed 01/24/21 11:48: POC Glucose 293 H 01/24/21 17:04: POC Glucose 275 H 01/24/21 21:19: POC Glucose 227 H 01/25/21 06:30: WBC 15.8 H, RBC 5.05, Hgb 15.5, Hct 45.1, MCV 89.3, MCH 30.7, MCHC 34.4, RDW Std Deviation 39.8, RDW Coeff of Lucretia 12.1, Plt Count 766 H*, MPV 8.8, Immature Gran % (Auto) 4.600 H, Neut % (Auto) 74.3 H, Lymph % (Auto) 11.6 L , [place] % (Auto) 6.8, Eos % (Auto) 2.3, Baso % (Auto) 0.4, Absolute Neuts (auto) 11.7 H, Absolute Lymphs (auto) 1.83, Nucleated RBC % 0, Differential Comment SCANNED, Diff Path Review May alba Platelet Estimate MKD INC 01/25/21 06:30: Sodium 134 L, Potassium 4.3, Chloride 101, Carbon Dioxide 24.0, Anion Gap 9, BUN 27 H, Creatinine 0.84, Estim Creat Clear Calc 109.84, Est GFR (MDRD) Af Amer 124, Est GFR (MDRD) Non-Af 102, BUN/Creatinine Ratio 32.0 H, Glu cose 94, Calcium 9.0, Total Bilirubin 0.70, AST 68 H, ALT 199 H, Alkaline Phosphatase 135 H, Total Protein 7.7, Albumin 2.6 L, Globulin 5.1 H, Albumin/Globulin Ratio 0.5 L 01/25/21 06:33: POC Glucose 89 Micro: Microbiology 01/14/21 19:26 Blood Culture (Wb) - Anticubital Left Blood Culture - Final No growth in 5 days. 01/14/21 19:30 Blood Culture (Wb) - Anticubital Right Blood Culture - Final No growth in 5 days. 01/15/21 23:20 Sputum, Expectorated/Coughed Gram Stain - Final 01/15/21 23:20 Sputum, Expectorated/Coughed Respiratory Culture - Final Staphylococcus aureus 01/15/21 15:30 Mucosa - Nasopharyngeal Respiratory Panel (PCR) - Final 01/15/21 15:55 Interface Orders Streptococcus pneumoniae Antigen (M - Final 01/15/21 15:55 Urine, Clean Catch Legionella Antigen - Final 01/14/21 19:30 Mucosa - Nose Influenza Types A,B Direct FA (MISSAEL) - Final 01/14/21 19:30 Nasal Secretion SARS-CoV-2 Antigen (Rapid) - Final SARS-CoV-2 (COVID 19) Physical Exam Const alert and oriented x3 Constitutional Narrative: Sitting in bedside recliner with Airvo in place. No conversational dyspnea General Appearance: cooperative Nutritional Appearance: morbidly obese HEENT normocephalic, head/scalp atraumatic and moist oral mucous membranes Eyes PERRL, EOMs intact bilaterally and conjunctivae normal Neck supple General: trachea midline Chest inspection of chest normal Chest: symmetrical chest wall rise; Negative for crepitus Resp Effort and Inspection: able to speak in complete sentences and actively coughing Auscultation: diminished lung sounds Cardio regular rate and regular rhythm GI normal to inspection, nondistended, normoactive bowel sounds Extremity no clubbing, cyanosis or edema Skin no rashes or lesions noted Neuro CN's II-XII intact bilaterally, moves all extremities and no focal motor deficits Psych cooperative and affect normal Charges/Coding Visit Charges Inpatient E&M: 03726 Subs Hosp L2
[2021-01-25] MEDS: Insulin Lispro 100 UNIT/ML INSULN.PEN SC ×3 (11:13→20:53)
[2021-01-25 11:20] LABS: Bedside Glucose 286 mg/dL (70-110)
[2021-01-25 13:41] LABS: Pathologist Review Reviewed
--- NOTE | 2021-01-25 14:49 | PN.HOSP_ITS ---
Subjective Subjective Complains of feeling unwell in the AM after being taken of BiPAP and placed on Airvo. During this time he takes cefazolin and feels terrible. Resolves spontaneously. Other times he takes abx he feels well. He denies any fevers and states his oxygen level is good. Demands me to give him an email so I can fill out disability forms. Objective Data Objective Data Vital Signs: Vital Signs Temp Pulse Resp BP Pulse Ox 36.9 C 94 18 134/94 H 97 01/25/21 08:25 01/25/21 11:00 01/25/21 08:25 01/25/21 08:25 01/25/21 09:52 Oxygen Flow Rate (L/min) 55 Oxygen Delivery Method Airvo Weight: 130.9 kg Body Mass Index (BMI) 41.3 Intake & Output: Intake and Output for Last 24 Hours 01/23/21 01/24/21 01/25/21 23:59 23:59 23:59 Intake Total 610 / 610 1673.50 / 1673.50 400 / 400 Output Total 1100 / 2200 2825 / 2825 800 / 800 Balance -490 / -1590 -1151.50 / -1151.50 -400 / -400 Lab / Micro Data Result Diagrams: 01/25/21 06:30 01/25/21 06:30 Labs: Laboratory Results - last 24 hr 01/24/21 17:04: POC Glucose 275 H 01/24/21 21:19: POC Glucose 227 H 01/25/21 06:30: WBC 15.8 H, RBC 5.05, Hgb 15.5, Hct 45.1, MCV 89.3, MCH 30.7, MCHC 34.4, RDW Std Deviation 39.8, RDW Coeff of Lucretia 12.1, Plt Count 766 H*, MPV 8.8, Immature Gran % (Auto) 4.600 H, Neut % (Auto) 74.3 H, Lymph % (Auto) 11.6 L , [place] % (Auto) 6.8, Eos % (Auto) 2.3, Baso % (Auto) 0.4, Absolute Neuts (auto) 11.7 H, Absolute Lymphs (auto) 1.83, Nucleated RBC % 0, Differential Comment SCANNED, Diff Path Review Reviewed, Platelet Estimate MKD INC 01/25/21 06:30: Sodium 134 L, Potassium 4.3, Chloride 101, Carbon Dioxide 24.0, Anion Gap 9, BUN 27 H, Creatinine 0.84, Estim Creat Clear Calc 109.84, Est GFR (MDRD) Af Amer 124, Est GFR (MDRD) Non-Af 102, BUN/Creatinine Ratio 32.0 H, Glucose 94, Calcium 9.0, Total Bilirubin 0.70, AST 68 H, ALT 199 H, Alkaline Phosphatase 135 H, Total Protein 7.7, Albumin 2.6 L, Globulin 5.1 H, Albumin/Globulin Ratio 0.5 L 01/25/21 06:33: POC Glucose 89 01/25/21 11:12: POC Glucose 286 H Micro: Microbiology 01/14/21 19:26 Blood Culture (Wb) - Anticubital Left Blood Culture - Final No growth in 5 days. 01/14/21 19:30 Blood Culture (Wb) - Anticubital Right Blood Culture - Final No growth in 5 days. 01/15/21 23:20 Sputum, Expectorated/Coughed Gram Stain - Final 01/15/21 23:20 Sputum, Expectorated/Coughed Respiratory Culture - Final Staphylococcus aureus 01/15/21 15:30 Mucosa - Nasopharyngeal Respiratory Panel (PCR) - Final 01/15/21 15:55 Interface Orders Streptococcus pneumoniae Antigen (M - Final 01/15/21 15:55 Urine, Clean Catch Legionella Antigen - Final 01/14/21 19:30 Mucosa - Nose Influenza Types A,B Direct FA (MISSAEL) - Final 01/14/21 19:30 Nasal Secretion SARS-CoV-2 Antigen (Rapid) - Final SARS-CoV-2 (COVID 19) Physical Exam Const alert and no apparent distress HEENT head/scalp atraumatic and moist oral mucous membranes Head and Scalp: normocephalic Resp normal respiratory effort, no retractions, no use of accessory muscles and clear to auscultation bilaterally Cardio regular rate, regular rhythm and S1 normal heart sound Assessment & Plan Assessment/Plan (1) Pneumonia due to COVID-19 virus: (2) Acute hypoxemic respiratory failure: (3) Diabetes: QUALIFIERS: Diabetes mellitus type: type 2 Diabetes mellitus fdc insulin use: without long term acute care registered nurse use Diabetes mellitus complication status: without complication Qualified Code(s): E11.9 - Type 2 diabetes mellitus without complications (4) Staphylococcal pneumonia: PLAN: 1. acute hypoxic respiratory failure * 2/2 COVID 19 and MSSA pneumonia * currently on Airvo * wean oxygen as tolerated * encouraged IS * add bertrand AC 2. acute COVID 19 pneumonia * unvaccinated * on dexa, baricitinib * onset 01/12, quarantine through 02/02 3. MSSA pneumonia * on cefazolin * continue abx through 01/26 4. DM2 * uncontrolled * exacerbated by steroids * on SSI * increase glargine to 30 (up from 20) * a1c 6.5 5. Depression * unable to determine if solely situational v chronic 6. VTE prophylaxis: LMWH 7. Transient malaise occurs daily per the patient and resolved spontaneously I told him I doubt it is the abx as he tolerates them during the day encouraged continued observation Pt gets easily frustrated and began yelling at me when I declined to give he and his my email to fill out short-term disability forms. I told him I would fill it out when it was brought it in. He said his could not do so until after work. I told him she can bring it in and I can fill it out when I am able. Today, is the first day he has mentioned this to me. Pt is clearly not coping with his illness well and is quick to anger. Prior to my arrival he was yelling at the respiratory therapist about finally receiving his flutter valve. Though he does calm down after speaking to him in measured tones. Now is certainly not the time to remind him that he is ultimately responsible for current condition being unvaccinated. Charges/Coding Visit Charges Inpatient E&M: 40434 Subs Hosp L2
[2021-01-25] MEDS: Ibuprofen 600 MG Tablet PO (16:23)
[2021-01-25 17:00] LABS: Bedside Glucose 282 mg/dL (70-110)
[2021-01-25] MEDS: Atorvastatin Calcium 20 MG Tablet PO (20:52)
--- NOTE | 2021-01-25 21:01 | NURSING ---
Pt's 2200 medications given early per pt request.
[2021-01-25 21:06] LABS: Bedside Glucose 267 mg/dL (70-110)
[2021-01-26] VITALS (10 sets, daily range): BP systolic 122–140; BP diastolic 75–93; PULSE 70–88; RESP 16–19; TEMP 36.7–36.8; O2SAT 87–100
[2021-01-26 06:43] LABS: Hemoglobin 14.8 g/dL (13.0-16.5); Mean Corp Hgb Conc 33.6 g/dL (32-36); Mean Corpuscular Hgb 30.4 pg (27.0-32.0); Mean Corpuscular Volume 90.3 fL (80-94); Mean Platelet Vol. 8.5 fl (6.2-12.0); POSITIVE COUNT YES; POSITIVE MORPHOLOGY YES; RBC Distribution Width SD 39.8 fl (35.1-43.9); Red Blood Count 4.87 M/mm3 (4.6-6.2); White Blood Count 15.1 K/mm3 (4.4-11.0)
[2021-01-26 06:45] LABS: Differential Indicated MANUAL DIFF; Platelet Count 794 K/mm3 (150-450)
[2021-01-26] MEDS: 0.9% Saline Lock 10 ML Syringe IV (06:45)
[2021-01-26 06:55] LABS: Bedside Glucose 147 mg/dL (70-110)
[2021-01-26 07:11] LABS: ALB/GLOB Ratio 0.5 RATIO (0.9-2.4); AST(SGOT) 49 U/L (15-37); Alanine Aminotransfer ALT/SGPT 178 U/L (16-61); Albumin, Serum 2.6 g/dL (3.2-5.0); Alkaline Phosphatase 77 U/L (45-117); Anion Gap 6 (5-15); BUN 23 mg/dL (7-18); BUN/Creat Ratio 26.9 RATIO (10-20); Calcium,Total 8.9 mg/dL (8.5-10.1); Chloride 100 mmol/L (98-107); Creatinine, Serum 0.86 mg/dL (0.70-1.30); EST Glomerular Filtration Rate 101 mL/min (>60); Est Glom Filt Rate - Afr Amer 122 mL/min (>60); Estimated Creatinine Clearance 107.28 ml/min; Globulin 4.8 g/dL (2.2-4.2); Glucose 121 mg/dL (74-106); Potassium 4.6 mmol/L (3.5-5.1); Protein, Total 7.4 g/dL (6.4-8.2); Sodium Level 133 mmol/L (136-145); Total Cells Counted 100 (MANUAL DIFF)
[2021-01-26 07:12] LABS: Lymphocyte 10 % (19-41); Metamyelocyte 3 % (0-1); Monocyte 2 % (0-10); Myelocyte 1 % (0-0); Neutrophil-Band 1 % (0-5); Neutrophil-Segmented 83 % (47-70)
[2021-01-26 07:13] LABS: Absolute Lymphocyte Count 1.51 X10^3/uL (0.83-4.51); Absolute Neutrophil Count 12.7 X10^3/uL (2.0-7.7); Lymphocyte # 1.51 X10^3/ul (0.83-4.51); Neutrophil # 12.65 X10^3/uL (2.7-7.7); Platelet Estimate ADEQUATE (ADEQ); Red Cell Morphology NORM C+C NORMAL (NORM C&C)
[2021-01-26] MEDS: Acetaminophen 325 MG Tablet 650 MG PO ×2 (08:28→14:55)
[2021-01-26] MEDS: dexAMETHasone 10 MG/ML Vial 6 MG IV (08:30)
[2021-01-26] MEDS: guaiFENesin 1,200 MG Tablet 1200 MG PO (08:30)
[2021-01-26] MEDS: Lisinopril 20 MG Tablet PO (08:30)
[2021-01-26] MEDS: Pantoprazole Sodium 40 MG Tablet PO (08:30)
[2021-01-26] MEDS: Omega-3 Acid Ethyl Esters 1 GM Capsule 2 GM PO (08:30)
[2021-01-26] MEDS: Enoxaparin 40 MG/0.4 ML Syringe SC (08:31)
[2021-01-26] MEDS: Furosemide 40 MG/4 ML Vial IV (08:31)
--- NOTE | 2021-01-26 10:11 | PN.CC_ITS ---
Assessment & Plan Assessment/Plan (1) Pneumonia due to COVID-19 virus: (2) Acute hypoxemic respiratory failure: PLAN: RECOMMENDATIONS: 1. Continue to wean FiO2 for saturations greater than 90%. 2. Continue Decadron (01/29/2021) and baricitinib (02/01/2021) to complete treatment courses. 3. Continue Lovenox twice daily as ordered. 4. Awake prone positioning was encouraged. Acapella to be initiated 5. Continue empiric BiPAP therapy nightly. 6. Complete antimicrobials to address MSSA isolated from sputum today per infectious disease. 7. Encourage incentive spirometer use and mobilize patient as tolerated. 8. If able to tolerate ambulation on 6 L or less, okay to discharge from pulmonary perspective with plan discussed below IMPRESSIONS: 1. Acute hypoxemic respiratory failure secondary to COVID-19 pneumonia The patient presented to the hospital with progressive respiratory symptoms in the setting of COVID-19 pneumonia. He was initially treated with remdesivir, which he completed. In addition, the patient has been maintained on Decadron and baricitinib, following evaluation by infectious diseases. Respiratory status appears to be improving somewhat. Patient is doing well today. Will obtain a walking oximetry. Patient is able to ambulate on 6 L or less, okay to discharge from pulmonary perspective with follow-up in 4 to 6 weeks. Patient was advised to get his own pulse ox. Patient states he will not be able to wear any machines or supplemental oxygen with sleep as his dog will chew on it. Patient is resistant to not letting the dog in the bedroom. Patient understands that not controlling hypoxia will lead to a repeat hospitalization or worsening complications up to and including . 2. Morbid obesity/hypertension/hyperlipidemia/GERD/nonvaccinated status Complicates care, management, recovery and prognosis. Continue home medications as indicated. Subjective Subjective Patient did well overnight. No acute issues were reported. Patient states he did better this morning upon waking up than he has previously. Patient denies any chest pain, but does have a significant productive cough. Objective Data Objective Data Vital Signs: Vital Signs Temp Pulse Resp BP Pulse Ox 36.8 C 78 16 140/93 H 100 01/26/21 08:43 01/26/21 08:43 01/26/21 08:43 01/26/21 08:43 01/26/21 08:43 Oxygen Flow Rate (L/min) 6 Oxygen Delivery Method Nasal Cannula Weight: 130.9 kg Body Mass Index (BMI) 41.3 Intake & Output: Intake and Output for Last 24 Hours 01/24/21 01/25/21 01/26/21 23:59 23:59 23:59 Intake Total 1673.50 / 1673.50 1280 / 1280 210 / 210 Output Total 2825 / 2825 1925 / 1925 1100 / 1100 Balance -1151.50 / -1151.50 -645 / -645 -890 / -890 Lab / Micro Data Result Diagrams: 01/26/21 06:26 01/26/21 06:26 Labs: Laboratory Results - last 24 hr 01/25/21 06:30: Diff Path Review Reviewed 01/25/21 11:12: POC Glucose 286 H 01/25/21 16:22: POC Glucose 282 H 01/25/21 20:46: POC Glucose 267 H 01/26/21 06:26: WBC 15.1 H, RBC 4.87, Hgb 14.8, Hct 44.0, MCV 90.3, MCH 30.4, MCHC 33.6, RDW Std Deviation 39.8, RDW Coeff of Lucretia 12.0, Plt Count 794 H*, MPV 8.5, Neut % (Auto) Not Reportable, Absolute Neuts (auto) 12.7 H, Absolute Lymphs (auto) 1.51, Total Counted 100, Neutrophils % (Manual) 83 H, Band Neutrophils % 1, Lymphocytes % (Manual) 10 L, Monocytes % (Manual) 2, Metamyelocytes % 3 H, Myelocytes % 1 H, Diff Path Review May foll, Platelet Estimate ADEQUATE, RBC Morphology NORM C+C 01/26/21 06:26: Sodium 133 L, Potassium 4.6, Chloride 100, Carbon Dioxide 27.0, Anion Gap 6, BUN 23 H, Creatinine 0.86, Estim Creat Clear Calc 107.28, Est GFR (MDRD) Af Amer 122, Est GFR (MDRD) Non-Af 101, BUN/Creatinine Ratio 26.9 H, Gluc ose 121 H, Calcium 8.9, Total Bilirubin 0.70, AST 49 H, ALT 178 H, Alkaline Phosphatase 77, Total Protein 7.4, Albumin 2.6 L, Globulin 4.8 H, Albumin/Globulin Ratio 0.5 L 01/26/21 06:47: POC Glucose 147 H Micro: Microbiology 01/14/21 19:26 Blood Culture (Wb) - Anticubital Left Blood Culture - Final No growth in 5 days. 01/14/21 19:30 Blood Culture (Wb) - Anticubital Right Blood Culture - Final No growth in 5 days. 01/15/21 23:20 Sputum, Expectorated/Coughed Gram Stain - Final 01/15/21 23:20 Sputum, Expectorated/Coughed Respiratory Culture - Final Staphylococcus aureus 01/15/21 15:30 Mucosa - Nasopharyngeal Respiratory Panel (PCR) - Final 01/15/21 15:55 Interface Orders Streptococcus pneumoniae Antigen (M - Final 01/15/21 15:55 Urine, Clean Catch Legionella Antigen - Final 01/14/21 19:30 Mucosa - Nose Influenza Types A,B Direct FA (MISSAEL) - Final 01/14/21 19:30 Nasal Secretion SARS-CoV-2 Antigen (Rapid) - Final SARS-CoV-2 (COVID 19) Physical Exam Const alert and oriented x3 Constitutional Narrative: Sitting in bedside recliner with nasal cannula in place. No conversational dyspnea General Appearance: cooperative Nutritional Appearance: morbidly obese HEENT normocephalic, head/scalp atraumatic and moist oral mucous membranes Eyes PERRL, EOMs intact bilaterally and conjunctivae normal Neck supple General: trachea midline Chest inspection of chest normal Chest: symmetrical chest wall rise; Negative for crepitus Resp Effort and Inspection: able to speak in complete sentences and actively coughing Auscultation: diminished lung sounds Cardio regular rate and regular rhythm GI normal to inspection, nondistended, normoactive bowel sounds Extremity no clubbing, cyanosis or edema Skin no rashes or lesions noted Neuro CN's II-XII intact bilaterally, moves all extremities and no focal motor deficits Psych cooperative and affect normal Charges/Coding Visit Charges Inpatient E&M: 95372 Subs Hosp L2
--- NOTE | 2021-01-26 10:38 | NURSING ---
pt refused to do home oxygen trial with nursing staff because ot has done his o2 trials every other day. explained to pt that we need the trial done to see if he can go home and what amount of o2 he needs to go home. explained that nursing staff is qualified to do the trail. pt refused and stated he will wait another day if he had to to have ot do his oxygen trial.
[2021-01-26] MEDS: Insulin Lispro 100 UNIT/ML INSULN.PEN SC (11:06)
--- NOTE | 2021-01-26 11:07 | DCINST_ITS ---
Discharge Instructions Diet Discharge Diet: 2000 Calorie Control Diet Activity Discharge Activity: Return to Normal Activity (ease back into normal routine. ) Dressing / Incision Call your doctor if you observe: Fever of 101 or Higher and Shortness of breath Follow Up Care Test Results: Test results from this visit will be discussed in further detail at your follow-up appointment, if applicable. Discharge Plan Admission Admit Date/Time: 01/14/21 22:27 Primary Reason for Your Visit: COVID 19 Attending Provider: Juwan Miner Primary Care Provider: Cecelia Villalobos Consulting Providers: Donavon Baez ; Patel Orozco ; Jarvis Guzman ; Jacqueline Haney DIRECTOR OF GUIDANCE Discharge Orders/Prescriptions Prescriptions: New dexamethasone 6 mg tablet 6 mg PO DAILY Qty: 1 RF: 0 Mucus Relief ER 1,200 mg Tablet Extended Release 12hr 1,200 mg PO BID Qty: 10 RF: 0 acetaminophen [Tylenol] 325 mg Tablet 650 mg PO Q6H PRN PRN (Reason: Pain Score 1-10/Temp > 100.7 F) Qty: 0 RF: 0 loperamide 2 mg Capsule 2 mg PO Q2H PRN PRN (Reason: Diarrhea) Qty: 0 RF: 0 melatonin 3 mg Tablet 3 mg PO QHS PRN PRN (Reason: Insomnia) Qty: 0 RF: 0 ibuprofen 600 mg Tablet 600 mg PO Q8H PRN PRN (Reason: fever, pain 1-10/10) Qty: 0 RF: 0 sodium chloride [[place] Nasal] 0.65 % Aerosol,[place] 2 spray NASAL TID PRN PRN (Reason: NASAL DRYNESS) Qty: 0 RF: 0 doxycycline monohydrate 100 mg tablet 100 mg PO BID Qty: 4 RF: 0 Continued metformin 500 mg Tablet 500 mg PO BID RF: 0 lisinopril 20 mg Tablet 20 mg PO DAILY RF: 0 simvastatin [Zocor] 40 mg Tablet 40 mg PO DAILY RF: 0 glimepiride [Amaryl] 4 mg Tablet 4 mg PO DAILY RF: 0 lansoprazole [Prevacid] 30 mg Capsule,Delayed Release(Dr/Ec) 30 mg PO DAILY RF: 0 omega-3 fatty acids Capsule 2,000 mg PO DAILY RF: 0 Referrals / Follow Up: Cecelia Villalobos MD [Primary Care Provider] - Within 2 Weeks Disposition Disposition (needs filled in before D/C Order can be placed): Home, Self Care
--- NOTE | 2021-01-26 11:24 | PCM.DC.SUM ---
Providers Date of Admission: 01/14/21 Primary Care Physician: Dr. Cecelia Villalobos MD Consultations 01/19/21 08:22 Consult: Infectious Disease Routine Consulting Provider: Donavon Baez Reason for Consult: Worsening resp failure, transitioning to air vo EMERGENT Consult: No Notified: Yes Date Notified: 01/19/21 Time Notified: 08:49 Method of Notification: Answering Service 01/20/21 06:29 Consult: Policy Change Clerk / Pulmonary Medicine Routine Consulting Provider: Pulmonary Medicine [facility] Reason for Consult: COVID PNA, Resp failure, transitioned to BIPAP EMERGENT Consult: No Notified: Yes Date Notified: 01/20/21 Time Notified: 06:29 Method of Notification: Verbal Reason For Visit: ACUTE HYPOXEMIC RESPIRATORY FAILURE FROM COVID Diagnosis Discharge Diagnosis (1) Pneumonia due to COVID-19 virus: Status: Acute Code(s): U07.1 - COVID-19; J12.82 - Pneumonia due to coronavirus disease 2019 (2) Acute hypoxemic respiratory failure: Status: Acute Code(s): J96.01 - Acute respiratory failure with hypoxia (3) Staphylococcal pneumonia: Status: Acute Code(s): J15.20 - Pneumonia due to staphylococcus, unspecified Medications at Discharge Home Medications glimepiride [Amaryl] 4 mg PO DAILY 01/14/21 lansoprazole [Prevacid] 30 mg PO DAILY 01/14/21 lisinopril 20 mg PO DAILY 01/14/21 metformin 500 mg PO BID 01/14/21 omega-3 fatty acids 2,000 mg PO DAILY 01/14/21 simvastatin [Zocor] 40 mg PO DAILY 01/14/21 acetaminophen [Tylenol] 650 mg PO Q6H PRN PRN #0 tab 01/26/21 dexamethasone 6 mg PO DAILY #1 tab 01/26/21 doxycycline monohydrate 100 mg PO BID #4 tab 01/26/21 guaifenesin [Mucus Relief ER] 1,200 mg PO BID #10 tab 01/26/21 ibuprofen 600 mg PO Q8H PRN PRN #0 tab 01/26/21 loperamide 2 mg PO Q2H PRN PRN #0 cap 01/26/21 melatonin 3 mg PO QHS PRN PRN #0 tab 01/26/21 sodium chloride [Deep Sea Nasal] 2 spray NASAL TID PRN PRN #0 ml 01/26/21 Hospital Course Operations None Procedures None Summary of Care Provided Minutes Spent on Discharge: 50 Hospital Course: 1. acute hypoxic respiratory failure 2/2 COVID 19 and MSSA pneumonia wean oxygen as tolerated encouraged IS Greatly improved. Ambulated today with 4l and dropped to 90% 2. acute COVID 19 pneumonia unvaccinated on dexa, baricitinib 1 more day of dexamethasone, then stop. I reviewed the MAR and it appears there was a gap from admission until the 2nd when he did not receive dexamethasone. He has received 9 doses thus far. 3. MSSA pneumonia on cefazolin change to doxycycline 4. DM2 uncontrolled exacerbated by steroids on SSI discharge with home glyburide and metformin Had a very taylor conversation with the patient today in regards to him yelling at nursing upon checking his oxygen. He stated before check by Occupational Therapy now it has been by the nurse. I told him that it does not matter who is checked by and including myself who even checks it. I explained to him that he has been very belligerent towards myself as well as other staff and that we are just here to try to help him. He is obviously very overwhelmed and became very overwhelmed when the stud sheep farmer asked him if he had a pulse oximeter. He is very concerned about being able to afford it. He is still very concerned about being able to afford Pulsoxymeter even informed that it may are relatively inexpensive and relatively easily accessible at variety of drugstores. I told patient that his behavior is impeding his overall care and is causing duress upon the staff. I recognize that he is a very overwhelmed with him but he needs to exercise restraint in regards to his behavior towards people are trying to help him. He was apologetic and later apologized to the nurse that he was yelling at earlier. I filled out his form for short-term disability. Physical Exam Const alert Constitutional Narrative: Up ambulating in his room his pulse ox dropped down to 90% on 4 L nasal cannula. No respiratory distress. No conversational dyspnea. Weight / BMI Weight Weight: 130.9 kg Body Mass Index (BMI) 41.3 ABG / Lab / Microbiology Data Result Diagrams: 01/26/21 06:26 01/26/21 06:26 Laboratory: Laboratory Results - last 24 hr 01/25/21 06:30: Diff Path Review Reviewed 12/08/21 16:22: POC Glucose 282 H 01/25/21 20:46: POC Glucose 267 H 01/26/21 06:26: WBC 15.1 H, RBC 4.87, Hgb 14.8, Hct 44.0, MCV 90.3, MCH 30.4, MCHC 33.6, RDW Std Deviation 39.8, RDW Coeff of Lucretia 12.0, Plt Count 794 H*, MPV 8.5, Neut % (Auto) Not Reportable, Absolute Neuts (auto) 12.7 H, Absolute Lymphs (auto) 1.51, Total Counted 100, Neutrophils % (Manual) 83 H, Band Neutrophils % 1, Lymphocytes % (Manual) 10 L, Monocytes % (Manual) 2, Metamyelocytes % 3 H, Myelocytes % 1 H, Diff Path Review June, Platelet Estimate ADEQUATE, RBC Morphology NORM C+C 01/26/21 06:26: Sodium 133 L, Potassium 4.6, Chloride 100, Carbon Dioxide 27.0, Anion Gap 6, BUN 23 H, Creatinine 0.86, Estim Creat Clear Calc 107.28, Est GFR (MDRD) Af Amer 122, Est GFR (MDRD) Non-Af 101, BUN/Creatinine Ratio 26.9 H, Glucose 121 H, Calcium 8.9, Total Bilirubin 0.70, AST 49 H, ALT 178 H, Alkaline Phosphatase 77, Total Protein 7.4, Albumin 2.6 L, Globulin 4.8 H, Albumin/Globulin Ratio 0.5 L 01/26/21 06:47: POC Glucose 147 H Microbiology: Microbiology 01/14/21 19:26 Blood Culture (Wb) - Anticubital Left Blood Culture - Final No growth in 5 days. 01/14/21 19:30 Blood Culture (Wb) - Anticubital Right Blood Culture - Final No growth in 5 days. 01/15/21 23:20 Sputum, Expectorated/Coughed Gram Stain - Final 01/15/21 23:20 Sputum, Expectorated/Coughed Respiratory Culture - Final Staphylococcus aureus 01/15/21 15:30 Mucosa - Nasopharyngeal Respiratory Panel (PCR) - Final 01/15/21 15:55 Interface Orders Streptococcus pneumoniae Antigen (M - Final 01/15/21 15:55 Urine, Clean Catch Legionella Antigen - Final 01/14/21 19:30 Mucosa - Nose Influenza Types A,B Direct FA (MISSAEL) - Final 01/14/21 19:30 Nasal Secretion SARS-CoV-2 Antigen (Rapid) - Final SARS-CoV-2 (COVID 19) D/C Instructions Discharge Diet: 2000 Calorie Control Diet Call your doctor if you observe: Fever of 101 or Higher and Shortness of breath Meaningful Use Info Meaningful Use Diagnoses (Choose all that apply): None applicable Discharge Plan Admission Admit Date/Time: 01/14/21 22:27 Primary Reason for Your Visit: COVID 19 Attending Provider: Juwan Miner Primary Care Provider: Cecelia Villalobos Consulting Providers: Donavon Baez ; Patel Orozco ; Jarvis Guzman ; Jacqueline Haney MAINTENANCE CONSTRUCTION HELPER Discharge Orders/Prescriptions Prescriptions: New dexamethasone 6 mg tablet 6 mg PO DAILY Qty: 1 RF: 0 Mucus Relief ER 1,200 mg Tablet Extended Release 12hr 1,200 mg PO BID Qty: 10 RF: 0 acetaminophen [Tylenol] 325 mg Tablet 650 mg PO Q6H PRN PRN (Reason: Pain Score 1-10/Temp > 100.7 F) Qty: 0 RF: 0 loperamide 2 mg Capsule 2 mg PO Q2H PRN PRN (Reason: Diarrhea) Qty: 0 RF: 0 melatonin 3 mg Tablet 3 mg PO QHS PRN PRN (Reason: Insomnia) Qty: 0 RF: 0 ibuprofen 600 mg Tablet 600 mg PO Q8H PRN PRN (Reason: fever, pain 1-10/10) Qty: 0 RF: 0 sodium chloride [Deep Sea Nasal] 0.65 % Aerosol,[place] 2 spray NASAL TID PRN PRN (Reason: NASAL DRYNESS) Qty: 0 RF: 0 doxycycline monohydrate 100 mg tablet 100 mg PO BID Qty: 4 RF: 0 Continued metformin 500 mg Tablet 500 mg PO BID RF: 0 lisinopril 20 mg Tablet 20 mg PO DAILY RF: 0 simvastatin [Zocor] 40 mg Tablet 40 mg PO DAILY RF: 0 glimepiride [Amaryl] 4 mg Tablet 4 mg PO DAILY RF: 0 lansoprazole [Prevacid] 30 mg Capsule,Delayed Release(Dr/Ec) 30 mg PO DAILY RF: 0 omega-3 fatty acids Capsule 2,000 mg PO DAILY RF: 0 Referrals / Follow Up: Cecelia Villalobos MD [Primary Care Provider] - Within 2 Weeks Disposition Disposition (needs filled in before D/C Order can be placed): Home, Self Care Charges/Coding Visit Charges Inpatient E&M: 90928 Disch Hosp
[2021-01-26 11:41] LABS: Bedside Glucose 264 mg/dL (70-110)
--- NOTE | 2021-01-26 12:56 | CASEMGMT ---
Pt qualifies with 4L nc w/ exertion home oxygen and states no preference on DME provider. [place] [facility] notified of referral and need for e-tank, voices understanding. Pt updated on all, voices understanding. Pt encouraged to get pulse ox for home, voices understanding. [facility] info placed on pt's d/c plan. Pt voices no further questions/concerns/needs. Orquidea LOONEY CM
[2021-01-27 10:12] LABS: Pathologist Review Reviewed
== END 2021-01-26 16:11 | disposition home or self-care (01) | DRG 177 ==
LOC: ED 21:58 → PCU 22:42
PROVIDERS: Family Medicine; Internal Medicine Critical Care Medicine; Admitting Provider Hospitalist; Emergency Provider Emergency Medicine; PCP Internal Medicine
DX: U07.1 COVID-19 (principal); J96.01 Acute respiratory failure with hypoxia; J15.211 Pneumonia due to Methicillin susceptible Staphylococcus aureus; J12.82 Pneumonia due to coronavirus disease 2019; Z68.41 Body mass index [BMI] 40.0-44.9, adult; I47.1 Supraventricular tachycardia; I10 Essential (primary) hypertension; E66.01 Morbid (severe) obesity due to excess calories; K21.9 Gastro-esophageal reflux disease without esophagitis; T38.0X5A Adverse effect of glucocorticoids and synthetic analogues, initial encounter; E78.5 Hyperlipidemia, unspecified; E11.65 Type 2 diabetes mellitus with hyperglycemia; Z79.84 Long term (current) use of oral hypoglycemic drugs; Z28.3 Underimmunization status; Z79.899 Other long term (current) drug therapy
CPT/HCPCS: 36415; 71045; 71275; 80053; 82728; 82962; 83036; 83605; 83615; 83880; 84145; 84484; 85025; 85379; 86140; 87040; 87070; 87077; 87186; 87205; 87426; 87449; 87633; 87804; 93005; 94002; 94003; 94660; 94667; 97110; 97162; 97166; 97530; 99285; J7040; J7050; Q9967; A4216; J1940; J2405

== ENCOUNTER 2021-03-03 11:15 | Outpatient (CLI) | payer BC, SELFPAY ==
[2021-03-03 11:30] VITALS: PULSE 100; PULSE 102; PULSE 90; PULSE 91; PULSE 94; O2SAT 89; O2SAT 90; O2SAT 95
--- NOTE | 2021-03-03 11:49 | CPS ---
PATIENT WEARS 3l OF OXYGEN CURRENTLY. PATIENTS SAT'S WERE 95% ON RA, THEREFORE TEST WAS INITIATED WITHOUT OXYGEN. PATIENTS SAT'S REMAINED ABOVE 89% FOR REMAINDER OF TEST.
--- NOTE | 2021-03-05 07:19 | WT_ITS ---
PSN 6 Minute Walk Test 6 Minute Walk Test 6 Minute Walk Test: 6 Minute Walk Test PSN:6-Minute Walk Test Start: 03/03/21 11:44 Freq: Status: Active Protocol: RESP.6MINW Document 03/03/21 11:30 HJ (Rec: 03/03/21 11:48 [id number]) 6 Minute Walk Test Date Performed 03/03/21 Time Performed 11:30 Height 5 ft 10 in Weight: 134.263 kg Weight in Pounds 296.[address]: Jacqueline Haney MERCHANDISE DISTRIBUTOR FIO2 (% Oxygen) 21 Assistive device used: None Pre-test Oxygen Delivery Method Room Air Pulse Ox (%) 95 Pulse Rate (60-100 beats/min) 90 Dyspnea Rebecca Scale (0-10) 0 Exertion Rebecca Scale (6-20) 6 1st minute Oxygen Delivery Method Room Air Pulse Ox (%) 90 Pulse Rate (60-100 beats/min) 90 2nd minute Oxygen Delivery Method Room Air Pulse Ox (%) 89 Pulse Rate (60-100 beats/min) 94 3rd minute Oxygen Delivery Method Room Air Pulse Ox (%) 89 Pulse Rate (60-100 beats/min) 100 4th minute Oxygen Delivery Method Room Air Pulse Ox (%) 89 Pulse Rate (60-100 beats/min) 91 5th minute Oxygen Delivery Method Room Air Pulse Ox (%) 89 Pulse Rate (60-100 beats/min) 100 6th minute Oxygen Delivery Method Room Air Pulse Ox (%) 90 Pulse Rate (60-100 beats/min) 102 H Post-test Oxygen Delivery Method Room Air Pulse Ox (%) 95 Pulse Rate (60-100 beats/min) 91 Dyspnea Rebecca Scale (0-10) 1 Exertion Rebecca Scale (6-20) 6 Full Laps Walked 17 Partial Lap, Number of Tiles Walked 0 Total Distance Walked (ft) 1003 03/03/21 11:49 Cardiopulmonary Services by Chani Enrique PATIENT WEARS 3l OF OXYGEN CURRENTLY. PATIENTS SAT'S WERE 95% ON RA, THEREFORE TEST WAS INITIATED WITHOUT OXYGEN. PATIENTS SAT'S REMAINED ABOVE 89% FOR REMAINDER OF TEST. Initialized on 03/03/21 11:49 - END OF NOTE Interpretation Interpretation: The patient ambulated 1003 feet over the course of 6 minutes beginning on room air without assistive devices. Pretesting oxygen saturation was noted to be 95% on room air. With ambulation, the [place] oxygen saturation was 89%. This represents a significant exertional oxygen desaturation. Recommendations Recommendations: There is no indication for the use of supplemental oxygen at this time. However, close interval follow-up is recommended, given the degree of oxygen desaturation noted during this study.
== END 2021-03-03 23:59 | disposition short-term general hospital (02) ==
LOC: PSN 11:18
PROVIDERS: PCP Internal Medicine; Referring Provider Nurse Practitioner Acute Care; Visit Provider Nurse Practitioner Acute Care
DX: U07.1 COVID-19 (principal); J12.82 Pneumonia due to coronavirus disease 2019
CPT/HCPCS: 94618

== ENCOUNTER 2021-05-15 11:40 | Emergency (ER) | payer BC, SELFPAY ==
[2021-05-15 11:42] VITALS: BP 150/96; PULSE 84; RESP 14; TEMP 35.6; O2SAT 95; BMI 30.1
--- NOTE | 2021-05-15 12:07 | EDS_ITS ---
HPI History of Present Illness HPI Narrative: Patient presents with pain in his right leg that has been getting worse over the past 4 days. Patient states it is gradually gotten worse. Patient states it has been constant. Patient denies any trauma or injury. Patient states it began while he was driving. Patient describes his pain as stabbing. Patient states it is worse with walking. Patient states he has been taking some pain medication which has been helping. Patient admits to some numbness and tingling in his right thigh. Patient denies any back pain. Patient denies any bowel or bladder changes. Patient denies any saddle anesthesia. Chief Complaint: Lower Extremity Injury Informant: patient Onset/Context/Timing Onset: Days (4) Context: Gradual Onset Timing: Continuous Quality of Pain: Stabbing Worsened by: Walking Relieved by: Analgesics Associated Symptoms Associated Symptoms: Positive for Parasthesia; Negative for Weakness and Loss of Funtion [facility] Medical History Diabetes Diabetes type 2, controlled Hypertension Home Medications glimepiride [Amaryl] 4 mg PO DAILY 01/14/21 [History Last Taken Unknown] lansoprazole [Prevacid] 30 mg PO DAILY 01/14/21 [History Last Taken Unknown] lisinopril 20 mg PO DAILY 01/14/21 [History Last Taken Unknown] metformin 500 mg PO BID 01/14/21 [History Last Taken Unknown] omega-3 fatty acids 2,000 mg PO DAILY 01/14/21 [History Last Taken Unknown] simvastatin [Zocor] 40 mg PO DAILY 01/14/21 [History Last Taken Unknown] acetaminophen [Tylenol] 650 mg PO Q6H PRN PRN #0 tab 01/26/21 [Rx Last Taken Unknown] guaifenesin [Mucus Relief ER] 1,200 mg PO BID #10 tab 01/26/21 [Rx Last Taken Unknown] ibuprofen 600 mg PO Q8H PRN PRN #0 tab 01/26/21 [Rx Last Taken Unknown] sodium chloride [Deep Sea Nasal] 2 spray NASAL TID PRN PRN #0 ml 01/26/21 [Rx Last Taken Unknown] pioglitazone 30 mg tablet 30 mg PO DAILY 03/03/21 [History Last Taken Unknown] hydrocodone-acetaminophen 1 tab PO Q6H PRN PRN 3 Days #10 tablet 05/15/21 [Rx Last Taken Unknown] prednisone 60 mg PO DAILY #15 tablet 05/15/21 [Rx Last Taken Unknown] Allergy/AdvReac Type Severity Reaction Status Date / Time No Known Allergies Allergy Verified 05/15/21 11:41 Family History (Updated 03/03/21 @ 10:45 by Lori Dozier) Father Colon cancer Other Heart disease Surgical History History of appendectomy Social History household members: spouse, children and other details: [id number] housing: house pets and animals: Yes Smoking Status: Former smoker quit date: 02/18/06 pack-years: 18 Tobacco: How many years used: 18 second hand exposure: Yes alcohol intake: current alcohol intake frequency: a few times a week Alcohol type: beer substance use type: does not use ROS ROS ED Constitutional Constitutional ED: Denies chills or fever(s) Eyes Eyes: Denies blurry vision or change in vision ENT ENT ED: Denies rhinorrhea or sore throat Cardiovascular Cardiovascular: Denies chest pain or palpitations Respiratory/Chest Respiratory/Chest: Denies cough or dyspnea Gastrointestinal Gastrointestinal: Denies nausea or vomiting Genitourinary Genitourinary ED: Denies dysuria or hematuria Musculoskeletal Musculoskeletal: Denies back pain or neck pain Integumentary Denies abscess or rash Neurologic Neurologic: Denies headache(s) or weakness Allergic/Immunologic Allergic/Immunologic ED: Denies mouth swelling or urticaria EXAM Physical Exam Const Vital Signs: 05/15/21 11:42 05/15/21 14:24 Temperature 96.1 F L Temperature Source Temporal Pulse Rate 84 83 Respiratory Rate 14 15 Blood Pressure 150/96 H 142/78 H Blood Pressure Mean 114 99 Pulse Ox 95 99 Oxygen Delivery Method Room Air Room Air Positive well nourished and well developed General Appearance ED: well developed and NAD HEENT Reports moist mucous membranes Neck full ROM Back/Spine Back/Spine Narrative: There is some mild tenderness over the right posterior hip and sciatic notch. There is no tenderness over the thigh or lower leg. There is good range of motion of the knee and ankle. There is no edema or ecchymosis. There is no deformity. Pedal pulses are equal bilaterally. Extremity normal to inspection and full ROM Neuro oriented x3, CN's II-XII intact bilaterally, moves all extremities and no sensory deficits noted Sensorium / Orientation: alert Motor Exam: strength 5/5 throughout Deep Tendon Reflexes: Rt Patellar (L4): 2+, Lt Patellar (L4): 2+, Rt Ankle (S1): 2+ and Lt Ankle (S1): 2+ Deep Tendon Reflexes Back: Rt Patellar (L4): 2+, Lt Patellar (L4): 2+, Rt Ankle (S1): 2+ and Lt Ankle (S1): 2+ Psych mental status grossly normal MDM MDM MDM Narrative Medical decision making narrative: Patient was given injection of morphine here. X-rays of the lumbar spine were obtained. There are 3 views. On my interpretation, there is some mild to space narrowing of L5-S1 and L4-L5. There is no acute fracture or spondylolisthesis. Radiologist also interpreted the x- rays and agrees. Patient states his pain has improved but is not completely resolved. Patient was advised of his findings. Patient was given a prescription for a short course of [place]. Patient was given a prescription for prednisone. Patient was instructed to follow-up with his primary care physician in 5 to 7 days for reevaluation. Patient understood and was agreeable with the plan. All questions were answered. Radiography X-Ray: LS SPine, Read by ED Physician, Read by Radiologist and Disk Space Narrowing Diagnostic Testing: Clinical Impression(s) from Imaging Studies Lumbar Spine X-Ray 05/15/21 12:15 IMPRESSION: Mild disc space narrowing at L4-L5 and L5-S1.. Electronically Signed: Nadeem Cox MD at 13:19 EDT Reading Location ID and State: [facility] / [place] , Service support , Discharge Plan Triage Chief Complaint: Lower Extremity Injury ED Provider: Juwan Shea Dx/Rx/DC Orders Clinical Impression: Sciatica of right side Instructions: ED Sciatica Prescriptions: New hydrocodone-acetaminophen [hydrocodone-acetaminophen] 1 TABLET tablet 1 tab PO Q6H PRN PRN (Reason: Pain) 3 Days Qty: 10 RF: 0 prednisone 20 MG tablet 60 mg PO DAILY Qty: 15 RF: 0 No Action pioglitazone 30 mg tablet 30 mg PO DAILY RF: 0 metformin 500 mg Tablet 500 mg PO BID RF: 0 lisinopril 20 mg Tablet 20 mg PO DAILY RF: 0 simvastatin [Zocor] 40 mg Tablet 40 mg PO DAILY RF: 0 glimepiride [Amaryl] 4 mg Tablet 4 mg PO DAILY RF: 0 lansoprazole [Prevacid] 30 mg Capsule,Delayed Release(Dr/Ec) 30 mg PO DAILY RF: 0 omega-3 fatty acids Capsule 2,000 mg PO DAILY RF: 0 Mucus Relief ER 1,200 mg Tablet Extended Release 12hr 1,200 mg PO BID Qty: 10 RF: 0 acetaminophen [Tylenol] 325 mg Tablet 650 mg PO Q6H PRN PRN (Reason: Pain Score 1-10/Temp > 100.7 F) Qty: 0 RF: 0 ibuprofen 600 mg Tablet 600 mg PO Q8H PRN PRN (Reason: fever, pain 1-10/10) Qty: 0 RF: 0 sodium chloride [Deep Sea Nasal] 0.65 % Aerosol,[place] 2 spray NASAL TID PRN PRN (Reason: NASAL DRYNESS) Qty: 0 RF: 0 Primary Care Provider: Cecelia Villalobos Referrals: Cecelia Villalobos MD [Primary Care Provider] - 3-5 Days Disposition Disposition: Home, Self Care
--- NOTE | 2021-05-15 12:15 | RAD_ITS ---
STUDY: X-RAY - LUMBAR SPINE REASON FOR EXAM: Male, 51 years old. Injury/Pain TECHNIQUE: 3 view(s) of the lumbar spine were obtained. COMPARISON: None FINDINGS: Normal lumbar lordosis. There is no substantial scoliosis. There is a normal alignment of the vertebrae. Normal vertebral bodies and endplates. Mild disc space narrowing is present at L4-L5 and L5-S1. Normal remaining disc spaces. No fracture or compression deformity is seen. Mild aortic calcifications noted. The soft tissue structures are unremarkable. RAD/Lumbar Spine 2 or 3 Views IMPRESSION: Mild disc space narrowing at L4-L5 and L5-S1.. Electronically Signed: Nadeem Cox MD at 13:19 EDT ,
[2021-05-15] MEDS: Morphine 4 MG/ML Syringe IM (12:47)
[2021-05-15 14:24] VITALS: BP 142/78; PULSE 83; RESP 15; O2SAT 99
[2021-05-15] MEDS: HYDROcodone Bitartrate/Apap 5/325 Tablet PO (14:41)
[2021-05-15] MEDS: predniSONE 20 MG Tablet 60 MG PO (14:41)
[2021-05-15 14:49] VITALS: BP 136/73; PULSE 85; RESP 15; O2SAT 98
== END 2021-05-15 14:50 | disposition home or self-care (01) ==
PROVIDERS: Emergency Provider Emergency Medicine; PCP Internal Medicine; Visit Provider Emergency Medicine
DX: M54.31 Sciatica, right side (principal); E11.9 Type 2 diabetes mellitus without complications; I10 Essential (primary) hypertension; Z79.84 Long term (current) use of oral hypoglycemic drugs; Z79.899 Other long term (current) drug therapy; Z87.891 Personal history of nicotine dependence
CPT/HCPCS: 72100; 96372; 99284

== ENCOUNTER 2021-05-16 18:58 | Emergency (ER) | payer BC, SELFPAY ==
[2021-05-16 18:59] VITALS: BP 177/88; PULSE 80; RESP 16; TEMP 36.6; O2SAT 96; BMI 41.5
[2021-05-16] MEDS: Ketorolac 15 MG/ML Vial IM (21:46)
[2021-05-16] MEDS: HYDROmorphone 1 MG/ML Syringe IM (21:48)
--- NOTE | 2021-05-16 21:56 | EDS_ITS ---
HPI History of Present Illness Chief Complaint: Back Narrative Narrative: 51-year-old male presenting with right-sided back pain and gluteal pain. This radiates down the back of his leg on the right. Patient seen yesterday and had x-rays of his lumbar spine and was treated with [place] for home. He states that initially he was able to get up and ambulate around the house but after sitting and laying on the couch for a while he could not get up. He reports that he had somebody can get his [place] for him. He took 4 within the last 6 hours and states his pain is actually now improving but he still having pain. No cauda equina symptoms. Eating and drinking normally. Making normal urine and stool. No fever. No new trauma. [facility] Medical History Diabetes Diabetes type 2, controlled Hypertension Home Medications glimepiride [Amaryl] 4 mg PO DAILY 01/14/21 [History Last Taken Unknown] lansoprazole [Prevacid] 30 mg PO DAILY 01/14/21 [History Last Taken Unknown] lisinopril 20 mg PO DAILY 01/14/21 [History Last Taken Unknown] metformin 500 mg PO BID 01/14/21 [History Last Taken Unknown] omega-3 fatty acids 2,000 mg PO DAILY 01/14/21 [History Last Taken Unknown] simvastatin [Zocor] 40 mg PO DAILY 01/14/21 [History Last Taken Unknown] acetaminophen [Tylenol] 650 mg PO Q6H PRN PRN #0 tab 01/26/21 [Rx Last Taken Unknown] ibuprofen 600 mg PO Q8H PRN PRN #0 tab 01/26/21 [Rx Last Taken Unknown] pioglitazone 30 mg tablet 30 mg PO DAILY 03/03/21 [History Last Taken Unknown] hydrocodone-acetaminophen 1 tab PO Q6H PRN PRN 3 Days #10 tablet 05/15/21 [Rx Last Taken Unknown] prednisone 60 mg PO DAILY #15 tablet 05/15/21 [Rx Last Taken Unknown] oxycodone 5 mg PO BID PRN 3 Days #12 cap 05/16/21 [Rx Last Taken Unknown] Allergy/AdvReac Type Severity Reaction Status Date / Time No Known Allergies Allergy Verified 05/16/21 19:00 Family History Father Colon cancer Other Heart disease Surgical History History of appendectomy Social History household members: spouse, children and other details: [id number] housing: house pets and animals: Yes Smoking Status: Former smoker quit date: 02/18/06 pack-years: 18 Tobacco: How many years used: 18 second hand exposure: Yes alcohol intake: current alcohol intake frequency: a few times a week Alcohol type: beer substance use type: does not use ROS ROS ED Constitutional Constitutional ED: Denies chills or fever(s) Eyes Eyes: Denies blurry vision or diplopia ENT ENT ED: Denies rhinorrhea or sore throat Cardiovascular Cardiovascular: Denies chest pain or palpitations Respiratory/Chest Respiratory/Chest: Denies dyspnea or sputum Gastrointestinal Gastrointestinal: Denies abdominal pain or nausea Genitourinary Genitourinary ED: Denies dysuria Musculoskeletal Musculoskeletal: Reports back pain Integumentary Denies Abrasions or rash Neurologic Neurologic: Denies headache(s) or weakness Psychiatric Psychiatric: Denies anxiety or depression EXAM Physical Exam Const Vital Signs: 05/16/21 18:59 05/16/21 22:42 Temperature 97.8 F Temperature Source Temporal Pulse Rate 80 76 Respiratory Rate 16 16 Blood Pressure 177/88 H 137/84 H Blood Pressure Mean 117 101 Pulse Ox 96 95 Oxygen Delivery Method Room Air Room Air Positive well nourished and obese General Appearance ED: NAD; Negative for pallor Nutritional Appearance: obese HEENT Reports moist mucous membranes Negative for trauma Eyes PERRL and EOMs intact bilaterally Resp normal respiratory effort Cardio regular rate and regular rhythm Back/Spine Back/Spine Narrative: No midline lumbar spinal tenderness, deformity, step-off. There is tenderness over the left gluteal region and left posterior thigh. Lumbar Spine / Lower Back: straight leg raise positive right at 30 degrees Extremity normal to inspection General Extremety ED: Negative for edema General Extremity: Negative for edema Neuro oriented x3 Sensorium / Orientation: alert Psych mental status grossly normal Skin no rashes or lesions noted and no wounds General Skin Exam: Negative for jaundice or pallor MDM MDM MDM Narrative Medical decision making narrative: Patient presenting with acute exacerbation of recently diagnosed sciatica. He states that the [place] is not helping. He is given an IM dose of Toradol 15 mg and 1 mg of Dilaudid IM. I do not believe he needs new imaging. There is no signs or symptoms of cauda equina syndrome. I had a long discussion with him that his pain would likely not get better in 24 hours. He will need to do alternating icing and heating as well as stretching of the muscles. He will likely need follow-up for physical therapy if not improving rapidly. He is currently on prednisone and has [place] at home. I offered to change his medication to oxycodone. He was amenable to this plan. Receiving Dilaudid he stated he had did have improvement of his pain somewhat. It is not 0. He request this prescription to be sent to the pharmacy at [facility] which was done so that he can get meds to beds. He will be discharged home with his . Impression: 1. Sciatica Discharge Plan Triage Chief Complaint: Back ED Provider: Jose Paul Dx/Rx/DC Orders Instructions: ED Sciatica Prescriptions: New oxycodone 5 mg capsule 5 mg PO BID PRN (Reason: pain) 3 Days Qty: 12 RF: 0 No Action pioglitazone 30 mg tablet 30 mg PO DAILY RF: 0 metformin 500 mg Tablet 500 mg PO BID RF: 0 lisinopril 20 mg Tablet 20 mg PO DAILY RF: 0 simvastatin [Zocor] 40 mg Tablet 40 mg PO DAILY RF: 0 glimepiride [Amaryl] 4 mg Tablet 4 mg PO DAILY RF: 0 lansoprazole [Prevacid] 30 mg Capsule,Delayed Release(Dr/Ec) 30 mg PO DAILY RF: 0 omega-3 fatty acids Capsule 2,000 mg PO DAILY RF: 0 acetaminophen [Tylenol] 325 mg Tablet 650 mg PO Q6H PRN PRN (Reason: Pain Score 1-10/Temp > 100.7 F) Qty: 0 RF: 0 ibuprofen 600 mg Tablet 600 mg PO Q8H PRN PRN (Reason: fever, pain 1-10/10) Qty: 0 RF: 0 hydrocodone-acetaminophen [hydrocodone-acetaminophen] 1 TABLET tablet 1 tab PO Q6H PRN PRN (Reason: Pain) 3 Days Qty: 10 RF: 0 prednisone 20 MG tablet 60 mg PO DAILY Qty: 15 RF: 0 Primary Care Provider: Cecelia Villalobos Referrals: Cecelia Villalobos MD [Primary Care Provider] - Disposition Disposition: Home, Self Care
[2021-05-16] MEDS: oxyCODONE 5 MG Tablet PO (22:39)
[2021-05-16 22:42] VITALS: BP 137/84; PULSE 76; RESP 16; O2SAT 95
[2021-05-16 22:56] VITALS: PULSE 66; RESP 17
== END 2021-05-16 23:15 | disposition home or self-care (01) ==
PROVIDERS: Emergency Provider Student in an Organized Health Care Education/Training Program; PCP Internal Medicine; Visit Provider Student in an Organized Health Care Education/Training Program
DX: M54.30 Sciatica, unspecified side (principal); E11.9 Type 2 diabetes mellitus without complications; Z79.4 Long term (current) use of insulin; I10 Essential (primary) hypertension; E66.9 Obesity, unspecified; Z79.899 Other long term (current) drug therapy; Z87.891 Personal history of nicotine dependence
CPT/HCPCS: 96372; 99284

== ENCOUNTER → 2021-06-09 | Outpatient (CLI) | payer BC, SELFPAY | END | disposition home or self-care (01) | PROVIDERS: PCP Internal Medicine; Referring Provider Nurse Practitioner Acute Care; Visit Provider Nurse Practitioner Acute Care | DX: G47.33 Obstructive sleep apnea (adult) (pediatric) (principal) | CPT/HCPCS: 95811 ==

== ENCOUNTER → 2021-10-06 | Outpatient (CLI) | payer BC, SELFPAY | END | disposition home or self-care (01) | LOC: SL 14:45 | PROVIDERS: PCP Internal Medicine; Visit Provider Nurse Practitioner Acute Care | DX: Z00.00 Encounter for general adult medical examination without abnormal findings (principal) ==

== ENCOUNTER → 2021-10-19 | Outpatient (CLI) | payer BC, SELFPAY | END | disposition home or self-care (01) | LOC: SL 10:24 | PROVIDERS: PCP Internal Medicine; Visit Provider Nurse Practitioner Acute Care | DX: Z46.89 Encounter for fitting and adjustment of other specified devices (principal) ==